=== PATIENT | male | born 1975 | race Caucasian/White ===

== ENCOUNTER 2022-09-25 07:59 | Inpatient (IN) | payer BC ==
[2022-09-25] MEDS ORDERED: HYDROmorphone 1 MG/ML 1 ML SYRINGE IVP STA ×3 (08:17→11:15)
[2022-09-25] MEDS ORDERED: SODIUM CHLORIDE 0.9% 1,000 ML IV STA (08:17)
[2022-09-25] MEDS ORDERED: ONDANSETRON 4 MG/2 ML VIAL IVP STA (08:17)
[2022-09-25] MEDS ORDERED: FAMOTIDINE 20 MG/2 ML VIAL IV STA (08:17)
--- NOTE | 2022-09-25 08:19 | ED ---
General Adult HPI - General Chief complaint: Abdominal Pain Stated complaint: Abd pain Time Seen by Provider: 09/25/22 08:10 Source: patient, RN notes reviewed Mode of arrival: ambulatory Limitations: no limitations - History of Present Illness Initial comments: Patient is a pleasant 46-year-old male presenting to the emergency department with concerns with abdominal pain. Onset of symptoms was a few hours ago. Symptoms have presently worsened since that time. Patient is nauseated however no vomiting. No history of similar symptoms previously. No fever. No constipation or diarrhea. Discomfort is somewhat severe at this point. - Related Data Allergies Allergy/AdvReac Type Severity Reaction Status Date / Time No Known Allergies Allergy Verified 09/25/22 08:06 Review of Systems ROS Statement: Those systems with pertinent positive or pertinent negative responses have been documented in the HPI. ROS Other: All systems not noted in ROS Statement are negative. Constitutional: Denies: fever Eyes: Denies: eye pain ENT: Denies: ear pain Respiratory: Denies: cough Cardiovascular: Denies: chest pain Endocrine: Denies: fatigue Gastrointestinal: Reports: as per HPI, abdominal pain, nausea. Denies: vomiting, diarrhea, constipation Genitourinary: Denies: dysuria Musculoskeletal: Denies: arthralgia Skin: Denies: rash Neurological: Denies: weakness Past Medical History Past Medical History: No Reported History History of Any Multi-Drug Resistant Organisms: None Reported Past Surgical History: No Surgical Hx Reported Past Psychological History: No Psychological Hx Reported Smoking Status: Never smoker Past Alcohol Use History: Occasional Past Drug Use History: None Reported General Exam Limitations: no limitations General appearance: alert Head exam: Present: atraumatic Eye exam: Present: normal appearance Neck exam: Present: normal inspection Respiratory exam: Present: normal lung sounds bilaterally Cardiovascular Exam: Present: regular rate, normal rhythm Expanded Peripheral pulses: 2+: Dorsalis Pedis (R), Dorsalis Pedis (L) GI/Abdominal exam: Present: soft, tenderness (Moderate diffuse tenderness), guarding, normal bowel sounds. Absent: rebound, rigid, pulsatile mass Extremities exam: Present: normal inspection Neurological exam: Present: alert Psychiatric exam: Present: normal affect, normal mood Skin exam: Present: normal color Course Vital Signs 09/25/22 08:04 Temperature 98 F Pulse Rate 75 Respiratory 18 Rate Blood Pressure 145/70 O2 Sat by Pulse 98 Oximetry Medical Decision Making - Medical Decision Making Patient reevaluated and still uncomfortable however improved from prior. Patient updated on results and plan. Patient denies significant alcohol use and states he rarely drinks. Patient states he is not drank alcohol heavily since his early 20s. No history of previous pancreatitis. Case was discussed with Dr. Vega, who will admit covering Dr. Laguerre - Lab Data Result diagrams: 09/25/22 08:30 09/25/22 08:30 Lab Results 09/25/22 09/25/22 09/25/22 Range/Units 08:30 08:30 08:30 WBC 17.7 H (3.8-10.6) k/uL RBC 4.97 (4.30-5.90) m/uL Hgb 15.8 (13.0-17.5) gm/dL Hct 44.7 (39.0-53.0) % MCV 89.8 (80.0-100.0) fL MCH 31.9 (25.0-35.0) pg MCHC 35.5 (31.0-37.0) g/dL RDW 12.0 (11.5-15.5) % Plt Count 312 (150-450) k/uL MPV 7.7 Neutrophils % 63 % Lymphocytes % 24 % Monocytes % 8 % Eosinophils % 2 % Basophils % 1 % Neutrophils # 11.1 H (1.3-7.7) k/uL Lymphocytes # 4.3 (1.0-4.8) k/uL Monocytes # 1.4 H (0-1.0) k/uL Eosinophils # 0.4 (0-0.7) k/uL Basophils # 0.1 (0-0.2) k/uL PT 10.0 (9.0-12.0) sec INR 0.9 (<1.2) APTT 21.6 L (22.0-30.0) sec Sodium 140 (137-145) mmol/L Potassium 4.5 (3.5-5.1) mmol/L Chloride 106 (98-107) mmol/L Carbon Dioxide 24 (22-30) mmol/L Anion Gap 10 mmol/L BUN 17 (9-20) mg/dL Creatinine 0.93 (0.66-1.25) mg/dL Est GFR (CKD-EPI)AfAm >90 (>60 ml/min/1.73 sqM) Est GFR (CKD-EPI)NonAf >90 (>60 ml/min/1.73 sqM) Glucose 144 H (74-99) mg/dL Calcium 8.4 (8.4-10.2) mg/dL Total Bilirubin 0.8 (0.2-1.3) mg/dL AST 59 (17-59) U/L ALT 82 H (4-49) U/L Alkaline Phosphatase 87 (38-126) U/L Total Protein 6.9 (6.3-8.2) g/dL Albumin 4.4 (3.5-5.0) g/dL Amylase 2319 H* (30-110) U/L Lipase >87424 H (23-300) U/L - Radiology Data Interpreted by me: Computed tomography scan concerning for pancreatitis Disposition Clinical Impression: Pancreatitis Disposition: ADMITTED IP TO THIS HOSP Is patient prescribed a controlled substance at d/c from ED?: No Referrals: Tray Laguerre MD [Primary Care Provider] - 1-2 days Time of Disposition: 11:12
[2022-09-25 08:45] LABS: Basophils # (A) 0.1 k/uL (0-0.2); Basophils % (A) 1 %; Eosinophils # (A) 0.4 k/uL (0-0.7); Eosinophils % (A) 2 %; HCT 44.7 % (39.0-53.0); HGB 15.8 gm/dL (13.0-17.5); Lymphocytes # (A) 4.3 k/uL (1.0-4.8); Lymphocytes % (A) 24 %; MCH 31.9 pg (25.0-35.0); MCHC 35.5 g/dL (31.0-37.0); MCV 89.8 fL (80.0-100.0); Mean Platelet Volume 7.7; Monocytes # (A) 1.4 k/uL (0-1.0); Monocytes % (A) 8 %; Neutrophils # (A) 11.1 k/uL (1.3-7.7); Neutrophils % (A) 63 %; Platelet Count 312 k/uL (150-450); RBC 4.97 m/uL (4.30-5.90); WBC 17.7 k/uL (3.8-10.6)
[2022-09-25 09:08] LABS: ALT 82 U/L (4-49); AST 59 U/L (17-59); African American GFR (CKD) >90 (>60 ml/min/1.73 sqM); Albumin 4.4 g/dL (3.5-5.0); Alkaline Phosphatase 87 U/L (38-126); Anion Gap 10 mmol/L; Blood Urea Nitrogen 17 mg/dL (9-20); Calcium 8.4 mg/dL (8.4-10.2); Carbon Dioxide 24 mmol/L (22-30); Chloride 106 mmol/L (98-107); Glucose 144 mg/dL (74-99); Non-African American GFR(CKD) >90 (>60 ml/min/1.73 sqM); Potassium 4.5 mmol/L (3.5-5.1); Sodium 140 mmol/L (137-145); Total Bilirubin 0.8 mg/dL (0.2-1.3); Total Protein 6.9 g/dL (6.3-8.2)
--- NOTE | 2022-09-25 09:32 | CT ---
EXAMINATION TYPE: CT abdomen pelvis wo con DATE OF EXAM: 09/25/2022 COMPARISON: None HISTORY: Right lower quadrant abdominal pain and nausea. CT DLP: 1595.4 mGycm Examination of the solid and hollow viscera is limited given the lack of contrast. FINDINGS: LUNG BASES: No evidence for nodule. No evidence for infiltrate. LIVER/GB: The gallbladder is unremarkable. No space-occupying hepatic lesion. PANCREAS: There is edema of the pancreatic head and neck with peripancreatic stranding compatible wit h pancreatitis. No evidence for pseudocyst. Correlate with amylase and lipase. SPLEEN: No evidence for splenomegaly. No intrasplenic lesions seen. ADRENALS: No adrenal nodules identified. No evidence for thickening. KIDNEYS: No evidence for renal mass. No nephrolithiasis. No hydronephrosis. BOWEL: Appendix has a normal appearance. No evidence of bowel obstruction. No inflammatory process. Lymph nodes: No evidence for adenopathy greater than 1 cm. Abdominal aorta: Atheromatous changes seen. No evidence for aneurysm. Genital organs: No significant abnormality. Other: No significant abnormality. IMPRESSION: 1. Findings compatible with acute pancreatitis. Correlate with amylase and lipase.
[2022-09-25 09:47] LABS: Amylase 2319 U/L (30-110)
[2022-09-25 10:00] LABS: INR 0.9 (<1.2)
[2022-09-25 10:03] LABS: Partial Thromboplastin Time 21.6 sec (22.0-30.0)
[2022-09-25 10:12] LABS: Lipase >20000 U/L (23-300)
[2022-09-25] MEDS ORDERED: NALOXONE 0.4 MG/ML 1 ML VIAL IV PRN (11:13)
[2022-09-25] MEDS ORDERED: HYDROmorphone 1 MG/ML 1 ML SYRINGE IVP PRN (11:13)
[2022-09-25] MEDS: SODIUM CHLORIDE 0.9% 1,000 ML IV SCH ×2 (11:24→17:53)
[2022-09-25] MEDS: PANTOPRAZOLE 40 MG/10 ML VIAL IV SCH (11:25)
[2022-09-25] MEDS: ONDANSETRON 4 MG/2 ML VIAL IVP PRN (11:28)
--- NOTE | 2022-09-25 12:08 | US ---
EXAMINATION TYPE: US gallbladder DATE OF EXAM: 09/25/2022 COMPARISON: NONE CLINICAL HISTORY: pancreatitis. abd pain, pancreatitis TECHNIQUE: Multiple sonographic images of the right upper quadrant are obtained. FINDINGS: EXAM MEASUREMENTS: Liver Length: 18.5 cm Gallbladder Wall: 0.2 cm CBD: 0.5 cm Right Kidney: 11.2 x 5.4 x 6.2 cm Pancreas: not seen due to gas Liver: limited views of left lobe, intercostal imaging of right, upper limits of normal for size Gallbladder: wnl Evidence for sonographic Shipley's sign: yes CBD: wnl Right Kidney: wnl IMPRESSION: No evidence for cholelithiasis. Pancreas limited as visualized.
[2022-09-25] MEDS: HYDROmorphone 1 MG/ML 1 ML SYRINGE IVP PRN ×4 (16:42→23:16)
--- NOTE | 2022-09-25 18:24 | P.HPIM ---
History of Present Illness H&P Date: 09/25/22 Chief Complaint: Abdominal pain 46-year-old male presenting to the emergency department with concerns with abdominal pain. Onset of symptoms was a few hours ago. Symptoms have presently worsened since that time. Patient is nauseated however no vomiting. No history of similar symptoms previously. No fever. No constipation or diarrhea. Discomfort is somewhat severe at this point. Patient denies any history of alcohol abuse; report he used to drink heavily in his early 20s but none since then Blood work completed in ED reveals a WBC of 17.7, hemoglobin of 15.8 and platelet count of 302, sodium 140, potassium 4.5, BUN 17/creatinine of 0.93 and blood glucose of 144 -- Amylase is elevated at 2319, lipase elevated above 20,000 -- CT of abdomen completed reveals changes consistent with pancreatitis Review of Systems Constitutional: Denies: fever Eyes: Denies: eye pain ENT: Denies: ear pain Respiratory: Denies: cough Cardiovascular: Denies: chest pain Endocrine: Denies: fatigue Gastrointestinal: Reports: as per HPI, abdominal pain, nausea. Denies: vomiting, diarrhea, constipation Genitourinary: Denies: dysuria Musculoskeletal: Denies: arthralgia Skin: Denies: rash Neurological: Denies: weakness Past Medical History Past Medical History: GERD/Reflux, Hyperlipidemia, Hypertension History of Any Multi-Drug Resistant Organisms: None Reported Past Surgical History: No Surgical Hx Reported Past Anesthesia/Blood Transfusion Reactions: No Reported Reaction Smoking Status: Never smoker - Past Family History Mother Family Medical History: Diabetes Mellitus Father Additional Family Medical History / Comment(s): mental illness Medications and Allergies Home Medications Medication Instructions Recorded Confirmed Type Atorvastatin [Lipitor] 20 mg PO HS 09/25/22 09/25/22 History Dextroamphetamine/Amphetamine 15 mg PO DAILY 09/25/22 09/25/22 History [Adderall Xr 15 mg Capsule] Losartan Potassium 100 mg PO HS 09/25/22 09/25/22 History Omeprazole 20 mg PO HS 09/25/22 09/25/22 History Zolpidem [Ambien] 10 mg PO HS 09/25/22 09/25/22 History Allergies Allergy/AdvReac Type Severity Reaction Status Date / Time No Known Allergies Allergy Verified 09/25/22 13:17 Physical Exam Vitals: Vital Signs Temp Pulse Pulse Resp BP BP Pulse Ox 09/25/22 12:17 78 16 98 09/25/22 12:15 98.1 F 74 18 154/108 94 L 09/25/22 08:04 98 F 75 18 145/70 98 Intake and Output 09/24/22 09/25/22 09/25/22 22:59 06:59 14:59 Other: Weight 126.099 kg General appearance: alert Head exam: Present: atraumatic Eye exam: Present: normal appearance Neck exam: Present: normal inspection Respiratory exam: Present: normal lung sounds bilaterally Cardiovascular Exam: Present: regular rate, normal rhythm Expanded Peripheral pulses: 2+: Dorsalis Pedis (R), Dorsalis Pedis (L) GI/Abdominal exam: Present: soft, tenderness (Moderate diffuse tenderness), guarding, normal bowel sounds. Absent: rebound, rigid, pulsatile mass Extremities exam: Present: normal inspection Neurological exam: Present: alert Psychiatric exam: Present: normal affect, normal mood Skin exam: Present: normal color Results CBC & Chem 7: 09/25/22 08:30 09/25/22 08:30 Labs: Abnormal Lab Results - Last 24 Hours (Table) 09/25/22 09/25/22 09/25/22 Range/Units 08:30 08:30 08:30 WBC 17.7 H (3.8-10.6) k/uL Neutrophils # 11.1 H (1.3-7.7) k/uL Monocytes # 1.4 H (0-1.0) k/uL APTT 21.6 L (22.0-30.0) sec Glucose 144 H (74-99) mg/dL ALT 82 H (4-49) U/L Amylase 2319 H* (30-110) U/L Lipase >35868 H (23-300) U/L Thrombosis Risk Factor Assmnt - Choose All That Apply Any of the Below Risk Factors Present?: Yes Each Factor Represents 1 point: Age 41-60 years, Obesity (BMI >25) Other Risk Factors: No Other congenital or acquired thrombophilia - If yes, enter type in comment: No Thrombosis Risk Factor Assessment Total Risk Factor Score: 2 Thrombosis Risk Factor Assessment Level: Low Risk Assessment and Plan Assessment: 1. Acute pancreatitis - Patient has been admitted for IV fluid hydration in form of normal saline at a rate of 1 30 mL an hour, Protonix 40 mg IV daily - Pain controlled with IV Dilaudid at 1 mg every 3 hours when necessary - Plan to keep patient nothing by mouth; monitor amylase lipase -- Gen. surgery is consulted for further recommendations and workup 2. Leukocytosis; patient doesn't reveal any sign of infection; likely reactive; we will monitor CBC, CRP and pro-calcitonin; we will plan to initiate sepsis workup if white blood count blood count continues to trend up 3. Hypertension; losartan 100 mg by mouth daily at bedtime 4. Hyperlipidemia; Lipitor 20 mg by mouth daily at bedtime; we will order lipid profile 5. ADHD; Adderall XL 15 mg daily 6. Obesity; patient has a BMI of greater than 36; counseling done on need for weight reduction DVT prophylaxis; SCDs/early ambulation CODE STATUS; full code
[2022-09-25] MEDS: ATORVASTATIN 20 MG TAB PO SCH (20:47)
[2022-09-25] MEDS: LOSARTAN 50 MG TAB PO SCH (20:47)
[2022-09-25] MEDS ORDERED: ZOLPIDEM 5 MG TAB PO PRN (21:00)
[2022-09-26] MEDS: HYDROmorphone 1 MG/ML 1 ML SYRINGE IVP PRN ×10 (01:01→23:58)
[2022-09-26] MEDS: SODIUM CHLORIDE 0.9% 1,000 ML IV SCH ×4 (01:02→23:59)
[2022-09-26] MEDS: DEXTROAMPHETAMINE PO SCH (07:59)
[2022-09-26] MEDS: AMPHETAMINE PO SCH (07:59)
[2022-09-26] MEDS: PANTOPRAZOLE 40 MG/10 ML VIAL IV SCH (08:01)
[2022-09-26 09:50] LABS: Basophils # (A) 0.02 X 10*3/uL (0.00-0.10); Basophils % (A) 0.1 %; Eosinophils # (A) 0.05 X 10*3/uL (0.04-0.35); Eosinophils % (A) 0.3 %; HCT 44.7 % (39.6-50.0); HGB 14.9 g/dL (13.0-17.0); Immature Grans, Automated 0.5 %; Lymphocytes # (A) 1.37 X 10*3/uL (0.90-5.00); Lymphocytes % (A) 9.5 %; MCH 31.4 pg (27.0-32.0); MCHC 33.3 g/dL (32.0-37.0); MCV 94.1 fL (80.0-97.0); Mean Platelet Volume 10.1 fL (9.5-12.2); Monocytes # (A) 1.13 X 10*3/uL (0.20-1.00); Monocytes % (A) 7.8 %; NRBC Per 100 WBC 0 /100 WBCS (0.0-0.0); Neutrophils # (A) 11.83 X 10*3/uL (1.80-7.70); Neutrophils % (A) 81.8 %; Platelet Count 264 X 10*3/uL (140-440); RBC 4.75 X 10*6/uL (4.40-5.60); RDW 12.2 % (11.5-14.5); WBC 14.47 X 10*3/uL (4.50-10.00)
[2022-09-26 09:58] LABS: ALT 63 U/L (10-49); AST 28 U/L (14-35); African American GFR (CKD) 98.2 (60.0-200.0); Albumin 4.2 g/dL (3.8-4.9); Albumin/Globulin Ratio 2.26 (1.60-3.17); Alkaline Phosphatase 82 U/L (41-126); Amylase 382 U/L (23-121); Blood Urea Nitrogen 12.7 mg/dL (9.0-27.0); Calcium 8.8 mg/dL (8.7-10.3); Carbon Dioxide 28.2 mmol/L (20.0-27.5); Chloride 102 mmol/L (96-109); Chol/HDL Ratio 2.56 Ratio; Globulin 1.9 g/dL (1.6-3.3); Glucose 110 mg/dL (70-110); LDH 217 U/L (120-246); LDL Cholesterol,Calculated 43.7 mg/dL (0.0-131.0); Non-African American GFR(CKD) 84.7 (60.0-200.0); Potassium 4.3 mmol/L (3.5-5.5); Sodium 141 mmol/L (135-145); Total Protein 6.1 g/dL (6.2-8.2)
--- NOTE | 2022-09-26 11:11 | P.GSCN ---
History of Present Illness Consult date: 09/26/22 Reason for Consult: Pancreatitis History of present illness: The fourth external male was admitted to the emergency room with complaints of epigastric pain which radiates to his back. Patient's workup found have evidence of hepatitis. Patient denies any significant alcohol use. His last drink was over 3 weeks ago. Patient states he still has pain this morning. Past Medical History Past Medical History: GERD/Reflux, Hyperlipidemia, Hypertension History of Any Multi-Drug Resistant Organisms: None Reported Past Surgical History: No Surgical Hx Reported Past Anesthesia/Blood Transfusion Reactions: No Reported Reaction Smoking Status: Never smoker - Past Family History Mother Family Medical History: Diabetes Mellitus Father Additional Family Medical History / Comment(s): mental illness Medications and Allergies Home Medications Medication Instructions Recorded Confirmed Type Atorvastatin [Lipitor] 20 mg PO HS 09/25/22 09/25/22 History Dextroamphetamine/Amphetamine 15 mg PO DAILY 09/25/22 09/25/22 History [Adderall Xr 15 mg Capsule] Losartan Potassium 100 mg PO HS 09/25/22 09/25/22 History Omeprazole 20 mg PO HS 09/25/22 09/25/22 History Zolpidem [Ambien] 10 mg PO HS 09/25/22 09/25/22 History Allergies Allergy/AdvReac Type Severity Reaction Status Date / Time No Known Allergies Allergy Verified 09/25/22 13:17 Surgical - Exam Vital Signs Temp Pulse Resp BP Pulse Ox 98 F 75 18 145/70 98 09/25/22 08:04 09/25/22 08:04 09/25/22 08:04 09/25/22 08:04 09/25/22 08:04 - General well developed, moderate distress - Eyes PERRL - ENT normal pinna - Neck no masses - Respiratory normal expansion - Cardiovascular Rhythm: regular - Abdomen Mild epigastric tenderness Abdomen: soft Results - Labs 09/26/22 05:29 09/26/22 05:29 Abnormal Lab Results - Last 24 Hours (Table) 09/26/22 09/26/22 Range/Units 05:29 05:29 WBC 14.47 H (4.50-10.00) X 10*3/uL Immature Gran # 0.07 H (0.00-0.04) X 10*3/uL Neutrophils # 11.83 H (1.80-7.70) X 10*3/uL Monocytes # 1.13 H (0.20-1.00) X 10*3/uL Carbon Dioxide 28.2 H (20.0-27.5) mmol/L ALT 63 H (10-49) U/L Total Protein 6.1 L (6.2-8.2) g/dL Triglycerides 165.00 H (0.00-149.00) mg/dL Amylase 382 H* (23-121) U/L Diabetes panel 09/26/22 Range/Units 05:29 Sodium 141 (135-145) mmol/L Potassium 4.3 (3.5-5.5) mmol/L Chloride 102 (96-109) mmol/L Carbon Dioxide 28.2 H (20.0-27.5) mmol/L BUN 12.7 (9.0-27.0) mg/dL Creatinine 1.1 (0.6-1.5) mg/dL Glucose 110 (70-110) mg/dL Calcium 8.8 (8.7-10.3) mg/dL AST 28 (14-35) U/L ALT 63 H (10-49) U/L Alkaline Phosphatase 82 (41-126) U/L Total Protein 6.1 L (6.2-8.2) g/dL Albumin 4.2 (3.8-4.9) g/dL Triglycerides 165.00 H (0.00-149.00) mg/dL HDL Cholesterol 49.30 (40.00-60.00) mg/dL Calcium panel 09/26/22 Range/Units 05:29 Calcium 8.8 (8.7-10.3) mg/dL Albumin 4.2 (3.8-4.9) g/dL Pituitary panel 09/26/22 Range/Units 05:29 Sodium 141 (135-145) mmol/L Potassium 4.3 (3.5-5.5) mmol/L Chloride 102 (96-109) mmol/L Carbon Dioxide 28.2 H (20.0-27.5) mmol/L BUN 12.7 (9.0-27.0) mg/dL Creatinine 1.1 (0.6-1.5) mg/dL Glucose 110 (70-110) mg/dL Calcium 8.8 (8.7-10.3) mg/dL Adrenal panel 09/26/22 Range/Units 05:29 Sodium 141 (135-145) mmol/L Potassium 4.3 (3.5-5.5) mmol/L Chloride 102 (96-109) mmol/L Carbon Dioxide 28.2 H (20.0-27.5) mmol/L BUN 12.7 (9.0-27.0) mg/dL Creatinine 1.1 (0.6-1.5) mg/dL Glucose 110 (70-110) mg/dL Calcium 8.8 (8.7-10.3) mg/dL Total Bilirubin 1.10 (0.30-1.20) mg/dL AST 28 (14-35) U/L ALT 63 H (10-49) U/L Alkaline Phosphatase 82 (41-126) U/L Total Protein 6.1 L (6.2-8.2) g/dL Albumin 4.2 (3.8-4.9) g/dL - Imaging US - abdomen: report reviewed (No evidence of cholelithiasis) Assessment and Plan Assessment: Pancreatitis. The etiology is unclear this time. Patient may have microcalcifications which has caused gallbladder pancreas. Patient will be o bserved.
[2022-09-26 11:35] LABS: Lipase 495 U/L (14-60)
--- NOTE | 2022-09-26 19:17 | P.PN ---
Subjective Progress Note Date: 09/26/22 Principal diagnosis: Acute pancreatitis Transaminitis Obesity 46-year-old male presenting to the emergency department with concerns with abdominal pain. Onset of symptoms was a few hours ago. Symptoms have presently worsened since that time. Patient is nauseated however no vomiting. No history of similar symptoms previously. No fever. No constipation or diarrhea. Discomfort is somewhat severe at this point. Patient denies any history of alcohol abuse; report he used to drink heavily in his early 20s but none since then Blood work completed in ED reveals a WBC of 17.7, hemoglobin of 15.8 and platelet count of 302, sodium 140, potassium 4.5, BUN 17/creatinine of 0.93 and blood glucose of 144 -- Amylase is elevated at 2319, lipase elevated above 20,000 -- CT of abdomen completed reveals changes consistent with pancreatitis Gallbladder and Hepatic ultrasound completed per surgery recommendations and is unremarkable Laboratory review shows improved white blood count of 14.4 from 17.7 yesterday, lipase is down to 495 from greater than 20,000 yesterday Patient reports improvement in pain; we will initiate a clear liquid diet Objective - Vital Signs Vital signs: Vital Signs Temp 98.6 F 09/26/22 05:00 Pulse 99 09/26/22 05:00 Resp 16 09/26/22 05:00 BP 159/107 09/26/22 05:00 Pulse Ox 95 09/26/22 05:00 FiO2 Intake & Output 09/25/22 09/26/22 09/26/22 18:59 06:59 18:59 Intake Total 780 Balance 780 Weight 126.099 kg Intake: Intake, IV Titration 780 Amount Sodium Chloride 0.9% 1, 780 000 ml @ 130 mls/hr IV . Q7H42M [facility] Rx#:[id number] Other: # Voids 2 2 - Exam General appearance: alert Head exam: Present: atraumatic Eye exam: Present: normal appearance Neck exam: Present: normal inspection Respiratory exam: Present: normal lung sounds bilaterally Cardiovascular Exam: Present: regular rate, normal rhythm Expanded Peripheral pulses: 2+: Dorsalis Pedis (R), Dorsalis Pedis (L) GI/Abdominal exam: Present: soft, tenderness (Moderate diffuse tenderness), guarding, normal bowel sounds. Absent: rebound, rigid, pulsatile mass Extremities exam: Present: normal inspection Neurological exam: Present: alert Psychiatric exam: Present: normal affect, normal mood Skin exam: Present: normal color - Labs CBC & Chem 7: 09/26/22 05:29 09/26/22 05:29 Labs: Abnormal Lab Results - Last 24 Hours (Table) 09/25/22 09/25/22 Range/Units 08:30 08:30 APTT 21.6 L (22.0-30.0) sec Lipase >40554 H (23-300) U/L Assessment and Plan Assessment: 1. Acute pancreatitis - Patient has been admitted for IV fluid hydration in form of normal saline at a rate of 1 30 mL an hour, Protonix 40 mg IV daily - Pain controlled with IV Dilaudid at 1 mg every 3 hours when necessary - Plan to keep patient nothing by mouth; monitor amylase lipase -- Gen. surgery is consulted for further recommendations and workup 2. Leukocytosis; patient doesn't reveal any sign of infection; likely reactive; we will monitor CBC, CRP and pro-calcitonin; we will plan to initiate sepsis workup if white blood count blood count continues to trend up 3. Hypertension; losartan 100 mg by mouth daily at bedtime 4. Hyperlipidemia; Lipitor 20 mg by mouth daily at bedtime; we will order lipid profile 5. ADHD; Adderall XL 15 mg daily 6. Obesity; patient has a BMI of greater than 36; counseling done on need for weight reduction DVT prophylaxis; SCDs/early ambulation CODE STATUS; full code
[2022-09-26] MEDS: LOSARTAN 50 MG TAB PO SCH (20:05)
[2022-09-26] MEDS: ATORVASTATIN 20 MG TAB PO SCH (20:05)
[2022-09-26] MEDS: ACETAMINOPHEN TAB 500 MG TAB PO PRN (20:23)
[2022-09-27] MEDS: HYDROmorphone 1 MG/ML 1 ML SYRINGE IVP PRN ×8 (03:49→23:44)
[2022-09-27] MEDS: SODIUM CHLORIDE 0.9% 1,000 ML IV SCH ×4 (06:24→23:42)
[2022-09-27 09:03] LABS: Basophils % (A) 0 %; Eosinophils # (A) 0.1 k/uL (0-0.7); Eosinophils % (A) 1 %; HCT 44.9 % (39.0-53.0); Lymphocytes # (A) 1.3 k/uL (1.0-4.8); Lymphocytes % (A) 11 %; MCH 31.7 pg (25.0-35.0); MCHC 33.4 g/dL (31.0-37.0); Mean Platelet Volume 8.7; Monocytes # (A) 0.9 k/uL (0-1.0); Monocytes % (A) 8 %; Neutrophils # (A) 8.9 k/uL (1.3-7.7); Neutrophils % (A) 79 %; Platelet Count 261 k/uL (150-450); RBC 4.74 m/uL (4.30-5.90); RDW 12.1 % (11.5-15.5); WBC 11.3 k/uL (3.8-10.6)
[2022-09-27 09:04] LABS: African American GFR (CKD) 92.8 (60.0-200.0); Anion Gap 9.8 mmol/L (10.00-18.00); BUN/Creat Ratio 12.55 Ratio (12.00-20.00); Blood Urea Nitrogen 13.8 mg/dL (9.0-27.0); Calcium 8.5 mg/dL (8.7-10.3); Carbon Dioxide 27.2 mmol/L (20.0-27.5); Non-African American GFR(CKD) 80.1 (60.0-200.0); Potassium 4.4 mmol/L (3.5-5.5)
[2022-09-27] MEDS: DEXTROAMPHETAMINE PO SCH (09:12)
[2022-09-27] MEDS: AMPHETAMINE PO SCH (09:12)
[2022-09-27] MEDS: PANTOPRAZOLE 40 MG/10 ML VIAL IV SCH (09:15)
[2022-09-27 09:30] LABS: MCV 94.8 fL (80.0-100.0)
[2022-09-27 10:50] LABS: RBC Morphology Normal
[2022-09-27] MEDS ORDERED: HYDROcodone/APAP 5-325MG 1 EACH TAB PO PRN (11:22)
--- NOTE | 2022-09-27 15:02 | P.PN ---
Subjective Progress Note Date: 09/27/22 CHIEF COMPLAINT: Pancreatitis HISTORY OF PRESENT ILLNESS: Patient continues to have epigastric abdominal pain. He reports feeling bloated. His pain is decreased compared to admission. However does get up to 8 out of 10. He reports that it's been 2 days since his last bowel movement. He did have a low-grade temp of 100.7 last night. Heart rate 107 WBC is down from 14-11.3 Hgb 15 platelets 261 sodium is 138 potassium 4.4 creatinine 1.1 lipase is down to 88 amylase 382 triglycerides 165 total bili 1.1 AST 28 ALT is down from 82-63 gallbladder ultrasound no cholelithiasis PHYSICAL EXAM: VITAL SIGNS: Reviewed. GENERAL: Well-developed in no acute distress. HEENT: No sclera icterus. Extraocular movements grossly intact. Moist buccal mucosa. Head is atraumatic, normocephalic. ABDOMEN: Mildly distended. Epigastric tenderness. NEUROLOGIC: Alert and oriented. Cranial nerves II through XII grossly intact. ASSESSMENT: 1. Acute pancreatitis exact etiology unclear. Possibly due to microscopic gallstones PLAN: -Continue clear liquid diet. Discussed with patient if pain increases after eating to stop eating -Continue IV fluids -Continue pain management -Continue supportive care -Encouraged patient to ambulate Physician [employer] President note has been reviewed by physician. Signing provider agrees with the documented findings, assessment, and plan of care. Objective - Vital Signs Vital signs: Vital Signs Temp 98.6 F 09/27/22 11:27 Pulse 107 H 09/27/22 11:27 Resp 18 09/27/22 11:27 BP 148/94 09/27/22 11:27 Pulse Ox 93 L 09/27/22 11:27 FiO2 Intake & Output 09/26/22 09/27/22 09/27/22 18:59 06:59 18:59 Intake Total 1560 1999 Balance 1560 1999 Intake: Intake, IV Titration 1560 1400 Amount Sodium Chloride 0.9% 1, 1560 1400 000 ml @ 130 mls/hr IV . Q7H42M [facility] Rx#:[id number] Oral 600 Other: Voiding Method Toilet Toilet # Voids 4 - Labs CBC & Chem 7: 09/27/22 05:07 09/27/22 05:07 Labs: Abnormal Lab Results - Last 24 Hours (Table) 09/26/22 09/27/22 09/27/22 Range/Units 05:29 05:07 05:07 WBC 11.3 H (3.8-10.6) k/uL Neutrophils # 8.9 H (1.3-7.7) k/uL Carbon Dioxide 28.2 H (20.0-27.5) mmol/L Anion Gap 9.80 L (10.00-18.00) mmol/L Calcium 8.5 L (8.7-10.3) mg/dL ALT 63 H (10-49) U/L Troponin I (0.000-0.034) ng/mL Total Protein 6.1 L (6.2-8.2) g/dL Triglycerides 165.00 H (0.00-149.00) mg/dL Amylase 382 H* (23-121) U/L Lipase 495 H 88 H (14-60) U/L 09/27/22 Range/Units 13:03 WBC (3.8-10.6) k/uL Neutrophils # (1.3-7.7) k/uL Carbon Dioxide (20.0-27.5) mmol/L Anion Gap (10.00-18.00) mmol/L Calcium (8.7-10.3) mg/dL ALT (10-49) U/L Troponin I 0.065 H* (0.000-0.034) ng/mL Total Protein (6.2-8.2) g/dL Triglycerides (0.00-149.00) mg/dL Amylase (23-121) U/L Lipase (14-60) U/L
[2022-09-27] MEDS: MEROPENEM 2 GM in SODIUM CHLORIDE 0.9% 100 ML IVPB SCH ×2 (15:08→23:42)
[2022-09-27] MEDS: ACETAMINOPHEN TAB 500 MG TAB PO PRN (19:34)
[2022-09-27] MEDS: LOSARTAN 50 MG TAB PO SCH (20:11)
[2022-09-27] MEDS: ATORVASTATIN 20 MG TAB PO SCH (20:11)
--- NOTE | 2022-09-27 20:59 | PN ---
PROGRESS NOTE DATE OF SERVICE: 09/27/2022 SUBJECTIVE: This 46-year-old gentleman, who was admitted with acute pancreatitis, being closely monitored. The patient abdominal pain. No chest pain. No palpitations. No fever. OBJECTIVE: VITAL SIGNS: Pulse is 107, blood pressure ntd, respirations 18. CHEST: Clear to auscultation. CARDIOVASCULAR: S1, S2. ABDOMEN: Soft. Minimal tenderness in the upper abdomen. NERVOUS SYSTEM: Nonfocal. LABORATORY DATA: Reviewed. Lipase 88. ASSESSMENT: 1. Acute pancreatitis, enzymes improving. 2. Leukocytosis. 3. Hypertension. 4. Hyperlipidemia. RECOMMENDATIONS: I recommend to continue current medications and symptomatic treatment. Otherwise, I would also recommend a portable chest x-ray. Continue with IV fluids. EKG, 2D echo with Doppler. Further recommendations to follow. MMODL / IJN: [id number] / MTDD
[2022-09-28] MEDS: HYDROmorphone 1 MG/ML 1 ML SYRINGE IVP PRN ×5 (04:06→20:47)
[2022-09-28] MEDS: MEROPENEM 2 GM in SODIUM CHLORIDE 0.9% 100 ML IVPB SCH ×3 (08:37→23:02)
[2022-09-28] MEDS: PANTOPRAZOLE 40 MG/10 ML VIAL IV SCH (08:37)
[2022-09-28] MEDS: SODIUM CHLORIDE 0.9% 1,000 ML IV SCH ×3 (08:39→23:01)
[2022-09-28] MEDS: DEXTROAMPHETAMINE PO SCH (08:40)
[2022-09-28] MEDS: AMPHETAMINE PO SCH (08:40)
[2022-09-28 09:33] LABS: African American GFR (CKD) 118.3 (60.0-200.0); Albumin 3.5 g/dL (3.8-4.9); Albumin/Globulin Ratio 1.94 (1.60-3.17); Anion Gap 11.9 mmol/L (10.00-18.00); BUN/Creat Ratio 14.67 Ratio (12.00-20.00); Blood Urea Nitrogen 13.2 mg/dL (9.0-27.0); Calcium 8.4 mg/dL (8.7-10.3); Carbon Dioxide 25.1 mmol/L (20.0-27.5); Globulin 1.8 g/dL (1.6-3.3); Non-African American GFR(CKD) 102.1 (60.0-200.0); Potassium 3.7 mmol/L (3.5-5.5); Total Bilirubin 1.2 mg/dL (0.30-1.20); Total Protein 5.3 g/dL (6.2-8.2)
--- NOTE | 2022-09-28 09:35 | P.PN ---
Subjective Progress Note Date: 09/28/22 History of present illness: This is a 46-year-old male patient but does not see a ticket collector. He denies any cardiac history. He does have past medical history of hypertension, hyperlipidemia, gastroesophageal reflux disease. Patient presented to the hospital on 09/25 with abdominal pain and has been diagnosed with acute pancreatitis and followed by general surgery. Patient has had improvement of h is pancreatic enzymes. Patient states his pain is on the lower right rib area and epigastric area. He is complaining of some pain across the upper abdomen bilaterally. No chest pain. He denies shortness of breath, lightheadedness or dizziness, denies palpitations. EKG sinus rhythm with nonspecific ST changes Troponins 0.065, 0.066 and 0.063. Most recent lipase 88. WBC 11.3, hemoglobin 15. Electrolytes within normal limits and creatinine 1.1. quality assurance monitor has been a sinus rhythm Review Of Systems: At the time of my evaluation Constitutional: No fever, no chills. No weakness, fatigue or lethargy. EENT: No headache. No dizziness. Lungs: No shortness of breath, cough, no sputum production. No wheezing. Cardiovascular: No chest pain, no lower extremity edema. No palpitations. No paroxysmal nocturnal dyspnea. No orthopnea. No lightheadedness or dizziness. No syncopal episodes. Abdominal: Reports abdominal pain. No nausea, vomiting. No diarrhea. No constipation. No bloody or tarry stools. No loss of appetite. Genitourinary: No dysuria. No urinary retention. Musculoskeletal: No myalgias. No muscle weakness, no gait dysfunction, no frequent falls. Integumentary: No wounds. No rash or pruritus. No unusual bruising. Neurologic: No aphasia. No facial droop. No change in mentation. No head injury. No headache. Psychiatric: No depression. No anxiety. Endocrine: No abnormal blood sugars. Physical examination: Gen: This is a 46-year-old male. He is resting in bed and appears to be comfortable VS: reviewed HEENT: Head is atraumatic, normocephalic. Pupils equal, round. Sclerae is anicteric. NECK: Supple. No JVD. LUNGS: Clear to auscultation. No wheezes or rhonchi. No intercostal retractions. HEART: Regular rate and rhythm. No murmur. ABDOMEN: Soft. No masses. Generalized upper quadrant tenderness most significant at the epigastric and right rib border. EXTREMITIES: No pedal edema. No calf tenderness. NEUROLOGICAL: Patient is awake, alert and oriented x3. Assessment: Acute pancreatitis Abdominal pain Mildly elevated troponins, flat, not indicative of ischemia Hypertension Hyperlipidemia Plan: Acute coronary syndrome has been ruled out Telemetry monitoring has been a sinus rhythm and can be discontinued Obtain 2-D echocardiogram and Doppler study to assess cardiac structure and function Patient may have outpatient cardiac workup once his acute illness is resolved Further recommendations to follow based upon clinical course Thank you kindly for this consultation. Nurse practitioner note has been reviewed, I agree with documented findings and plan of care. Patient was seen and examined. Objective - Vital Signs Vital signs: Vital Signs Temp 99.1 F 09/28/22 04:07 Pulse 98 09/28/22 04:07 Resp 20 09/28/22 04:07 BP 138/88 09/28/22 04:07 Pulse Ox 97 09/28/22 04:07 FiO2 Intake & Output 09/27/22 09/28/22 09/28/22 18:59 06:59 18:59 Intake Total 1660 2630 Balance 1660 2630 Intake: Intake, IV Titration 1660 1530 Amount Meropenem 2 gm In Sodium 100 100 Chloride 0.9% 100 ml @ 33 .3 mls/hr IVPB Q8HR [facility] Rx#:[id number] Sodium Chloride 0.9% 1, 1560 1430 000 ml @ 130 mls/hr IV . Q7H42M [facility] Rx#:[id number] Oral 1100 Other: Voiding Method Toilet Toilet # Voids 2 - Labs CBC & Chem 7: 09/27/22 05:07 09/27/22 05:07 Labs: Abnormal Lab Results - Last 24 Hours (Table) 09/27/22 09/27/22 09/27/22 Range/Units 05:07 05:07 13:03 WBC 11.3 H (3.8-10.6) k/uL Neutrophils # 8.9 H (1.3-7.7) k/uL Anion Gap 9.80 L (10.00-18.00) mmol/L Calcium 8.5 L (8.7-10.3) mg/dL Troponin I 0.065 H* (0.000-0.034) ng/mL Lipase 88 H (14-60) U/L 09/27/22 09/27/22 Range/Units 16:34 19:49 WBC (3.8-10.6) k/uL Neutrophils # (1.3-7.7) k/uL Anion Gap (10.00-18.00) mmol/L Calcium (8.7-10.3) mg/dL Troponin I 0.066 H* 0.063 H* (0.000-0.034) ng/mL Lipase (14-60) U/L
[2022-09-28 09:53] LABS: Basophils # (A) 0.05 X 10*3/uL (0.00-0.10); Eosinophils # (A) 0.15 X 10*3/uL (0.04-0.35); HCT 43.4 % (39.6-50.0); Immature Grans, Automated 0.4 %; Lymphocytes # (A) 1.22 X 10*3/uL (0.90-5.00); Lymphocytes % (A) 24.5 %; MCH 30.3 pg (27.0-32.0); MCHC 32.3 g/dL (32.0-37.0); MCV 93.9 fL (80.0-97.0); Monocytes # (A) 1.26 X 10*3/uL (0.20-1.00); Monocytes % (A) 25.3 %; NRBC Per 100 WBC 0 /100 WBCS (0.0-0.0); Neutrophils # (A) 2.28 X 10*3/uL (1.80-7.70); Neutrophils % (A) 45.8 %; Platelet Count 248 X 10*3/uL (140-440); RBC 4.62 X 10*6/uL (4.40-5.60); RDW 12.1 % (11.5-14.5); WBC 4.98 X 10*3/uL (4.50-10.00)
[2022-09-28 09:54] LABS: RBC Morphology NORMAL
[2022-09-28] MEDS: IOPAMIDOL CONTRAST (ORAL USE) VIAL PO PRN ×2 (11:03→12:00)
--- NOTE | 2022-09-28 13:28 | CT ---
EXAMINATION TYPE: CT abdomen pelvis w con DATE OF EXAM: 09/28/2022 COMPARISON: CT abdomen and pelvis 3 days ago. HISTORY: Pancreatitis and abdominal pain. CT DLP: 3031.6 mGycm, Automated Exposure Control for Dose Reduction was Utilized. CONTRAST: CT scan of the abdomen and pelvis is performed with oral and with IV Contrast, patient injected with 70 mL of Isovue 300. FINDINGS: LUNG BASES: More prominent dependent atelectasis. Additional posterior right lower lung linear atele ctasis is seen currently. LIVER/GB: No significant abnormality is appreciated. PANCREAS: [place] ill-defined fluid and fat stranding surrounding the pancreatic head and pr oximal body is redemonstrated though improved from prior. No new well-formed fluid collection is seen . No areas of nonenhancement to suggest necrosis noted. SPLEEN: No significant abnormality is seen. ADRENALS: No significant abnormality is seen. KIDNEYS: No significant abnormality is seen. BOWEL: Oral contrast seen in nondistended stomach and duodenal sweep. Oral contrast seen in nondisten ded left-sided small bowel loop. More prominent right-sided fluid-filled bowel loops with air-fluid l evels. Some abnormally dilated small bowel loops up to 3.5 cm noted. Fluid prominent terminal ileum. Fluid extends into the right colon along with transverse colon and into the left colon. Fluid extends into portions of the sigmoid colon. No suspicious wall thickening. Normal appearing appendix from th e cecum in the right pelvis is noted. PROSTATE/SEMINAL VESICLES: No gross abnormality seen. LYMPH NODES: No greater than 1cm abdominal or pelvic lymph nodes are appreciated. OSSEOUS STRUCTURES: 6 lumbar type vertebra are redemonstrated. Mild facet arthropathy lower lumbar le vels. OTHER: No significant additional abnormality is seen. IMPRESSION: 1. CT findings consistent with acute pancreatitis remain present though improved from 3 days earlier. 2. There is new enterocolitis and/or diarrhea on the current study. New ileus is suspected. Prominent fluid filled bowel extends into the colon making obstruction unlikely.
--- NOTE | 2022-09-28 14:22 | PN ---
PROGRESS NOTE DATE OF SERVICE: 09/28/2022 SUBJECTIVE: This 46-year-old gentleman with acute history of pancreatitis, also complaining of abdominal pain. The pancreatic enzymes are normalized, but however, the patient continues to have fever and tachycardia. Troponin is mildly elevated. The patient is still on IV fluids and symptomatic treatment. Empiric antibiotics also being initiated. Cultures are obtained. Infectious Disease is on consultation. Multiple consults following the patient closely. PAST MEDICAL HISTORY: Reviewed. REVIEW OF SYSTEMS: A 14-point review of systems is negative except as mentioned earlier. CURRENT MEDICATIONS: Reviewed and include [place]. Dose and rest of the medication noted. PHYSICAL EXAMINATION: VITAL SIGNS: Pulse is 98, blood pressure 133/88, respirations 20. HEENT: Conjunctivae normal. NECK: No JVD. CARDIOVASCULAR: S1, S2. RESPIRATION: Breath sounds diminished at the bases. A few scattered rhonchi. ABDOMEN: Soft. Mild diffuse tenderness in the upper abdomen. No guarding. No rigidity. No mass palpable. No ascites. Bowel sounds present. LEGS: No edema. NERVOUS SYSTEM: Nonfocal. LABORATORY DATA: CBC and CMP noted and reviewed. Troponin noted. ASSESSMENT: 1. Acute severe pancreatitis, slowly improving. 2. Fever, possible sepsis. 3. Leukocytosis. 4. Hypertension. 5. Hyperlipidemia. 6. Troponin elevated up to 0.066, indeterminate etiology. RECOMMENDATIONS: I recommend to continue current medications and symptomatic treatment. Otherwise, 2D echo has been requested. Closely follow with multiple consultants, empiric antibiotics, and I would also recommend consultation with Dr. Concepcion also from Infectious point of view. Prognosis guarded. Further recommendations to follow. MMODL / IJN: [id number] /
--- NOTE | 2022-09-28 14:44 | P.PN ---
Subjective Progress Note Date: 09/28/22 CHIEF COMPLAINT: Pancreatitis HISTORY OF PRESENT ILLNESS: Patient continues to have epigastric abdominal pain. He rates his pain 7-1/2 out of 10. Pain was 8 out of 10 yesterday. He is having diarrhea. Had a low-grade temp of 100.5 last night also been tachycardic. He was seen evaluated by cardiology regarding elevated troponins. Currently on a clear liquid diet. No nausea or vomiting. WBC is down from 11- 4.98 hemoglobin 14 platelets 248 sodium 136 potassium 3.7 creatinine 0.9 LFTs are normal and lipase is 34 Repeat computed tomography scan abdomen and pelvis due to continuous abdominal pain shows acute pancreatitis remains present though proved from 3 days earlier. There is new enterocolitis and/or diarrhea on the current study. New ileus suspected. Prominent fluid-filled loops extends to the colon making obstruction unlikely. Patient seen and examined with Dr. hankins PHYSICAL EXAM: VITAL SIGNS: Reviewed. GENERAL: Well-developed in no acute distress. HEENT: No sclera icterus. Extraocular movements grossly intact. Moist buccal mucosa. Head is atraumatic, normocephalic. ABDOMEN: Mildly distended. Epigastric tenderness. NEUROLOGIC: Alert and oriented. Cranial nerves II through XII grossly intact. ASSESSMENT: 1. Acute pancreatitis exact etiology unclear. Computed tomography scan abdomen and pelvis shows improving pancreatitis 2. Enterocolitis with diarrhea on computed tomography scan 3. Possible ileus PLAN: -Continue clear liquid diet -Continue IV fluids -Continue pain management -Continue supportive care -Encouraged patient to ambulate Physician Wing Scorer note has been reviewed by physician. Signing provider agrees with the documented findings, assessment, and plan of care. Objective - Vital Signs Vital signs: Vital Signs Temp 97.9 F 09/28/22 11:07 Pulse 86 09/28/22 11:07 Resp 20 09/28/22 11:07 BP 144/97 09/28/22 11:07 Pulse Ox 99 09/28/22 11:07 FiO2 Intake & Output 09/27/22 09/28/22 09/28/22 18:59 06:59 18:59 Intake Total 1660 2630 Balance 1660 2630 Intake: Intake, IV Titration 1660 1530 Amount Meropenem 2 gm In Sodium 100 100 Chloride 0.9% 100 ml @ 33 .3 mls/hr IVPB Q8HR [facility] Rx#:[id number] Sodium Chloride 0.9% 1, 1560 1430 000 ml @ 130 mls/hr IV . Q7H42M [facility] Rx#:[id number] Oral 1100 Other: Voiding Method Toilet Toilet # Voids 2 - Labs CBC & Chem 7: 09/28/22 05:47 09/28/22 05:47 Labs: Abnormal Lab Results - Last 24 Hours (Table) 09/27/22 09/27/22 09/28/22 Range/Units 16:34 19:49 05:47 Monocytes # 1.26 H (0.20-1.00) X 10*3/uL Calcium (8.7-10.3) mg/dL Troponin I 0.066 H* 0.063 H* (0.000-0.034) ng/mL Total Protein (6.2-8.2) g/dL Albumin (3.8-4.9) g/dL 09/28/22 Range/Units 05:47 Monocytes # (0.20-1.00) X 10*3/uL Calcium 8.4 L (8.7-10.3) mg/dL Troponin I (0.000-0.034) ng/mL Total Protein 5.3 L (6.2-8.2) g/dL Albumin 3.5 L (3.8-4.9) g/dL
[2022-09-28] MEDS: LOSARTAN 50 MG TAB PO SCH (20:44)
[2022-09-28] MEDS: ATORVASTATIN 20 MG TAB PO SCH (20:45)
[2022-09-29] MEDS: HYDROmorphone 1 MG/ML 1 ML SYRINGE IVP PRN ×7 (01:19→23:13)
[2022-09-29] MEDS: DEXTROAMPHETAMINE PO SCH (08:18)
[2022-09-29] MEDS: AMPHETAMINE PO SCH (08:18)
[2022-09-29] MEDS: SODIUM CHLORIDE 0.9% 1,000 ML IV SCH ×3 (08:33→20:37)
[2022-09-29] MEDS: MEROPENEM 2 GM in SODIUM CHLORIDE 0.9% 100 ML IVPB SCH ×3 (08:33→23:14)
[2022-09-29] MEDS: PANTOPRAZOLE 40 MG/10 ML VIAL IV SCH (08:33)
--- NOTE | 2022-09-29 09:16 | P.PN ---
Subjective Progress Note Date: 09/29/22 History of present illness: This is a 46-year-old male patient but does not see a coater helper. He denies any cardiac history. He does have past medical history of hypertension, hyperlipidemia, gastroesophageal reflux disease. Patient presented to the hospital on 09/25 with abdominal pain and has been diagnosed with acute pancreatitis and followed by general surgery. Patient has had improvement of h is pancreatic enzymes. Patient states his pain is on the lower right rib area and epigastric area. He is complaining of some pain across the upper abdomen bilaterally. No chest pain. He denies shortness of breath, lightheadedness or dizziness, denies palpitations. EKG sinus rhythm with nonspecific ST changes Troponins 0.065, 0.066 and 0.063. Most recent lipase 88. WBC 11.3, hemoglobin 15. Electrolytes within normal limits and creatinine 1.1. quality assurance monitor has been a sinus rhythm 09/29 Patient states that he is still not feeling well with continued abdominal pain. He is able to tolerate clear liquids but feels a little nauseated. He denies having any chest pain, shortness of breath. Echocardiogram is pending. Physical examination: Gen: This is a 46-year-old male. He is resting in bed and appears to be comfortable VS: reviewed HEENT: Head is atraumatic, normocephalic. Pupils equal, round. Sclerae is anicteric. NECK: Supple. No JVD. LUNGS: Clear to auscultation. No wheezes or rhonchi. No intercostal retractions. HEART: Regular rate and rhythm. No murmur. ABDOMEN: Soft. No masses. Generalized upper quadrant tenderness most significant at the epigastric and right rib border. EXTREMITIES: No pedal edema. No calf tenderness. NEUROLOGICAL: Patient is awake, alert and oriented x3. Assessment: Acute pancreatitis Abdominal pain Mildly elevated troponins, flat, not indicative of ischemia Hypertension Hyperlipidemia Plan: Acute coronary syndrome has been ruled out Obtain 2-D echocardiogram and Doppler study to assess cardiac structure and function, pending Patient may have outpatient cardiac workup once his acute illness is resolved Further recommendations to follow based upon clinical course Thank you kindly for this consultation. Nurse practitioner note has been reviewed, I agree with documented findings and plan of care. Patient was seen and examined. Objective - Vital Signs Vital signs: Vital Signs Temp 98.2 F 09/29/22 05:00 Pulse 78 09/29/22 05:00 Resp 16 09/29/22 05:00 BP 170/93 09/29/22 05:00 Pulse Ox 94 L 09/29/22 05:00 FiO2 Intake & Output 09/28/22 09/29/22 09/29/22 18:59 06:59 18:59 Intake Total 1660 1460 Balance 1660 1460 Intake: Intake, IV Titration 1660 1100 Amount Meropenem 2 gm In Sodium 100 100 Chloride 0.9% 100 ml @ 33 .3 mls/hr IVPB Q8HR [facility] Rx#:[id number] Sodium Chloride 0.9% 1, 1560 1000 000 ml @ 130 mls/hr IV . Q7H42M [facility] Rx#:[id number] Oral 360 Other: Voiding Method Toilet # Voids 4 2 - Labs CBC & Chem 7: 09/28/22 05:47 09/28/22 05:47 Labs: Abnormal Lab Results - Last 24 Hours (Table) 09/28/22 09/28/22 Range/Units 05:47 05:47 Monocytes # 1.26 H (0.20-1.00) X 10*3/uL Calcium 8.4 L (8.7-10.3) mg/dL Total Protein 5.3 L (6.2-8.2) g/dL Albumin 3.5 L (3.8-4.9) g/dL Microbiology - Last 24 Hours (Table) 09/27/22 13:03 Blood Culture - Preliminary Blood No Growth after 24 hours
[2022-09-29 09:46] LABS: Basophils # (A) 0.04 X 10*3/uL (0.00-0.10); Basophils % (A) 0.5 %; Eosinophils # (A) 0.25 X 10*3/uL (0.04-0.35); Eosinophils % (A) 3.1 %; HCT 40.4 % (39.6-50.0); HGB 14.2 g/dL (13.0-17.0); Lymphocytes # (A) 1.82 X 10*3/uL (0.90-5.00); Lymphocytes % (A) 22.9 %; MCH 32.1 pg (27.0-32.0); MCHC 35.1 g/dL (32.0-37.0); MCV 91.2 fL (80.0-97.0); Mean Platelet Volume 9.4 fL (9.5-12.2); Monocytes # (A) 1.18 X 10*3/uL (0.20-1.00); Monocytes % (A) 14.8 %; NRBC Per 100 WBC 0 /100 WBCS (0.0-0.0); Neutrophils # (A) 4.59 X 10*3/uL (1.80-7.70); Neutrophils % (A) 57.7 %; Platelet Count 286 X 10*3/uL (140-440); RBC 4.43 X 10*6/uL (4.40-5.60); RDW 12.2 % (11.5-14.5); WBC 7.96 X 10*3/uL (4.50-10.00)
[2022-09-29 11:15] VITALS: BMI 36.6
[2022-09-29 12:17] LABS: C Reactive Protein 13.3 mg/dL (0.00-0.80)
[2022-09-29 12:31] LABS: African American GFR (CKD) 118.8 (60.0-200.0); Albumin 3.4 g/dL (3.8-4.9); Albumin/Globulin Ratio 1.58 (1.60-3.17); Anion Gap 12.5 mmol/L (10.00-18.00); BUN/Creat Ratio 12.57 Ratio (12.00-20.00); Blood Urea Nitrogen 11.2 mg/dL (9.0-27.0); Calcium 8.3 mg/dL (8.7-10.3); Globulin 2.1 g/dL (1.6-3.3); Non-African American GFR(CKD) 102.5 (60.0-200.0); Potassium 3.5 mmol/L (3.5-5.5); Total Bilirubin 0.5 mg/dL (0.30-1.20); Total Protein 5.5 g/dL (6.2-8.2)
--- NOTE | 2022-09-29 14:56 | P.PN ---
Subjective Progress Note Date: 09/29/22 This is a 46-year-old male who was recently admitted with abdominal pain and found to have acute pancreatitis. Patient is being closely monitored with infectious disease and other consultations following as patient continues to have fevers and continued abdominal pain. Troponins were mildly elevated and cardiology evaluating the patient. We'll continue with empiric anabiotic's and continue gentle IV hydration. Patient with abdominal pain has been continued on clear liquids. Patient is afebrile today and continues with pain although denies chest pain or shortness of breath. Patient is also having bowel movements and voiding with no difficulties. Encouraged increase activity as tolerated and will continue with pain management. Will follow-up with repeat labs of amylase lipase and BMP. Review of systems: Constitutional: No reports of fatigue, fever, or chills Cardiovascular: No reports of chest pain or palpitations Respiratory: No reports of shortness of breath or cough GI: No reports of nausea, vomiting, or diarrhea, reports continued abdominal pain and cramping : No reports of dysuria or retention Neurovascular: No reports of weakness or numbness All medications have been reviewed PHYSICAL EXAMINATION: GENERAL: The patient is alert and oriented x4, Well developed, well nourished. HEENT: Pupils are round and equally reacting to light. EOMI. no scleral icterus. No conjunctival pallor. Normocephalic, atraumatic. No pharyngeal erythema. No thyromegaly. CARDIOVASCULAR: S1 and S2 muffled PULMONARY: diminished breath sounds bilaterally with no wheezing or rhonchi noted. ABDOMEN: soft. Nontender on exam. obese. non-distended, normoactive bowel sounds. No palpable organomegaly. MUSCULOSKELETAL: No joint swelling or deformity. EXTREMITIES: No cyanosis, clubbing, or pedal edema. NEUROLOGICAL: Gross neurological examination did not reveal any focal deficits. Diffuse weakness SKIN: No rashes. Assessment: Acute severe pancreatitis, slowly improving Fever, possible sepsis secondary to above Leukocytosis hypertension Hyperlipidemia Troponin elevated up to 0.066 with indeterminate etiology GI prophylaxis DVT prophylaxis Full code Plan: Recommend to continue with current medications and management of multiple medical consultations following. Patient was started on antibiotics and ID consulted and following. Recommend follow-up with repeat labs in the a.m. and monitor amylase and lipase along with a CBC and BMP. Encouraged increase activity as tolerated. Patient is continued on clear liquids for now due to abdominal pain with general surgery following. CT abdomen was noted per surgery. Patient is afebrile today and recommend continue monitoring vitals closely. Cardiology following as well and 2-D echo was ordered and pending. Patient will need outpatient cardiac follow-up for further workup once this acute illness is resolved. Due to multiple complex medical issues, prognosis is guarded. The impression and plan of care has been dictated by Sri Bartlett, nurse practitioner as directed. Dr. Ghulam MD I have performed a history and examination and MDM of this patient, discussed the same with the dictator, and agree with the dictator's assessment and plan as written ,documented as a scribe. Based on total visit time, I have performed more than 50% of the visit. Any additional findings or plans will be noted. Objective - Vital Signs Vital signs: Vital Signs Temp 98.6 F 09/29/22 12:19 Pulse 89 09/29/22 12:19 Resp 16 09/29/22 12:19 BP 140/95 09/29/22 12:19 Pulse Ox 96 09/29/22 12:19 FiO2 Intake & Output 09/28/22 09/29/22 09/29/22 18:59 06:59 18:59 Intake Total 1660 1460 Balance 1660 1460 Weight 126.099 kg Intake: Intake, IV Titration 1660 1100 Amount Meropenem 2 gm In Sodium 100 100 Chloride 0.9% 100 ml @ 33 .3 mls/hr IVPB Q8HR [facility] Rx#:[id number] Sodium Chloride 0.9% 1, 1560 1000 000 ml @ 130 mls/hr IV . Q7H42M [facility] Rx#:[id number] Oral 360 Other: Voiding Method Toilet # Voids 4 2 - Labs CBC & Chem 7: 09/29/22 05:33 09/29/22 05:33 Labs: Abnormal Lab Results - Last 24 Hours (Table) 09/29/22 09/29/22 09/29/22 Range/Units 05:33 05:33 05:33 MCH 32.1 H (27.0-32.0) pg MPV 9.4 L (9.5-12.2) fL Immature Gran # 0.08 H (0.00-0.04) X 10*3/uL Monocytes # 1.18 H (0.20-1.00) X 10*3/uL Calcium 8.3 L (8.7-10.3) mg/dL AST 61 H (14-35) U/L ALT 74 H (10-49) U/L C-Reactive Protein 13.30 H (0.00-0.80) mg/dL Total Protein 5.5 L (6.2-8.2) g/dL Albumin 3.4 L (3.8-4.9) g/dL Albumin/Globulin Ratio 1.58 L (1.60-3.17) g/dL Lipase 76 H (14-60) U/L Procalcitonin 0.29 H (0.02-0.09) ng/mL Microbiology - Last 24 Hours (Table) 09/27/22 13:03 Blood Culture - Preliminary Blood No Growth after 24 hours
--- NOTE | 2022-09-29 16:29 | P.PN ---
Subjective Progress Note Date: 09/29/22 CHIEF COMPLAINT: Pancreatitis HISTORY OF PRESENT ILLNESS: Patient continues to have epigastric and right upper quadrant abdominal pain. He rates his pain 7-1/2 out of 10. Patient reports his pain was worse yesterday after the CAT scan contrast. He is having diarrhea. Denies any nausea or vomiting. Afebrile WBC 7.96 Hgb 14.2 platelets 286 signs 136 potassium 3.5 creatinine 0.9 total bili 0.5 AST 16 up to 61 ALT 38-74 lipase 76 Patient seen and examined with Dr. hankins PHYSICAL EXAM: VITAL SIGNS: Reviewed. GENERAL: Well-developed in no acute distress. HEENT: No sclera icterus. Extraocular movements grossly intact. Moist buccal mucosa. Head is atraumatic, normocephalic. ABDOMEN: Mildly distended. Epigastric and right upper quadrant tenderness. NEUROLOGIC: Alert and oriented. Cranial nerves II through XII grossly intact. ASSESSMENT: 1. Acute pancreatitis exact etiology unclear. Computed tomography scan abdomen and pelvis shows improving pancreatitis 2. Enterocolitis with diarrhea on computed tomography scan 3. Possible ileus PLAN: -Advance diet regular per Dr. Hankins. Patient educated to eat small amounts -HIDA scan ordered for further evaluation of right upper quadrant abdominal pain -Continue IV fluids -Continue pain management -Continue supportive care -Encouraged patient to ambulate Physician Vp Director Of Creative Strategy note has been reviewed by physician. Signing provider agrees with the documented findings, assessment, and plan of care. Objective - Vital Signs Vital signs: Vital Signs Temp 98.6 F 09/29/22 12:19 Pulse 89 09/29/22 12:19 Resp 16 09/29/22 12:19 BP 140/95 09/29/22 12:19 Pulse Ox 96 09/29/22 12:19 FiO2 Intake & Output 09/28/22 09/29/22 09/29/22 18:59 06:59 18:59 Intake Total 1660 1460 Balance 1660 1460 Weight 126.099 kg Intake: Intake, IV Titration 1660 1100 Amount Meropenem 2 gm In Sodium 100 100 Chloride 0.9% 100 ml @ 33 .3 mls/hr IVPB Q8HR [facility] Rx#:[id number] Sodium Chloride 0.9% 1, 1560 1000 000 ml @ 130 mls/hr IV . Q7H42M [facility] Rx#:[id number] Oral 360 Other: Voiding Method Toilet # Voids 4 2 - Labs CBC & Chem 7: 09/29/22 05:33 09/29/22 05:33 Labs: Abnormal Lab Results - Last 24 Hours (Table) 09/29/22 09/29/22 09/29/22 Range/Units 05:33 05:33 05:33 MCH 32.1 H (27.0-32.0) pg MPV 9.4 L (9.5-12.2) fL Immature Gran # 0.08 H (0.00-0.04) X 10*3/uL Monocytes # 1.18 H (0.20-1.00) X 10*3/uL Calcium 8.3 L (8.7-10.3) mg/dL AST 61 H (14-35) U/L ALT 74 H (10-49) U/L C-Reactive Protein 13.30 H (0.00-0.80) mg/dL Total Protein 5.5 L (6.2-8.2) g/dL Albumin 3.4 L (3.8-4.9) g/dL Albumin/Globulin Ratio 1.58 L (1.60-3.17) g/dL Lipase 76 H (14-60) U/L Procalcitonin 0.29 H (0.02-0.09) ng/mL Microbiology - Last 24 Hours (Table) 09/27/22 13:03 Blood Culture - Preliminary Blood No Growth after 48 hours
[2022-09-29] MEDS: ATORVASTATIN 20 MG TAB PO SCH (20:34)
[2022-09-29] MEDS: LOSARTAN 50 MG TAB PO SCH (20:34)
--- NOTE | 2022-09-29 23:14 | P.CONS ---
History of Present Illness - Reason for Consult Consult date: 09/28/22 sepsis Requesting physician: Bossman Parmar - Chief Complaint Abdominal pain x few days - History of Present Illness Patient is a 46-year-old male presenting to the hospital 3 days ago on 09/25/2022 for evaluation of abdominal pain patient symptoms started few hours before presentation to the hospital and has been progressively getting worse pain is mostly in the epigastric area describing it to be sharp almost 10 out of 10 associated nausea but no vomiting patient on presentation to the hospital was afebrile he did spike low-grade fever 100.5 last night patient did have elevated white count of 17.7 on admission that has normalized this morning to 4.98 kidney function normal troponin was elevated liver enzymes are normal patient did have elevated amylase that has subsequently normalized lipase was also elevated more than 20,000 however is down to 34 today patient did have a CT abdominal pelvis on admission findings compatible with acute pancreatitis he did have a ultrasound of the gallbladder no evidence for cholelithiasis patient was started on meropenem 2 g every 8 hours as of yesterday infectious disease was consulted for further management of antibiotic therapy patient did have a repeat CT abdominal pelvis completed this afternoon today shows overall improvement in the pancreatitis and new enterocolitis or diarrhea on the current study, patient mentioned his abdominal pain was getting better however seem to be slightly worse after he drink the contrast for the CT has been complaining of dry feelings abdominal pain is mostly sharp 7- 8 out of 10 and no radiation did have some diarrhea but no blood or mucus in the stool Review of Systems Positive point has been mentioned in the HPI rest of the systems are negative Past Medical History Past Medical History: GERD/Reflux, Hyperlipidemia, Hypertension History of Any Multi-Drug Resistant Organisms: None Reported Past Surgical History: No Surgical Hx Reported Past Anesthesia/Blood Transfusion Reactions: No Reported Reaction Smoking Status: Never smoker - Past Family History Mother Family Medical History: Diabetes Mellitus Father Additional Family Medical History / Comment(s): mental illness Medications and Allergies Home Medications Medication Instructions Recorded Confirmed Type Atorvastatin [Lipitor] 20 mg PO HS 09/25/22 09/25/22 History Dextroamphetamine/Amphetamine 15 mg PO DAILY 09/25/22 09/25/22 History [Adderall Xr 15 mg Capsule] Losartan Potassium 100 mg PO HS 09/25/22 09/25/22 History Zolpidem [Ambien] 10 mg PO HS 09/25/22 09/25/22 History HYDROcodone/APAP 5-325MG [[place] 1 tab PO Q6HR PRN #6 tab 09/27/22 Rx 5-325] Pantoprazole Sodium [Protonix] 40 mg PO DAILY #30 tab 09/27/22 Rx Amoxic-Pot Clav 875-125Mg 1 tab PO BID 7 Days #14 tab 10/05/22 Rx [Augmentin 875-125] Ibuprofen [Motrin] 600 mg PO Q8HR PRN #30 tab 10/05/22 Rx amLODIPine [Norvasc] 5 mg PO DAILY 30 Days #30 tab 10/05/22 Rx Allergies Allergy/AdvReac Type Severity Reaction Status Date / Time No Known Allergies Allergy Verified 09/25/22 13:17 Physical Exam Vitals: Vital Signs Temp Pulse Resp BP Pulse Ox 09/28/22 11:07 97.9 F 86 20 144/97 99 09/28/22 04:07 99.1 F 98 20 138/88 97 09/27/22 20:14 100.0 F H 98 09/27/22 19:07 100.5 F H 114 H 20 133/86 96 Intake and Output 09/27/22 09/28/22 09/28/22 22:59 06:59 14:59 Intake Total 1900 2390 Balance 1900 2390 Intake: Intake, IV Titration 1660 1530 Amount Meropenem 2 gm In Sodium 100 100 Chloride 0.9% 100 ml @ 33 .3 mls/hr IVPB Q8HR [facility] Rx#:[id number] Sodium Chloride 0.9% 1, 1560 1430 000 ml @ 130 mls/hr IV . Q7H42M [facility] Rx#:[id number] Oral 240 860 Other: Voiding Method Toilet # Voids 2 GENERAL DESCRIPTION: Middle-aged male lying in bed, no distress. No tachypnea or accessory muscle of respiration use. HEENT: Shows Pallor , no scleral icterus. Oral mucous membrane is dry. No pharyngeal erythema or thrush NECK: Trachea central, no thyromegaly. LUNGS: Unlabored breathing. Clear to auscultation anteriorly. No wheeze or crackle. HEART: S1, S2, regular rate and rhythm. No loud murmur ABDOMEN: Soft, mild distention and tenderness EXTREMITIES: No edema of feet. SKIN: No rash, no masses palpable. NEUROLOGICAL: The patient is awake, alert, oriented x3, mood and affect normal. Results CBC & Chem 7: 10/05/22 05:51 10/05/22 05:51 Labs: Abnormal Lab Results - Last 24 Hours (Table) 09/27/22 09/27/22 09/28/22 Range/Units 16:34 19:49 05:47 Monocytes # 1.26 H (0.20-1.00) X 10*3/uL Calcium (8.7-10.3) mg/dL Troponin I 0.066 H* 0.063 H* (0.000-0.034) ng/mL Total Protein (6.2-8.2) g/dL Albumin (3.8-4.9) g/dL 09/28/22 Range/Units 05:47 Monocytes # (0.20-1.00) X 10*3/uL Calcium 8.4 L (8.7-10.3) mg/dL Troponin I (0.000-0.034) ng/mL Total Protein 5.3 L (6.2-8.2) g/dL Albumin 3.5 L (3.8-4.9) g/dL Assessment and Plan (1) Pancreatitis Status: Acute Code(s): K85.90 - ACUTE PANCREATITIS WITHOUT NECROSIS OR INFECTION, UNSP SNOMED Code(s): 72851244 Plan: 1patient presented to hospital abdominal pain has been diagnosed with acute pancreatitis ultrasound did not show evidence of gallstones and patient did have normal triglyceride levels did have a low-grade fever however repeat CT did not show any evidence of worsening liver improvement and no evidence of any panc reatic pseudocyst or necrotizing infection role of antibiotics remains to be questionable in cases of acute pancreatitis however in view of overall improvement may continue already for his condition to stabilize. 2-We will follow on clinical condition and cultures to further adjust medication if needed Thank you for this consultation will follow this patient along with you Time with Patient: Greater than 30
--- NOTE | 2022-09-29 23:17 | P.PN ---
Subjective Progress Note Date: 09/29/22 Principal diagnosis: Pancreatitis Patient is a 46-year-old male presenting to the hospital with acute abdominal pain has been diagnosed with acute pancreatitis subsequently did have a low-grade fever patient did have elevated white count admission subsequently normalized and repeat CAT scan did show improvement in his pancreatitis and no evidence of any necrosis or pseudocyst formation. On today's evaluation that is 09/29/2022, the patient has been afebrile for more than 24 hours, the patient is feeling slightly better abdominal pain slightly decreased intensity some nausea but no vomiting no chest pain shortness of breath or cough Objective - Vital Signs Vital signs: Vital Signs Temp 98.6 F 09/29/22 12:19 Pulse 89 09/29/22 12:19 Resp 16 09/29/22 12:19 BP 140/95 09/29/22 12:19 Pulse Ox 96 09/29/22 12:19 FiO2 Intake & Output 09/28/22 09/29/22 09/29/22 18:59 06:59 18:59 Intake Total 1660 1460 Balance 1660 1460 Weight 126.099 kg Intake: Intake, IV Titration 1660 1100 Amount Meropenem 2 gm In Sodium 100 100 Chloride 0.9% 100 ml @ 33 .3 mls/hr IVPB Q8HR [facility] Rx#:[id number] Sodium Chloride 0.9% 1, 1560 1000 000 ml @ 130 mls/hr IV . Q7H42M [facility] Rx#:[id number] Oral 360 Other: Voiding Method Toilet # Voids 4 2 - Exam GENERAL DESCRIPTION: Middle-aged male lying in bed, no distress. No tachypnea or accessory muscle of respiration use. LUNGS: Unlabored breathing. Clear to auscultation anteriorly. No wheeze or crackle. HEART: S1, S2, regular rate and rhythm. No loud murmur ABDOMEN: Soft, mild epigastric EXTREMITIES: No edema of feet. - Labs CBC & Chem 7: 09/29/22 05:33 09/29/22 05:33 Labs: Abnormal Lab Results - Last 24 Hours (Table) 09/29/22 09/29/22 09/29/22 Range/Units 05:33 05:33 05:33 MCH 32.1 H (27.0-32.0) pg MPV 9.4 L (9.5-12.2) fL Immature Gran # 0.08 H (0.00-0.04) X 10*3/uL Monocytes # 1.18 H (0.20-1.00) X 10*3/uL Calcium 8.3 L (8.7-10.3) mg/dL AST 61 H (14-35) U/L ALT 74 H (10-49) U/L C-Reactive Protein 13.30 H (0.00-0.80) mg/dL Total Protein 5.5 L (6.2-8.2) g/dL Albumin 3.4 L (3.8-4.9) g/dL Albumin/Globulin Ratio 1.58 L (1.60-3.17) g/dL Lipase 76 H (14-60) U/L Procalcitonin 0.29 H (0.02-0.09) ng/mL Microbiology - Last 24 Hours (Table) 09/27/22 13:03 Blood Culture - Preliminary Blood No Growth after 24 hours Assessment and Plan (1) Pancreatitis Current Visit: Yes Status: Acute Code(s): K85.90 - ACUTE PANCREATITIS WITHOUT NECROSIS OR INFECTION, UNSP SNOMED Code(s): 50758330 Plan: 1patient presented to hospital abdominal pain has been diagnosed with acute pancreatitis ultrasound did not show evidence of gallstones and patient did have normal triglyceride levels did have a low-grade fever however repeat CT did not show any evidence of worsening liver improvement and no evidence of any pancreatic pseudocyst or necrotizing infection role of antibiotics remains to be questionable in cases of acute pancreatitis 2 The patient fever has resolved white count has normalized blood culture negative so far we will cut back the meropenem to 1 g every 8 hours advise continuing bowel rest and close follow-up Time with Patient: Less than 30
[2022-09-29] MEDS: MEROPENEM 1 GM in SODIUM CHLORIDE 0.9% 100 ML IVPB SCH (23:25)
[2022-09-30] MEDS: HYDROmorphone 1 MG/ML 1 ML SYRINGE IVP PRN ×4 (02:46→20:54)
[2022-09-30] MEDS: SODIUM CHLORIDE 0.9% 1,000 ML IV SCH ×2 (04:55→16:16)
[2022-09-30 08:58] LABS: Basophils # (A) 0.06 X 10*3/uL (0.00-0.10); Basophils % (A) 0.4 %; Eosinophils # (A) 0.16 X 10*3/uL (0.04-0.35); Eosinophils % (A) 1.2 %; HCT 39.3 % (39.6-50.0); HGB 13.9 g/dL (13.0-17.0); Immature Grans, Automated 2.1 %; Lymphocytes # (A) 1.65 X 10*3/uL (0.90-5.00); Lymphocytes % (A) 12.2 %; MCH 31.5 pg (27.0-32.0); MCHC 35.4 g/dL (32.0-37.0); MCV 89.1 fL (80.0-97.0); Mean Platelet Volume 9.5 fL (9.5-12.2); Monocytes # (A) 1.41 X 10*3/uL (0.20-1.00); Monocytes % (A) 10.4 %; NRBC Per 100 WBC 0 /100 WBCS (0.0-0.0); Neutrophils # (A) 9.99 X 10*3/uL (1.80-7.70); Neutrophils % (A) 73.7 %; Platelet Count 320 X 10*3/uL (140-440); RBC 4.41 X 10*6/uL (4.40-5.60); RDW 12.1 % (11.5-14.5); WBC 13.55 X 10*3/uL (4.50-10.00)
[2022-09-30 09:15] LABS: African American GFR (CKD) 118.3 (60.0-200.0); Albumin 3.5 g/dL (3.8-4.9); Albumin/Globulin Ratio 1.67 (1.60-3.17); BUN/Creat Ratio 7.89 Ratio (12.00-20.00); Blood Urea Nitrogen 7.1 mg/dL (9.0-27.0); Calcium 8.8 mg/dL (8.7-10.3); Globulin 2.1 g/dL (1.6-3.3); Non-African American GFR(CKD) 102.1 (60.0-200.0); Potassium 3.3 mmol/L (3.5-5.5); Total Bilirubin 0.7 mg/dL (0.30-1.20); Total Protein 5.6 g/dL (6.2-8.2)
[2022-09-30] MEDS: MEROPENEM 1 GM in SODIUM CHLORIDE 0.9% 100 ML IVPB SCH ×3 (10:18→23:15)
--- NOTE | 2022-09-30 10:24 | CA ---
Transthoracic Echo Report Name: Ed Shi Age: 46 Gender: M : 1975 Exam Date: 09/30/2022 09:01 Exam Location: [facility] Ht (in): 72 Wt (lb): 275 Ordering Physician: Bossman Parmar MD Attending/Referring Phys: [place] Marina Malave RDCS Procedure CPT: Indications: tachycardia Cardiac Hx: Technical Quality: Contrast 1: Total Dose (mL): Contrast 2: Total Dose (mL): MEASUREMENTS (Male / Female) Normal Values 2D ECHO LV Diastolic Diameter PLAX 4.7 cm 4.2 - 5.9 / 3.9 - 5.3 cm LV Systolic Diameter PLAX 3.4 cm IVS Diastolic Thickness 1.2 cm 0.6 - 1.0 / 0.6 - 0.9 cm LVPW Diastolic Thickness 1.5 cm 0.6 - 1.0 / 0.6 - 0.9 cm LV Relative Wall Thickness 0.6 RV Internal Dim ED PLAX 3.9 cm LA Systolic Diameter LX 4.2 cm 3.0 - 4.0 / 2.7 - 3.8 cm M-MODE Aortic Root Diameter MM 3.4 cm LA Systolic Diameter MM 3.9 cm LA Ao Ratio MM 1.2 MV E Point Septal Separation 0.7 cm AV Cusp Separation MM 2.7 cm DOPPLER MV Area PHT 3.3 cm??? Mitral E Point Velocity 74.6 cm/s Mitral A Point Velocity 65.6 cm/s Mitral E to A Ratio 1.1 MV Deceleration Time 227.1 ms MV E' Velocity 5.7 cm/s Mitral E to MV E' Ratio 13.1 TR Peak Velocity 280.6 cm/s TR Peak Gradient 31.5 mmHg Right Ventricular Systolic Press 36.5 mmHg FINDINGS Left Ventricle Mildly increased septal wall thickness. Left ventricular cavity size normal. Left ventricular ejection fraction is estimated at 55 %. Right Ventricle Right ventricular dilatation. Mild pulmonary hypertension. Right ventricular systolic pressure estimated at 37 mm hg. Right Atrium Normal right atrial size. Left Atrium Mildly increased left atrial diameter. Mitral Valve Structurally normal mitral valve. Mild mitral regurgitation. Aortic Valve Trileaflet aortic valve. Tricuspid Valve Structurally normal tricuspid valve. Mild tricuspid regurgitation. Pulmonic Valve Structurally normal pulmonic valve. Pericardium Echo free space anterior to the right ventricle likely represents a fat pad. Aorta Normal size aortic root and proximal ascending aorta. CONCLUSIONS Normal LV systolic function Mild mitral regurgitation Previewed by: Dr. Sánchez Adames MD (Electronically Signed) Final Date: 30 September 2022 10:23
[2022-09-30] MEDS: PANTOPRAZOLE 40 MG/10 ML VIAL IV SCH (11:22)
[2022-09-30] MEDS: AMPHETAMINE PO SCH (11:27)
[2022-09-30] MEDS: DEXTROAMPHETAMINE PO SCH (11:27)
--- NOTE | 2022-09-30 11:55 | P.PN ---
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 He denies any cardiac history. He does have past medical history of hypertension, hyperlipidemia, gastroesophageal reflux disease. Patient presented to the hospital on 09/25 with abdominal pain and has been diagnosed with acute pancreatitis and followed by general surgery. Patient has had improvement of h is pancreatic enzymes. Patient states his pain is on the lower right rib area and epigastric area. He is complaining of some pain across the upper abdomen bilaterally. No chest pain. He denies shortness of breath, lightheadedness or dizziness, denies palpitations. EKG sinus rhythm with nonspecific ST changes Troponins 0.065, 0.066 and 0.063. Most recent lipase 88. WBC 11.3, hemoglobin 15. Electrolytes within normal limits and creatinine 1.1. 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 He is able to tolerate clear liquids but feels a little nauseated. He denies having any chest pain, shortness of breath. Echocardiogram is pending. 09/30 Echocardiogram reveals normal LV systolic function, mild mitral regurgitation. Patient has been updated regarding results. He continues to have significant abdominal pain. No chest pain. Physical examination: Gen: This is a 46-year-old male. He is resting in bed and appears to be comfortable VS: reviewed HEENT: Head is atraumatic, normocephalic. Pupils equal, round. Sclerae is anicteric. NECK: Supple. No JVD. LUNGS: Clear to auscultation. No wheezes or rhonchi. No intercostal retractions. HEART: Regular rate and rhythm. No murmur. ABDOMEN: Soft. No masses. Generalized upper quadrant tenderness most significant at the epigastric and right rib border. EXTREMITIES: No pedal edema. No calf tenderness. NEUROLOGICAL: Patient is awake, alert and oriented x3. Assessment: Acute pancreatitis Abdominal pain Mildly elevated troponins, flat, not indicative of ischemia Hypertension Hyperlipidemia Plan: Acute coronary syndrome has been ruled out Cardiology we'll sign off and patient will be followed on an as-needed basis. Please reconsult if any new concerns. Thank you kindly for this consultation. Nurse practitioner note has been reviewed, I agree with documented findings and plan of care. Patient was seen and examined. Objective - Vital Signs Vital signs: Vital Signs Temp 98.6 F 09/30/22 04:04 Pulse 94 09/30/22 04:04 Resp 16 09/30/22 04:04 BP 137/85 09/30/22 04:04 Pulse Ox 95 09/30/22 04:04 FiO2 Intake & Output 09/29/22 09/30/22 09/30/22 18:59 06:59 18:59 Intake Total 1660 222 Balance 1660 222 Weight 126.099 kg Intake: Intake, IV Titration 1660 Amount Meropenem 2 gm In Sodium 100 Chloride 0.9% 100 ml @ 33 .3 mls/hr IVPB Q8HR [facility] Rx#:[id number] Sodium Chloride 0.9% 1, 1560 000 ml @ 130 mls/hr IV . Q7H42M [facility] Rx#:[id number] Oral 222 Other: Voiding Method Toilet # Voids 3 - Labs CBC & Chem 7: 09/30/22 05:54 09/30/22 05:54 Labs: Abnormal Lab Results - Last 24 Hours (Table) 09/29/22 09/29/22 09/29/22 Range/Units 05:33 05:33 05:33 MCH 32.1 H (27.0-32.0) pg MPV 9.4 L (9.5-12.2) fL Immature Gran # 0.08 H (0.00-0.04) X 10*3/uL Monocytes # 1.18 H (0.20-1.00) X 10*3/uL Calcium 8.3 L (8.7-10.3) mg/dL AST 61 H (14-35) U/L ALT 74 H (10-49) U/L C-Reactive Protein 13.30 H (0.00-0.80) mg/dL Total Protein 5.5 L (6.2-8.2) g/dL Albumin 3.4 L (3.8-4.9) g/dL Albumin/Globulin Ratio 1.58 L (1.60-3.17) g/dL Lipase 76 H (14-60) U/L Procalcitonin 0.29 H (0.02-0.09) ng/mL Microbiology - Last 24 Hours (Table) 09/27/22 13:03 Blood Culture - Preliminary Blood No Growth after 48 hours
--- NOTE | 2022-09-30 14:09 | NM ---
Nuclear medicine hepatobiliary scan. HISTORY: Pain. DOSAGE: The patient received ensure plus and 4.9 mCi of Technetium 99m Choletec. FINDINGS: There is normal hepatic extraction. The gallbladder is seen at 90 minutes. There is bilia ry to bowel clearance by 40 minutes. Ejection fraction could not be obtained due to the lack of upta ke within the gallbladder. IMPRESSION: 1. Nonvisualization of the gallbladder 90 minutes suggestive of cholecystitis.
[2022-09-30] MEDS ORDERED: POTASSIUM CHLORIDE ER 20 MEQ TAB.ER PO STA (14:27)
--- NOTE | 2022-09-30 14:30 | P.PN ---
Subjective Progress Note Date: 09/30/22 CHIEF COMPLAINT: Pancreatitis HISTORY OF PRESENT ILLNESS: Patient continues to have epigastric and right upper quadrant abdominal pain. Patient's pain is worse after eating. He did undergo a trial of regular diet yesterday. Denies any nausea or vomiting. Pain medication is helping. Afebrile. WBC is 13.5 Hgb 13.9 platelets of 320 sodium 135 potassium 3.3 creatinine 0.9 total bili 0.7 AST is 51 ALT 91 alk phos 99 lipase is 115 HIDA scan nonvisualization of the gallbladder 90 minutes suggestive cholecystitis Patient seen and examined with Dr. hankins PHYSICAL EXAM: VITAL SIGNS: Reviewed. GENERAL: Well-developed in no acute distress. HEENT: No sclera icterus. Extraocular movements grossly intact. Moist buccal mucosa. Head is atraumatic, normocephalic. ABDOMEN: Mildly distended. Epigastric and right upper quadrant tenderness. NEUROLOGIC: Alert and oriented. Cranial nerves II through XII grossly intact. ASSESSMENT: 1. Acute pancreatitis exact etiology unclear. Computed tomography scan abdomen and pelvis shows improving pancreatitis 2. Enterocolitis with diarrhea on computed tomography scan 3. Cholecystitis. Gallbladder not visualized on HIDA 4. Hypokalemia PLAN: -Patient will eventually need laparoscopic cholecystectomy after pancreatitis has resolved -Continue antibiotics -Downgrade diet to clear liquids -Continue IV fluids -Continue pain management -Continue supportive care -Encouraged patient to ambulate -Repeat labs in a.m. -Replace potassium Physician Research Staff Member note has been reviewed by physician. Signing provider agrees with the documented findings, assessment, and plan of care. Objective - Vital Signs Vital signs: Vital Signs Temp 98.3 F 09/30/22 12:31 Pulse 84 09/30/22 12:31 Resp 16 09/30/22 12:31 BP 151/99 09/30/22 12:31 Pulse Ox 97 09/30/22 12:31 FiO2 Intake & Output 09/29/22 09/30/22 09/30/22 18:59 06:59 18:59 Intake Total 1660 222 Balance 1660 222 Weight 126.099 kg Intake: Intake, IV Titration 1660 Amount Meropenem 2 gm In Sodium 100 Chloride 0.9% 100 ml @ 33 .3 mls/hr IVPB Q8HR [facility] Rx#:[id number] Sodium Chloride 0.9% 1, 1560 000 ml @ 130 mls/hr IV . Q7H42M [facility] Rx#:[id number] Oral 222 Other: Voiding Method Toilet # Voids 3 - Labs CBC & Chem 7: 09/30/22 05:54 09/30/22 05:54 Labs: Abnormal Lab Results - Last 24 Hours (Table) 09/30/22 09/30/22 Range/Units 05:54 05:54 WBC 13.55 H (4.50-10.00) X 10*3/uL Hct 39.3 L (39.6-50.0) % Immature Gran # 0.28 H (0.00-0.04) X 10*3/uL Neutrophils # 9.99 H (1.80-7.70) X 10*3/uL Monocytes # 1.41 H (0.20-1.00) X 10*3/uL Potassium 3.3 L (3.5-5.5) mmol/L Carbon Dioxide 28.0 H (20.0-27.5) mmol/L BUN 7.1 L (9.0-27.0) mg/dL BUN/Creatinine Ratio 7.89 L (12.00-20.00) Ratio AST 51 H (14-35) U/L ALT 91 H (10-49) U/L Total Protein 5.6 L (6.2-8.2) g/dL Albumin 3.5 L (3.8-4.9) g/dL Lipase 115 H (14-60) U/L Microbiology - Last 24 Hours (Table) 09/27/22 13:03 Blood Culture - Preliminary Blood No Growth after 48 hours
--- NOTE | 2022-09-30 15:40 | P.PN ---
Subjective Progress Note Date: 09/30/22 This is a 46-year-old male who was recently admitted with abdominal pain and found to have acute pancreatitis. Patient is being closely monitored with infectious disease and other consultations following as patient continues to have fevers and continued abdominal pain. Troponins were mildly elevated and cardiology evaluating the patient. We'll continue with empiric anabiotic's and continue gentle IV hydration. Patient with abdominal pain has been continued on clear liquids. Patient is afebrile today and continues with pain although denies chest pain or shortness of breath. Patient is also having bowel movements and voiding with no difficulties. Encouraged increase activity as tolerated and will continue with pain management. Will follow-up with repeat labs of amylase lipase and BMP. 09/30/2022 Patient is seen and evaluated in follow-up this morning continues to report abdominal pain scheduled to undergo the last part of the HIDA scan. General surgery along with infectious disease is following and patient is continued on antibiotics and blood cultures are negative. WBC trending up and is currently 13.55 today. Patient is afebrile for the last 24 hours. Potassium 3.3 and will replace per protocol. Patient's diet being decreased to clear liquids and will continue gentle IV hydration. Liver function labs are improving and lipase today is 1:15. Pro-calcitonin is 0.29. Patient needs encouragement with getting up and increasing activity as tolerated. Review of systems: Constitutional: No reports of fatigue, fever, or chills Cardiovascular: No reports of chest pain or palpitations Respiratory: No reports of shortness of breath or cough GI: reports of intermittent nausea, no vomiting, or diarrhea, reports continued abdominal pain and cramping : No reports of dysuria or retention Neurovascular: No reports of weakness or numbness All medications have been reviewed PHYSICAL EXAMINATION: GENERAL: The patient is alert and oriented x4, Well developed, well nourished. Obese. HEENT: Pupils are round and equally reacting to light. EOMI. no scleral icterus. No conjunctival pallor. Normocephalic, atraumatic. No pharyngeal erythema. No thyromegaly. CARDIOVASCULAR: S1 and S2 muffled PULMONARY: diminished breath sounds bilaterally with no wheezing or rhonchi noted. ABDOMEN: soft. tender on exam. obese. Mildly-distended, normoactive bowel sounds. No palpable organomegaly. MUSCULOSKELETAL: No joint swelling or deformity. EXTREMITIES: No cyanosis, clubbing, or pedal edema. NEUROLOGICAL: Gross neurological examination did not reveal any focal deficits. SKIN: No rashes. Assessment: Acute severe pancreatitis, slowly improving Fever, possible sepsis secondary to above Acute cholecystitis as noted on HIDA scan and will likely need surgical intervention once pancreatitis has improved Leukocytosis hypertension Hyperlipidemia Troponin elevated up to 0.066 with indeterminate etiology GI prophylaxis DVT prophylaxis Full code Plan: Recommend to continue with current medications and management of multiple medical consultations following. Patient was started on antibiotics and ID following. Recommend follow-up with repeat labs in the a.m. and monitor amylase and lipase along with a CBC and BMP. Encouraged increase activity as tolerated. Patient is continued on clear liquids for now due to abdominal pain with general surgery following. HIDA scan done showing nonvisualization of the gallbladder 90 minutes suggestive of cholecystitis. Patient is afebrile today and recommend continue monitoring vitals closely. Cardiology following as as needed and 2-D echo is reported as a normal LV systolic function with some mild mitral regurgitation and EF estimated about 55%. No plans for immediate surgical interventions at this time although will need follow-up for possible cholecystectomy once pancreatitis is improved. We'll continue antibiotics and recommend repeat labs to monitor white blood count. Will adjust pain medicati ons as patient continues to report 10/10 pain. Patient will need outpatient cardiac follow-up for further workup once this acute illness is resolved. Due to multiple complex medical issues, prognosis is guarded. The impression and plan of care has been dictated by Sri Bartlett, nurse practitioner as directed. Dr. Ghulam MD I have performed a history and examination and MDM of this patient, discussed the same with the dictator, and agree with the dictator's assessment and plan as written ,documented as a scribe. Based on total visit time, I have performed more than 50% of the visit. Any additional findings or plans will be noted. Objective - Vital Signs Vital signs: Vital Signs Temp 98.3 F 09/30/22 12:31 Pulse 84 09/30/22 12:31 Resp 16 09/30/22 12:31 BP 151/99 09/30/22 12:31 Pulse Ox 97 09/30/22 12:31 FiO2 Intake & Output 09/29/22 09/30/22 09/30/22 18:59 06:59 18:59 Intake Total 1660 222 Balance 1660 222 Weight 126.099 kg Intake: Intake, IV Titration 1660 Amount Meropenem 2 gm In Sodium 100 Chloride 0.9% 100 ml @ 33 .3 mls/hr IVPB Q8HR [facility] Rx#:[id number] Sodium Chloride 0.9% 1, 1560 000 ml @ 130 mls/hr IV . Q7H42M [facility] Rx#:[id number] Oral 222 Other: Voiding Method Toilet # Voids 3 - Labs CBC & Chem 7: 09/30/22 05:54 09/30/22 05:54 Labs: Abnormal Lab Results - Last 24 Hours (Table) 09/30/22 09/30/22 Range/Units 05:54 05:54 WBC 13.55 H (4.50-10.00) X 10*3/uL Hct 39.3 L (39.6-50.0) % Immature Gran # 0.28 H (0.00-0.04) X 10*3/uL Neutrophils # 9.99 H (1.80-7.70) X 10*3/uL Monocytes # 1.41 H (0.20-1.00) X 10*3/uL Potassium 3.3 L (3.5-5.5) mmol/L Carbon Dioxide 28.0 H (20.0-27.5) mmol/L BUN 7.1 L (9.0-27.0) mg/dL BUN/Creatinine Ratio 7.89 L (12.00-20.00) Ratio AST 51 H (14-35) U/L ALT 91 H (10-49) U/L Total Protein 5.6 L (6.2-8.2) g/dL Albumin 3.5 L (3.8-4.9) g/dL Lipase 115 H (14-60) U/L Microbiology - Last 24 Hours (Table) 09/27/22 13:03 Blood Culture - Preliminary Blood No Growth after 72 hours
[2022-09-30] MEDS: HYDROcodone/APAP 7.5-325MG 1 EACH TAB PO PRN ×2 (16:16→23:18)
--- NOTE | 2022-09-30 16:42 | P.PN ---
Subjective Progress Note Date: 09/30/22 Principal diagnosis: Pancreatitis Patient is a 46-year-old male presenting to the hospital with acute abdominal pain has been diagnosed with acute pancreatitis subsequently did have a low-grade fever patient did have elevated white count admission subsequently normalized and repeat CAT scan did show improvement in his pancreatitis and no evidence of any necrosis or pseudocyst formation. On today's evaluation that is 09/30/2022, the patient has been afebrile, the pat ient is complaining of more abdominal pain since started on feeding, patient did have some nausea but no vomiting no chest pain shortness of breath or cough Objective - Vital Signs Vital signs: Vital Signs Temp 98.3 F 09/30/22 12:31 Pulse 84 09/30/22 12:31 Resp 16 09/30/22 12:31 BP 151/99 09/30/22 12:31 Pulse Ox 97 09/30/22 12:31 FiO2 Intake & Output 09/29/22 09/30/22 09/30/22 18:59 06:59 18:59 Intake Total 1660 222 Balance 1660 222 Weight 126.099 kg Intake: Intake, IV Titration 1660 Amount Meropenem 2 gm In Sodium 100 Chloride 0.9% 100 ml @ 33 .3 mls/hr IVPB Q8HR [facility] Rx#:[id number] Sodium Chloride 0.9% 1, 1560 000 ml @ 130 mls/hr IV . Q7H42M [facility] Rx#:[id number] Oral 222 Other: Voiding Method Toilet # Voids 3 - Exam GENERAL DESCRIPTION: Middle-aged male lying in bed, no distress. No tachypnea or accessory muscle of respiration use. LUNGS: Unlabored breathing. Clear to auscultation anteriorly. No wheeze or crackle. HEART: S1, S2, regular rate and rhythm. No loud murmur ABDOMEN: Soft, mild epigastric EXTREMITIES: No edema of feet. - Labs CBC & Chem 7: 09/30/22 05:54 09/30/22 05:54 Labs: Abnormal Lab Results - Last 24 Hours (Table) 09/30/22 09/30/22 Range/Units 05:54 05:54 WBC 13.55 H (4.50-10.00) X 10*3/uL Hct 39.3 L (39.6-50.0) % Immature Gran # 0.28 H (0.00-0.04) X 10*3/uL Neutrophils # 9.99 H (1.80-7.70) X 10*3/uL Monocytes # 1.41 H (0.20-1.00) X 10*3/uL Potassium 3.3 L (3.5-5.5) mmol/L Carbon Dioxide 28.0 H (20.0-27.5) mmol/L BUN 7.1 L (9.0-27.0) mg/dL BUN/Creatinine Ratio 7.89 L (12.00-20.00) Ratio AST 51 H (14-35) U/L ALT 91 H (10-49) U/L Total Protein 5.6 L (6.2-8.2) g/dL Albumin 3.5 L (3.8-4.9) g/dL Lipase 115 H (14-60) U/L Microbiology - Last 24 Hours (Table) 09/27/22 13:03 Blood Culture - Preliminary Blood No Growth after 48 hours Assessment and Plan (1) Pancreatitis Current Visit: Yes Status: Acute Code(s): K85.90 - ACUTE PANCREATITIS WITHOUT NECROSIS OR INFECTION, UNSP SNOMED Code(s): 57667589 Plan: 1patient presented to hospital abdominal pain has been diagnosed with acute pancreatitis ultrasound did not show evidence of gallstones and patient did have normal triglyceride levels did have a low-grade fever however repeat CT did not show any evidence of worsening liver improvement and no evidence of any pancreatic pseudocyst or necrotizing infection 2-patient did have a HIDA scan that has been suspicious for cholecystitis and Gen. surgery is on the case 3 The patient fever has resolved white count slightly elevated today we will continue the patient on meropenem at this point Time with Patient: Less than 30
[2022-09-30] MEDS: LOSARTAN 50 MG TAB PO SCH (19:57)
[2022-09-30] MEDS: ATORVASTATIN 20 MG TAB PO SCH (19:58)
[2022-10-01] MEDS: HYDROmorphone 1 MG/ML 1 ML SYRINGE IVP PRN ×3 (04:40→16:32)
[2022-10-01] MEDS: MEROPENEM 1 GM in SODIUM CHLORIDE 0.9% 100 ML IVPB SCH ×3 (08:21→23:15)
[2022-10-01] MEDS: PANTOPRAZOLE 40 MG/10 ML VIAL IV SCH (08:21)
[2022-10-01] MEDS: DEXTROAMPHETAMINE PO SCH (08:22)
[2022-10-01] MEDS: AMPHETAMINE PO SCH (08:22)
[2022-10-01 12:08] LABS: Basophils # (A) 0.08 X 10*3/uL (0.00-0.10); Basophils % (A) 0.5 %; Eosinophils # (A) 0.21 X 10*3/uL (0.04-0.35); Eosinophils % (A) 1.4 %; HGB 13.5 g/dL (13.0-17.0); Immature Grans, Automated 3.7 %; Lymphocytes # (A) 2.11 X 10*3/uL (0.90-5.00); Lymphocytes % (A) 14.4 %; MCH 31.2 pg (27.0-32.0); MCHC 34.6 g/dL (32.0-37.0); MCV 90.1 fL (80.0-97.0); Mean Platelet Volume 9.4 fL (9.5-12.2); Monocytes % (A) 10.2 %; NRBC Per 100 WBC 0 /100 WBCS (0.0-0.0); Neutrophils % (A) 69.8 %; Platelet Count 292 X 10*3/uL (140-440); RBC 4.33 X 10*6/uL (4.40-5.60); RDW 12.1 % (11.5-14.5); WBC 14.64 X 10*3/uL (4.50-10.00)
--- NOTE | 2022-10-01 12:19 | P.PN ---
Subjective Progress Note Date: 10/01/22 Principal diagnosis: Pancreatitis Patient is a 46-year-old male presenting to the hospital with acute abdominal pain has been diagnosed with acute pancreatitis subsequently did have a low-grade fever patient did have elevated white count admission subsequently normalized and repeat CAT scan did show improvement in his pancreatitis and no evidence of any necrosis or pseudocyst formation. On today's evaluation that is 10/01/2022, the patient continues to be afebrile, the patient abdominal pain has slightly decreased in intensity he did have some nausea but no vomiting no diarrhea no chest pain shortness of breath or cough Objective - Vital Signs Vital signs: Vital Signs Temp 98.7 F 10/01/22 03:55 Pulse 90 10/01/22 08:35 Resp 17 10/01/22 08:35 BP 155/67 10/01/22 08:27 Pulse Ox 97 10/01/22 03:55 FiO2 Intake & Output 09/30/22 10/01/22 10/01/22 18:59 06:59 18:59 Weight 126.099 kg Other: Voiding Method Toilet Toilet # Voids 2 1 - Exam GENERAL DESCRIPTION: Middle-aged male lying in bed, no distress. No tachypnea or accessory muscle of respiration use. LUNGS: Unlabored breathing. Clear to auscultation anteriorly. No wheeze or crackle. HEART: S1, S2, regular rate and rhythm. No loud murmur ABDOMEN: Soft, mild epigastric EXTREMITIES: No edema of feet. - Labs CBC & Chem 7: 10/01/22 05:53 09/30/22 05:54 Labs: Microbiology - Last 24 Hours (Table) 09/27/22 13:03 Blood Culture - Preliminary Blood No Growth after 72 hours Assessment and Plan (1) Pancreatitis Current Visit: Yes Status: Acute Code(s): K85.90 - ACUTE PANCREATITIS WITHOUT NECROSIS OR INFECTION, UNSP SNOMED Code(s): 31044985 Plan: 1patient presented to hospital abdominal pain has been diagnosed with acute pancreatitis ultrasound did not show evidence of gallstones and patient did have normal triglyceride levels did have a low-grade fever however repeat CT did not show any evidence of worsening liver improvement and no evidence of any pancreatic pseudocyst or necrotizing infection 2-patient did have a HIDA scan that has been suspicious for cholecystitis and Gen. surgery is on the case, currently recommending medical treatment 3 The patient seemed to have shown some clinical improvement and the patient will be continued on meropenem and monitor clinical course closely Time with Patient: Less than 30
[2022-10-01 12:20] LABS: Chol/HDL Ratio 3.17 Ratio; LDL Cholesterol,Calculated 27.7 mg/dL (0.0-131.0); Lipase 137 U/L (14-60)
[2022-10-01] MEDS: HYDROcodone/APAP 7.5-325MG 1 EACH TAB PO PRN ×2 (12:28→20:09)
[2022-10-01 12:30] LABS: ALT 163 U/L (10-49); AST 118 U/L (14-35); African American GFR (CKD) 118.3 (60.0-200.0); Albumin 3.4 g/dL (3.8-4.9); Alkaline Phosphatase 111 U/L (41-126); BUN/Creat Ratio 6.78 Ratio (12.00-20.00); Blood Urea Nitrogen 6.1 mg/dL (9.0-27.0); Calcium 8.7 mg/dL (8.7-10.3); Chloride 99 mmol/L (96-109); Glucose 98 mg/dL (70-110); Non-African American GFR(CKD) 102.1 (60.0-200.0); Potassium 3.4 mmol/L (3.5-5.5); Sodium 140 mmol/L (135-145); Total Protein 5.4 g/dL (6.2-8.2)
[2022-10-01] MEDS: SODIUM CHLORIDE 0.9% 1,000 ML IV SCH ×2 (14:03→20:10)
[2022-10-01] MEDS ORDERED: POTASSIUM CHLORIDE ER 20 MEQ TAB.ER PO STA (14:29)
--- NOTE | 2022-10-01 14:35 | P.PN ---
Subjective Progress Note Date: 10/01/22 CHIEF COMPLAINT: Pancreatitis HISTORY OF PRESENT ILLNESS: Patient reports that his pain is a little better today. The pain is still located more in the right upper quadrant epigastric area. HIDA scan was nonvisualization of the gallbladder suggestive cholecystitis. Patient currently on a clear liquid diet. He is hungry requesting more food. Afebrile. WBC is 14.6 for Hgb 13.5 platelets 292 sodium is 140 potassium is 3.4 creatinine 0.9 total bili 0.5 AST of 118 ALT up to 163 lipase trending up to 137 Patient seen and examined with Dr. hankins PHYSICAL EXAM: VITAL SIGNS: Reviewed. GENERAL: Well-developed in no acute distress. HEENT: No sclera icterus. Extraocular movements grossly intact. Moist buccal mucosa. Head is atraumatic, normocephalic. ABDOMEN: soft. Epigastric and right upper quadrant tenderness. NEUROLOGIC: Alert and oriented. Cranial nerves II through XII grossly intact. ASSESSMENT: 1. Acute pancreatitis exact etiology unclear 2. Enterocolitis with diarrhea on computed tomography scan 3. Cholecystitis. Gallbladder not visualized on HIDA 4. Hypokalemia PLAN: -Patient scheduled for laparoscopic cholecystectomy on 10/04/[address] hankins -Continue antibiotics -Patient reports improvement in abdominal pain today we will advance diet to full liquids. Patient educated to stop eating if has increase in pain -Continue IV fluids -Continue pain management -Continue supportive care -Encouraged patient to ambulate -Repeat labs in a.m. -Replace potassium Physician Field Traffic Investigator note has been reviewed by physician. Signing provider agrees with the documented findings, assessment, and plan of care. Objective - Vital Signs Vital signs: Vital Signs Temp 98.7 F 10/01/22 11:54 Pulse 85 10/01/22 11:54 Resp 18 10/01/22 11:54 BP 151/97 10/01/22 11:54 Pulse Ox 99 10/01/22 11:54 FiO2 Intake & Output 09/30/22 10/01/22 10/01/22 18:59 06:59 18:59 Weight 126.099 kg Other: Voiding Method Toilet Toilet # Voids 2 1 - Labs CBC & Chem 7: 10/01/22 05:53 10/01/22 05:53 Labs: Abnormal Lab Results - Last 24 Hours (Table) 10/01/22 10/01/22 Range/Units 05:53 05:53 WBC 14.64 H (4.50-10.00) X 10*3/uL RBC 4.33 L (4.40-5.60) X 10*6/uL Hct 39.0 L (39.6-50.0) % MPV 9.4 L (9.5-12.2) fL Immature Gran # 0.54 H (0.00-0.04) X 10*3/uL Neutrophils # 10.20 H (1.80-7.70) X 10*3/uL Monocytes # 1.50 H (0.20-1.00) X 10*3/uL Potassium 3.4 L (3.5-5.5) mmol/L Carbon Dioxide 28.0 H (20.0-27.5) mmol/L BUN 6.1 L (9.0-27.0) mg/dL BUN/Creatinine Ratio 6.78 L (12.00-20.00) Ratio AST 118 H (14-35) U/L ALT 163 H (10-49) U/L Total Protein 5.4 L (6.2-8.2) g/dL Albumin 3.4 L (3.8-4.9) g/dL HDL Cholesterol 24.80 L (40.00-60.00) mg/dL Lipase 137 H (14-60) U/L Microbiology - Last 24 Hours (Table) 09/27/22 13:03 Blood Culture - Preliminary Blood No Growth after 72 hours
--- NOTE | 2022-10-01 19:39 | P.PN ---
Subjective Progress Note Date: 10/01/22 This is a 46-year-old male who was recently admitted with abdominal pain and found to have acute pancreatitis. Patient is being closely monitored with infectious disease and other consultations following as patient continues to have fevers and continued abdominal pain. Troponins were mildly elevated and cardiology evaluating the patient. We'll continue with empiric anabiotic's and continue gentle IV hydration. Patient with abdominal pain has been continued on clear liquids. Patient is afebrile today and continues with pain although denies chest pain or shortness of breath. Patient is also having bowel movements and voiding with no difficulties. Encouraged increase activity as tolerated and will continue with pain management. Will follow-up with repeat labs of amylase lipase and BMP. 09/30/2022 Patient is seen and evaluated in follow-up this morning continues to report abdominal pain scheduled to undergo the last part of the HIDA scan. General surgery along with infectious disease is following and patient is continued on antibiotics and blood cultures are negative. WBC trending up and is currently 13.55 today. Patient is afebrile for the last 24 hours. Potassium 3.3 and will replace per protocol. Patient's diet being decreased to clear liquids and will continue gentle IV hydration. Liver function labs are improving and lipase today is 1:15. Pro-calcitonin is 0.29. Patient needs encouragement with getting up and increasing activity as tolerated. 10/01/2022 Patient is seen and evaluated today continues to be sleeping but easily arousable. Patient reports his pain continues to persist although somewhat improved. Recommend limiting Dilaudid use as patient has been receiving 1 mg every 2 hours as needed. Patient reports to feeling hungry and diet being adva nced per surgery. Patient has persistent on asking about the gallbladder and surgery recommending cholecystectomy on Tuesday. Will continue with antibiotics with ID following as well. Encouraged increase activity as tolerated and educated the patient on the importance of continuing with small frequent meals. Patient has been maintained on clear liquids until now. Patient instructed and educated on the importance to decrease diet is having increased abdominal pain. He is currently afebrile with no reports of chest pain or shortness of breath noted. No reports of nausea or vomiting noted. Review of systems: Constitutional: No reports of fatigue, fever, or chills Cardiovascular: No reports of chest pain or palpitations Respiratory: No reports of shortness of breath or cough GI: No reports of nausea, no vomiting, or diarrhea, reports continued abdominal pain and cramping, patient reports feeling hungry : No reports of dysuria or retention Neurovascular: No reports of weakness or numbness All medications have been reviewed PHYSICAL EXAMINATION: GENERAL: The patient is alert and oriented x4, Well developed, well nourished. Obese. HEENT: Pupils are round and equally reacting to light. EOMI. no scleral icterus. No conjunctival pallor. Normocephalic, atraumatic. No pharyngeal erythema. No thyromegaly. CARDIOVASCULAR: S1 and S2 muffled PULMONARY: diminished breath sounds bilaterally with no wheezing or rhonchi noted. ABDOMEN: soft. tender on exam of the right upper quadrant. obese. Mildly- distended, normoactive bowel sounds. No palpable organomegaly. MUSCULOSKELETAL: No joint swelling or deformity. EXTREMITIES: No cyanosis, clubbing, or pedal edema. NEUROLOGICAL: Gross neurological examination did not reveal any focal deficits. SKIN: No rashes. Assessment: Acute severe pancreatitis, slowly improving Fever, possible sepsis secondary to above Acute cholecystitis as noted on HIDA scan and will likely need surgical intervention once pancreatitis has improved, being scheduled for Tuesday Leukocytosis hypertension Hyperlipidemia Troponin elevated up to 0.066 with indeterminate etiology GI prophylaxis DVT prophylaxis Full code Plan: Recommend to continue with current medications and management of multiple medical consultations following. Patient was started on antibiotics and ID following. Recommend follow-up with repeat labs in the a.m. and monitor amylase and lipase along with a CBC and BMP. Encouraged increase activity as tolerated. Patient is continued on clear liquids for now and reports to feeling hungry and diet is being advanced per surgery. HIDA scan reviewed and patient continues to have right upper quadrant pain and willing to proceed with cholecystectomy. Tentatively being scheduled for this Tuesday coming up. Will continue with IV antibiotics and close monitoring of labs. Discussed with the patient about pain management and recommend limiting the use of IV Dilaudid and is currently 1 mg every 2 hours. Gary has been increased. Patient also instructed to decrease his diet if having increased abdominal pain. Due to multiple complex medical issues, prognosis is guarded. The impression and plan of care has been dictated by Sri Bartlett nurse practitioner as directed. Dr. Ghulam MD I have performed a history and examination and MDM of this patient, discussed the same with the dictator, and agree with the dictator's assessment and plan as written ,documented as a scribe. Based on total visit time, I have performed more than 50% of the visit. Any additional findings or plans will be noted. Objective - Vital Signs Vital signs: Vital Signs Temp 98.7 F 10/01/22 03:55 Pulse 90 10/01/22 08:27 Resp 17 10/01/22 03:55 BP 155/67 10/01/22 08:27 Pulse Ox 97 10/01/22 03:55 FiO2 Intake & Output 09/30/22 10/01/22 10/01/22 18:59 06:59 18:59 Other: Voiding Method Toilet # Voids 2 1 - Labs CBC & Chem 7: 10/01/22 05:53 10/01/22 05:53 Labs: Microbiology - Last 24 Hours (Table) 09/27/22 13:03 Blood Culture - Preliminary Blood No Growth after 72 hours
[2022-10-01] MEDS: ATORVASTATIN 20 MG TAB PO SCH (20:09)
[2022-10-01] MEDS: LOSARTAN 50 MG TAB PO SCH (20:09)
[2022-10-02] MEDS: HYDROcodone/APAP 7.5-325MG 1 EACH TAB PO PRN ×4 (01:47→19:50)
[2022-10-02] MEDS: HYDROmorphone 0.5 MG/0.5 ML SYRINGE IVP PRN ×4 (05:36→22:19)
[2022-10-02] MEDS: MEROPENEM 1 GM in SODIUM CHLORIDE 0.9% 100 ML IVPB SCH ×3 (08:03→23:21)
[2022-10-02] MEDS: PANTOPRAZOLE 40 MG/10 ML VIAL IV SCH (08:03)
[2022-10-02] MEDS: SODIUM CHLORIDE 0.9% 1,000 ML IV SCH ×3 (08:04→23:21)
[2022-10-02] MEDS: DEXTROAMPHETAMINE PO SCH (08:05)
[2022-10-02] MEDS: AMPHETAMINE PO SCH (08:05)
[2022-10-02 09:42] LABS: Basophils # (M) 0 X 10*3/uL (0.00-0.10); Eosinophils # (M) 0.71 X 10*3/uL (0.04-0.35); HCT 40.2 % (39.6-50.0); HGB 13.6 g/dL (13.0-17.0); Lymphocytes # (M) 2.13 X 10*3/uL (0.90-5.00); MCH 31.1 pg (27.0-32.0); MCHC 33.8 g/dL (32.0-37.0); Mean Platelet Volume 9.5 fL (9.5-12.2); Metamyelocytes % 3 % (0-0); Monocytes # (M) 0.47 X 10*3/uL (0.20-1.00); Myelocytes % 2 % (0-0); NRBC Per 100 WBC 0 /100 WBCS (0.0-0.0); Neutrophils # (M) 7.93 X 10*3/uL (2.00-8.90); Neutrophils % (M) 67 %; Platelet Count 317 X 10*3/uL (140-440); RBC 4.37 X 10*6/uL (4.40-5.60); RDW 12.1 % (11.5-14.5); WBC 11.84 X 10*3/uL (4.50-10.00)
[2022-10-02 09:58] LABS: African American GFR (CKD) 118.3 (60.0-200.0); Albumin 3.3 g/dL (3.8-4.9); Albumin/Globulin Ratio 1.57 (1.60-3.17); Anion Gap 11.7 mmol/L (10.00-18.00); BUN/Creat Ratio 7.22 Ratio (12.00-20.00); Blood Urea Nitrogen 6.5 mg/dL (9.0-27.0); Calcium 8.5 mg/dL (8.7-10.3); Carbon Dioxide 30.3 mmol/L (20.0-27.5); Globulin 2.1 g/dL (1.6-3.3); Non-African American GFR(CKD) 102.1 (60.0-200.0); Potassium 3.7 mmol/L (3.5-5.5); Total Bilirubin 0.5 mg/dL (0.30-1.20); Total Protein 5.4 g/dL (6.2-8.2)
--- NOTE | 2022-10-02 11:08 | P.PN ---
Subjective Progress Note Date: 10/02/22 Principal diagnosis: Pancreatitis Patient says he feels slightly worse today. His liver enzymes and pancreatic enzymes both increased. He is currently on full liquids. Objective - Vital Signs Vital signs: Vital Signs Temp 98.3 F 10/02/22 05:00 Pulse 77 10/02/22 05:00 Resp 16 10/02/22 05:00 BP 161/108 10/02/22 05:00 Pulse Ox 99 10/02/22 05:00 FiO2 Intake & Output 10/01/22 10/02/22 10/02/22 18:59 06:59 18:59 Intake Total 360 1000 Balance 360 1000 Weight 126.099 kg Intake: Intake, IV Titration 1000 Amount Meropenem 1 gm In Sodium 100 Chloride 0.9% 100 ml @ 33 .3 mls/hr IVPB Q8HR [facility] Rx#:[id number] Sodium Chloride 0.9% 1, 900 000 ml @ 75 mls/hr IV . [id number] [facility] Rx#:[id number] Oral 360 Other: Voiding Method Toilet Toilet # Voids 4 - Exam Abdomen: Soft, mild distention, mild upper abdominal tenderness - Labs CBC & Chem 7: 10/02/22 06:00 10/02/22 06:00 Labs: Abnormal Lab Results - Last 24 Hours (Table) 10/01/22 10/01/22 10/02/22 Range/Units 05:53 05:53 06:00 WBC 14.64 H 11.84 H (4.50-10.00) X 10*3/uL RBC 4.33 L 4.37 L (4.40-5.60) X 10*6/uL Hct 39.0 L (39.6-50.0) % MPV 9.4 L (9.5-12.2) fL Metamyelocytes % 3 H (0-0) % Myelocytes % 2 H (0-0) % Immature Gran # 0.54 H (0.00-0.04) X 10*3/uL Neutrophils # 10.20 H (1.80-7.70) X 10*3/uL Monocytes # 1.50 H (0.20-1.00) X 10*3/uL Eosinophils # (Manual) 0.71 H (0.04-0.35) X 10*3/uL Potassium 3.4 L (3.5-5.5) mmol/L Carbon Dioxide 28.0 H (20.0-27.5) mmol/L BUN 6.1 L (9.0-27.0) mg/dL BUN/Creatinine Ratio 6.78 L (12.00-20.00) Ratio Calcium (8.7-10.3) mg/dL AST 118 H (14-35) U/L ALT 163 H (10-49) U/L Alkaline Phosphatase (41-126) U/L Total Protein 5.4 L (6.2-8.2) g/dL Albumin 3.4 L (3.8-4.9) g/dL Albumin/Globulin Ratio (1.60-3.17) g/dL HDL Cholesterol 24.80 L (40.00-60.00) mg/dL Lipase 137 H (14-60) U/L 10/02/22 Range/Units 06:00 WBC (4.50-10.00) X 10*3/uL RBC (4.40-5.60) X 10*6/uL Hct (39.6-50.0) % MPV (9.5-12.2) fL Metamyelocytes % (0-0) % Myelocytes % (0-0) % Immature Gran # (0.00-0.04) X 10*3/uL Neutrophils # (1.80-7.70) X 10*3/uL Monocytes # (0.20-1.00) X 10*3/uL Eosinophils # (Manual) (0.04-0.35) X 10*3/uL Potassium (3.5-5.5) mmol/L Carbon Dioxide 30.3 H (20.0-27.5) mmol/L BUN 6.5 L (9.0-27.0) mg/dL BUN/Creatinine Ratio 7.22 L (12.00-20.00) Ratio Calcium 8.5 L (8.7-10.3) mg/dL AST 325 H (14-35) U/L ALT 406 H (10-49) U/L Alkaline Phosphatase 129 H (41-126) U/L Total Protein 5.4 L (6.2-8.2) g/dL Albumin 3.3 L (3.8-4.9) g/dL Albumin/Globulin Ratio 1.57 L (1.60-3.17) g/dL HDL Cholesterol (40.00-60.00) mg/dL Lipase 169 H (14-60) U/L Microbiology - Last 24 Hours (Table) 09/27/22 13:03 Blood Culture - Preliminary Blood No Growth after 96 hours Assessment and Plan (1) Pancreatitis Narrative/Plan: Patient with increasing abdominal discomfort and abnormal lab values. Change diet to clear liquids. Repeat labs tomorrow. Will follow. Current Visit: Yes Status: Acute Code(s): K85.90 - ACUTE PANCREATITIS WITHOUT NECROSIS OR INFECTION, UNSP SNOMED Code(s): 71210866
--- NOTE | 2022-10-02 11:34 | P.PN ---
Subjective Progress Note Date: 10/02/22 Principal diagnosis: Pancreatitis Patient is a 46-year-old male presenting to the hospital with acute abdominal pain has been diagnosed with acute pancreatitis subsequently did have a low-grade fever patient did have elevated white count admission subsequently normalized and repeat CAT scan did show improvement in his pancreatitis and no evidence of any necrosis or pseudocyst formation. On today's evaluation that is 10/02/2022, the patient remains to be afebrile, th e patient abdominal pain has decreased in intensity, patient denies having any nausea no vomiting and no chest pain shortness of breath or cough Objective - Vital Signs Vital signs: Vital Signs Temp 98.3 F 10/02/22 05:00 Pulse 77 10/02/22 05:00 Resp 16 10/02/22 05:00 BP 161/108 10/02/22 05:00 Pulse Ox 99 10/02/22 05:00 FiO2 Intake & Output 10/01/22 10/02/22 10/02/22 18:59 06:59 18:59 Intake Total 360 1000 Balance 360 1000 Weight 126.099 kg Intake: Intake, IV Titration 1000 Amount Meropenem 1 gm In Sodium 100 Chloride 0.9% 100 ml @ 33 .3 mls/hr IVPB Q8HR [facility] Rx#:[id number] Sodium Chloride 0.9% 1, 900 000 ml @ 75 mls/hr IV . [id number] [facility] Rx#:[id number] Oral 360 Other: Voiding Method Toilet Toilet # Voids 4 - Exam GENERAL DESCRIPTION: Middle-aged male lying in bed, no distress. No tachypnea or accessory muscle of respiration use. LUNGS: Unlabored breathing. Clear to auscultation anteriorly. No wheeze or crackle. HEART: S1, S2, regular rate and rhythm. No loud murmur ABDOMEN: Soft, mild epigastric EXTREMITIES: No edema of feet. - Labs CBC & Chem 7: 10/02/22 06:00 10/02/22 06:00 Labs: Abnormal Lab Results - Last 24 Hours (Table) 10/01/22 10/01/22 10/02/22 Range/Units 05:53 05:53 06:00 WBC 14.64 H 11.84 H (4.50-10.00) X 10*3/uL RBC 4.33 L 4.37 L (4.40-5.60) X 10*6/uL Hct 39.0 L (39.6-50.0) % MPV 9.4 L (9.5-12.2) fL Metamyelocytes % 3 H (0-0) % Myelocytes % 2 H (0-0) % Immature Gran # 0.54 H (0.00-0.04) X 10*3/uL Neutrophils # 10.20 H (1.80-7.70) X 10*3/uL Monocytes # 1.50 H (0.20-1.00) X 10*3/uL Eosinophils # (Manual) 0.71 H (0.04-0.35) X 10*3/uL Potassium 3.4 L (3.5-5.5) mmol/L Carbon Dioxide 28.0 H (20.0-27.5) mmol/L BUN 6.1 L (9.0-27.0) mg/dL BUN/Creatinine Ratio 6.78 L (12.00-20.00) Ratio AST 118 H (14-35) U/L ALT 163 H (10-49) U/L Total Protein 5.4 L (6.2-8.2) g/dL Albumin 3.4 L (3.8-4.9) g/dL HDL Cholesterol 24.80 L (40.00-60.00) mg/dL Lipase 137 H (14-60) U/L 10/02/22 Range/Units 06:00 WBC (4.50-10.00) X 10*3/uL RBC (4.40-5.60) X 10*6/uL Hct (39.6-50.0) % MPV (9.5-12.2) fL Metamyelocytes % (0-0) % Myelocytes % (0-0) % Immature Gran # (0.00-0.04) X 10*3/uL Neutrophils # (1.80-7.70) X 10*3/uL Monocytes # (0.20-1.00) X 10*3/uL Eosinophils # (Manual) (0.04-0.35) X 10*3/uL Potassium (3.5-5.5) mmol/L Carbon Dioxide (20.0-27.5) mmol/L BUN (9.0-27.0) mg/dL BUN/Creatinine Ratio (12.00-20.00) Ratio AST (14-35) U/L ALT (10-49) U/L Total Protein (6.2-8.2) g/dL Albumin (3.8-4.9) g/dL HDL Cholesterol (40.00-60.00) mg/dL Lipase 169 H (14-60) U/L Microbiology - Last 24 Hours (Table) 09/27/22 13:03 Blood Culture - Preliminary Blood No Growth after 96 hours Assessment and Plan (1) Pancreatitis Current Visit: Yes Status: Acute Code(s): K85.90 - ACUTE PANCREATITIS WITHOUT NECROSIS OR INFECTION, UNSP SNOMED Code(s): 98054925 Plan: 1patient presented to hospital abdominal pain has been diagnosed with acute pancreatitis ultrasound did not show evidence of gallstones and patient did have normal triglyceride levels did have a low-grade fever however repeat CT did not show any evidence of worsening liver improvement and no evidence of any pancreatic pseudocyst or necrotizing infection 2-patient did have a HIDA scan that has been suspicious for cholecystitis and Gen. surgery is on the case, currently recommending medical treatment 3 The patient slowly clinically improving, the patient white count is down to 11,000, patient will be continued on meropenem and monitor clinical course closely Time with Patient: Less than 30
--- NOTE | 2022-10-02 12:50 | P.PN ---
Subjective From the records This is a 46-year-old male who was recently admitted with abdominal pain and found to have acute pancreatitis. Patient is being closely monitored with infectious disease and other consultations following as patient continues to hav e fevers and continued abdominal pain. Troponins were mildly elevated and cardiology evaluating the patient. We'll continue with empiric anabiotic's and continue gentle IV hydration. Patient with abdominal pain has been continued on clear liquids. Patient is afebrile today and continues with pain although denies chest pain or shortness of breath. Patient is also having bowel movements and voiding with no difficulties. Encouraged increase activity as tolerated and will continue with pain management. Will follow-up with repeat labs of amylase lipase and BMP. 09/30/2022 Patient is seen and evaluated in follow-up this morning continues to report abdominal pain scheduled to undergo the last part of the HIDA scan. General surgery along with infectious disease is following and patient is continued on antibiotics and blood cultures are negative. WBC trending up and is currently 13.55 today. Patient is afebrile for the last 24 hours. Potassium 3.3 and will replace per protocol. Patient's diet being decreased to clear liquids and will continue gentle IV hydration. Liver function labs are improving and lipase today is 1:15. Pro-calcitonin is 0.29. Patient needs encouragement with getting up and increasing activity as tolerated. 10/01/2022 Patient is seen and evaluated today continues to be sleeping but easily arousable. Patient reports his pain continues to persist although somewhat improved. Recommend limiting Dilaudid use as patient has been receiving 1 mg every 2 hours as needed. Patient reports to feeling hungry and diet being advanced per surgery. Patient has persistent on asking about the gallbladder and surgery recommending cholecystectomy on Tuesday. Will continue with antibiotics with ID following as well. Encouraged increase activity as tolerated and educated the patient on the importance of continuing with small frequent meals. Patient has been maintained on clear liquids until now. Patient instructed and educated on the importance to decrease diet is having increased abdominal pain. He is currently afebrile with no reports of chest pain or shortness of breath noted. No reports of nausea or vomiting noted. I'm resume the care of the patient today 10/02/2012 this is a pleasant 46 years old male who presents initially with abdominal pain and he has evidence of acute pancreatitis with elevated liver enzymes slightly trending up. Also he has some evidence of acute enterocolitis Patient is currently covered with meropenem and #75 mL/h Yesterday his diet was advanced but he was more abdominal pain today therefore he was kept on liquid diet with surgery team following closely. Also liver enzymes went up with AST 325 and ALT 460 but bilirubin is normal 0.5, liver enzymes were normal on admission. No vomiting, no diarrhea but is passing gas. Actually he did not have bowel movement. He rates his abdominal pain at 7/10 today. We are going to increase his normal saline 125 mL per hour, he is on Dilaudid for pain management I discussed with the patient and there is no GI service in this facility, I offered for him to transfer him to tertiary care center for high level of care, patient declined and he wants to stay in the hospital, problems and management plan discussed with the patient in details and he is agreeable Objective - Vital Signs Vital signs: Vital Signs Temp 98.2 F 10/02/22 11:16 Pulse 76 10/02/22 11:16 Resp 16 10/02/22 11:16 BP 145/88 10/02/22 11:16 Pulse Ox 98 10/02/22 11:16 FiO2 Intake & Output 10/01/22 10/02/22 10/02/22 18:59 06:59 18:59 Intake Total 360 1000 Balance 360 1000 Weight 126.099 kg Intake: Intake, IV Titration 1000 Amount Meropenem 1 gm In Sodium 100 Chloride 0.9% 100 ml @ 33 .3 mls/hr IVPB Q8HR [facility] Rx#:[id number] Sodium Chloride 0.9% 1, 900 000 ml @ 75 mls/hr IV . [id number] [facility] Rx#:[id number] Oral 360 Other: Voiding Method Toilet Toilet Toilet # Voids 4 - Exam GENERAL: The patient is alert and oriented x3, not in any acute distress. Well developed, well nourished. HEENT: Pupils are round and equally reacting to light. EOMI. No scleral icterus. No conjunctival pallor. Normocephalic, atraumatic. No pharyngeal erythema. No thyromegaly. CARDIOVASCULAR: S1 and S2 present. No murmurs, rubs, or gallops. PULMONARY: Chest is clear to auscultation, no wheezing or crackles. -ABDOMEN: Soft, right-sided abdominal tenderness with no guarding or rebound tenderness, nondistended, normoactive bowel sounds. No palpable organomegaly. MUSCULOSKELETAL: No joint swelling or deformity. EXTREMITIES: No cyanosis, clubbing, or pedal edema. NEUROLOGICAL: Gross neurological examination did not reveal any focal deficits. SKIN: No rashes. no petechiae. - Labs CBC & Chem 7: 10/02/22 06:00 10/02/22 06:00 Labs: Abnormal Lab Results - Last 24 Hours (Table) 10/02/22 10/02/22 Range/Units 06:00 06:00 WBC 11.84 H (4.50-10.00) X 10*3/uL RBC 4.37 L (4.40-5.60) X 10*6/uL Metamyelocytes % 3 H (0-0) % Myelocytes % 2 H (0-0) % Eosinophils # (Manual) 0.71 H (0.04-0.35) X 10*3/uL Carbon Dioxide 30.3 H (20.0-27.5) mmol/L BUN 6.5 L (9.0-27.0) mg/dL BUN/Creatinine Ratio 7.22 L (12.00-20.00) Ratio Calcium 8.5 L (8.7-10.3) mg/dL AST 325 H (14-35) U/L ALT 406 H (10-49) U/L Alkaline Phosphatase 129 H (41-126) U/L Total Protein 5.4 L (6.2-8.2) g/dL Albumin 3.3 L (3.8-4.9) g/dL Albumin/Globulin Ratio 1.57 L (1.60-3.17) g/dL Lipase 169 H (14-60) U/L Microbiology - Last 24 Hours (Table) 09/27/22 13:03 Blood Culture - Preliminary Blood No Growth after 96 hours Assessment and Plan Assessment: Acute pancreatitis Acute cholecystitis (suspected on HIDA scan because of nonvisualization of the gallbladder) Acute enterocolitis Transaminitis with trending up liver enzymes Plan: Continue with bowel rest, currently on liquid diet with surgery team following Pain management IV fluids Surgery team consult Infectious disease consult Labs and medication were reviewed.. Continue same treatment. Continue with symptomatic treatment. Resume home medication. Monitor labs and vitals. DVT and GI prophylaxis. Further recommendations as per clinical course of the patient DVT prophylaxis: Subcutaneous heparin GI Prophylaxis: Ppi PT/OT: Pending Prognosis is guarded
[2022-10-02] MEDS: HEPARIN SODIUM,PORCINE/PF 5,000 UNIT/0.5 ML SYRINGE SQ SCH (20:23)
[2022-10-02] MEDS: LOSARTAN 50 MG TAB PO SCH (20:23)
[2022-10-02] MEDS: ATORVASTATIN 20 MG TAB PO SCH (20:23)
[2022-10-03] MEDS: HYDROmorphone 0.5 MG/0.5 ML SYRINGE IVP PRN ×7 (02:18→22:25)
[2022-10-03] MEDS: HYDROcodone/APAP 7.5-325MG 1 EACH TAB PO PRN ×4 (04:12→23:49)
[2022-10-03] MEDS: MEROPENEM 1 GM in SODIUM CHLORIDE 0.9% 100 ML IVPB SCH ×3 (08:54→23:47)
[2022-10-03] MEDS: HEPARIN SODIUM,PORCINE/PF 5,000 UNIT/0.5 ML SYRINGE SQ SCH ×2 (08:58→20:24)
[2022-10-03] MEDS: AMPHETAMINE PO SCH (08:59)
[2022-10-03] MEDS: PANTOPRAZOLE 40 MG/10 ML VIAL IV SCH (08:59)
[2022-10-03] MEDS: DEXTROAMPHETAMINE PO SCH (08:59)
[2022-10-03 09:54] LABS: African American GFR (CKD) 118.3 (60.0-200.0); Albumin 3.3 g/dL (3.8-4.9); Albumin/Globulin Ratio 1.57 (1.60-3.17); Anion Gap 9.4 mmol/L (10.00-18.00); Blood Urea Nitrogen 5.4 mg/dL (9.0-27.0); Calcium 8.6 mg/dL (8.7-10.3); Carbon Dioxide 31.6 mmol/L (20.0-27.5); Globulin 2.1 g/dL (1.6-3.3); Non-African American GFR(CKD) 102.1 (60.0-200.0); Potassium 3.9 mmol/L (3.5-5.5); Total Bilirubin 0.4 mg/dL (0.30-1.20); Total Protein 5.4 g/dL (6.2-8.2)
[2022-10-03 10:38] LABS: HCT 41.4 % (39.6-50.0); HGB 13.6 g/dL (13.0-17.0); Lymphocytes # (M) 2.38 X 10*3/uL (0.90-5.00); MCH 30.8 pg (27.0-32.0); MCHC 32.9 g/dL (32.0-37.0); MCV 93.7 fL (80.0-97.0); Mean Platelet Volume 9.2 fL (9.5-12.2); Myelocytes % 1 % (0-0); NRBC Per 100 WBC 0 /100 WBCS (0.0-0.0); Neutrophils # (M) 6.65 X 10*3/uL (2.00-8.90); Neutrophils % (M) 67 %; Platelet Count 349 X 10*3/uL (140-440); RBC 4.42 X 10*6/uL (4.40-5.60); RDW 11.9 % (11.5-14.5); WBC 9.92 X 10*3/uL (4.50-10.00)
--- NOTE | 2022-10-03 10:47 | P.PN ---
Subjective Progress Note Date: 10/03/22 Principal diagnosis: Pancreatitis Patient is doing about the same today. His lab values have improved however. No nausea or vomiting. Objective - Vital Signs Vital signs: Vital Signs Temp 97.9 F 10/03/22 05:00 Pulse 67 10/03/22 05:00 Resp 20 10/03/22 05:00 BP 156/99 10/03/22 05:00 Pulse Ox 98 10/03/22 05:00 FiO2 Intake & Output 10/02/22 10/03/22 10/03/22 18:59 06:59 18:59 Intake Total 480 1780 Balance 480 1780 Intake: Intake, IV Titration 1300 Amount Meropenem 1 gm In Sodium 100 Chloride 0.9% 100 ml @ 33 .3 mls/hr IVPB Q8HR [facility] Rx#:[id number] Sodium Chloride 0.9% 1, 1200 000 ml @ 125 mls/hr IV . Q8H [facility] Rx#:[id number] Oral 480 480 Other: Voiding Method Toilet Toilet # Voids 4 4 - Exam Abdomen: Soft, nondistended, mild epigastric tenderness - Labs CBC & Chem 7: 10/03/22 06:05 10/03/22 06:05 Labs: Abnormal Lab Results - Last 24 Hours (Table) 10/03/22 10/03/22 Range/Units 06:05 06:05 MPV 9.2 L (9.5-12.2) fL Myelocytes % 1 H (0-0) % Eosinophils # (Manual) 0.40 H (0.04-0.35) X 10*3/uL Carbon Dioxide 31.6 H (20.0-27.5) mmol/L Anion Gap 9.40 L (10.00-18.00) mmol/L BUN 5.4 L (9.0-27.0) mg/dL BUN/Creatinine Ratio 6.00 L (12.00-20.00) Ratio Glucose 114 H (70-110) mg/dL Calcium 8.6 L (8.7-10.3) mg/dL AST 146 H (14-35) U/L ALT 343 H (10-49) U/L Total Protein 5.4 L (6.2-8.2) g/dL Albumin 3.3 L (3.8-4.9) g/dL Albumin/Globulin Ratio 1.57 L (1.60-3.17) g/dL Lipase 153 H (14-60) U/L Microbiology - Last 24 Hours (Table) 09/27/22 13:03 Blood Culture - Preliminary Blood No Growth after 120 hours Assessment and Plan (1) Pancreatitis Narrative/Plan: Patient seems to be doing better. Continue liquid diet. Proceed with laparoscopic cholecystectomy tomorrow based on HIDA scan findings. Follow lab work. Current Visit: Yes Status: Acute Code(s): K85.90 - ACUTE PANCREATITIS WITHOUT NECROSIS OR INFECTION, UNSP SNOMED Code(s): 40539465
--- NOTE | 2022-10-03 13:42 | P.PN ---
Subjective From the records This is a 46-year-old male who was recently admitted with abdominal pain and found to have acute pancreatitis. Patient is being closely monitored with infectious disease and other consultations following as patient continues to hav e fevers and continued abdominal pain. Troponins were mildly elevated and cardiology evaluating the patient. We'll continue with empiric anabiotic's and continue gentle IV hydration. Patient with abdominal pain has been continued on clear liquids. Patient is afebrile today and continues with pain although denies chest pain or shortness of breath. Patient is also having bowel movements and voiding with no difficulties. Encouraged increase activity as tolerated and will continue with pain management. Will follow-up with repeat labs of amylase lipase and BMP. 09/30/2022 Patient is seen and evaluated in follow-up this morning continues to report abdominal pain scheduled to undergo the last part of the HIDA scan. General surgery along with infectious disease is following and patient is continued on antibiotics and blood cultures are negative. WBC trending up and is currently 13.55 today. Patient is afebrile for the last 24 hours. Potassium 3.3 and will replace per protocol. Patient's diet being decreased to clear liquids and will continue gentle IV hydration. Liver function labs are improving and lipase today is 1:15. Pro-calcitonin is 0.29. Patient needs encouragement with getting up and increasing activity as tolerated. 10/01/2022 Patient is seen and evaluated today continues to be sleeping but easily arousable. Patient reports his pain continues to persist although somewhat improved. Recommend limiting Dilaudid use as patient has been receiving 1 mg every 2 hours as needed. Patient reports to feeling hungry and diet being advanced per surgery. Patient has persistent on asking about the gallbladder and surgery recommending cholecystectomy on Tuesday. Will continue with antibiotics with ID following as well. Encouraged increase activity as tolerated and educated the patient on the importance of continuing with small frequent meals. Patient has been maintained on clear liquids until now. Patient instructed and educated on the importance to decrease diet is having increased abdominal pain. He is currently afebrile with no reports of chest pain or shortness of breath noted. No reports of nausea or vomiting noted. I'm resume the care of the patient today 10/02/2012 this is a pleasant 46 years old male who presents initially with abdominal pain and he has evidence of acute pancreatitis with elevated liver enzymes slightly trending up. Also he has some evidence of acute enterocolitis Patient is currently covered with meropenem and #75 mL/h Yesterday his diet was advanced but he was more abdominal pain today therefore he was kept on liquid diet with surgery team following closely. Also liver enzymes went up with AST 325 and ALT 460 but bilirubin is normal 0.5, liver enzymes were normal on admission. No vomiting, no diarrhea but is passing gas. Actually he did not have bowel movement. He rates his abdominal pain at 7/10 today. We are going to increase his normal saline 125 mL per hour, he is on Dilaudid for pain management I discussed with the patient and there is no GI service in this facility, I offered for him to transfer him to tertiary care center for high level of care, patient declined and he wants to stay in the hospital, problems and management plan discussed with the patient in details and he is agreeable 10/03/2022 His abdominal pain and symptoms are improving slightly today as well as liver enzymes. Vitals are stable No leukocytosis as the please see back to normal Plan for lap cholecystectomy tomorrow with surgery team Objective - Vital Signs Vital signs: Vital Signs Temp 98.6 F 10/03/22 11:10 Pulse 70 10/03/22 12:03 Resp 18 10/03/22 12:03 BP 166/103 10/03/22 12:03 Pulse Ox 97 10/03/22 11:10 FiO2 Intake & Output 10/02/22 10/03/22 10/03/22 18:59 06:59 18:59 Intake Total 480 1780 Balance 480 1780 Intake: Intake, IV Titration 1300 Amount Meropenem 1 gm In Sodium 100 Chloride 0.9% 100 ml @ 33 .3 mls/hr IVPB Q8HR [facility] Rx#:[id number] Sodium Chloride 0.9% 1, 1200 000 ml @ 125 mls/hr IV . Q8H [facility] Rx#:[id number] Oral 480 480 Other: Voiding Method Toilet Toilet Toilet # Voids 4 4 - Exam GENERAL: The patient is alert and oriented x3, not in any acute distress. Well developed, well nourished. HEENT: Pupils are round and equally reacting to light. EOMI. No scleral icterus. No conjunctival pallor. Normocephalic, atraumatic. No pharyngeal erythema. No thyromegaly. CARDIOVASCULAR: S1 and S2 present. No murmurs, rubs, or gallops. PULMONARY: Chest is clear to auscultation, no wheezing or crackles. -ABDOMEN: Soft, right-sided abdominal tenderness with no guarding or rebound tenderness, nondistended, normoactive bowel sounds. No palpable organomegaly. MUSCULOSKELETAL: No joint swelling or deformity. EXTREMITIES: No cyanosis, clubbing, or pedal edema. NEUROLOGICAL: Gross neurological examination did not reveal any focal deficits. SKIN: No rashes. no petechiae. - Labs CBC & Chem 7: 10/03/22 06:05 10/03/22 06:05 Labs: Abnormal Lab Results - Last 24 Hours (Table) 10/03/22 10/03/22 Range/Units 06:05 06:05 MPV 9.2 L (9.5-12.2) fL Myelocytes % 1 H (0-0) % Eosinophils # (Manual) 0.40 H (0.04-0.35) X 10*3/uL Carbon Dioxide 31.6 H (20.0-27.5) mmol/L Anion Gap 9.40 L (10.00-18.00) mmol/L BUN 5.4 L (9.0-27.0) mg/dL BUN/Creatinine Ratio 6.00 L (12.00-20.00) Ratio Glucose 114 H (70-110) mg/dL Calcium 8.6 L (8.7-10.3) mg/dL AST 146 H (14-35) U/L ALT 343 H (10-49) U/L Total Protein 5.4 L (6.2-8.2) g/dL Albumin 3.3 L (3.8-4.9) g/dL Albumin/Globulin Ratio 1.57 L (1.60-3.17) g/dL Lipase 153 H (14-60) U/L Microbiology - Last 24 Hours (Table) 09/27/22 13:03 Blood Culture - Preliminary Blood No Growth after 120 hours Assessment and Plan Assessment: Acute pancreatitis Acute cholecystitis (suspected on HIDA scan because of nonvisualization of the gallbladder) Acute enterocolitis Transaminitis with trending up liver enzymes Plan: Continue with bowel rest, currently on liquid diet with surgery team following Pain management IV fluids Surgery team consult Infectious disease consult. Laparoscopic Cholecystectomy on Thursday 10/04 Labs and medication were reviewed.. Continue same treatment. Continue with symptomatic treatment. Resume home medication. Monitor labs and vitals. DVT and GI prophylaxis. Further recommendations as per clinical course of the patient DVT prophylaxis: Subcutaneous heparin GI Prophylaxis: Ppi PT/OT: Pending Prognosis is guarded
--- NOTE | 2022-10-03 15:14 | P.PN ---
Subjective Progress Note Date: 10/03/22 Principal diagnosis: Pancreatitis Patient is a 46-year-old male presenting to the hospital with acute abdominal pain has been diagnosed with acute pancreatitis subsequently did have a low-grade fever patient did have elevated white count admission subsequently normalized and repeat CAT scan did show improvement in his pancreatitis and no evidence of any necrosis or pseudocyst formation. On today's evaluation that is 10/03/2022, the patient continues to be afebrile, the patient abdominal pain has decreased in intensity and the patient is tolerating his diet at this point, patient denies having any nausea no vomiting and no chest pain shortness of breath or cough Objective - Vital Signs Vital signs: Vital Signs Temp 98.6 F 10/03/22 11:10 Pulse 70 10/03/22 12:03 Resp 18 10/03/22 12:03 BP 166/103 10/03/22 12:03 Pulse Ox 97 10/03/22 11:10 FiO2 Intake & Output 10/02/22 10/03/22 10/03/22 18:59 06:59 18:59 Intake Total 480 1780 Balance 480 1780 Intake: Intake, IV Titration 1300 Amount Meropenem 1 gm In Sodium 100 Chloride 0.9% 100 ml @ 33 .3 mls/hr IVPB Q8HR [facility] Rx#:[id number] Sodium Chloride 0.9% 1, 1200 000 ml @ 125 mls/hr IV . Q8H [facility] Rx#:[id number] Oral 480 480 Other: Voiding Method Toilet Toilet Toilet # Voids 4 4 - Exam GENERAL DESCRIPTION: Middle-aged male lying in bed, no distress. No tachypnea or accessory muscle of respiration use. LUNGS: Unlabored breathing. Clear to auscultation anteriorly. No wheeze or cr ackle. HEART: S1, S2, regular rate and rhythm. No loud murmur ABDOMEN: Soft, mild epigastric EXTREMITIES: No edema of feet. - Labs CBC & Chem 7: 10/03/22 06:05 10/03/22 06:05 Labs: Abnormal Lab Results - Last 24 Hours (Table) 10/03/22 10/03/22 Range/Units 06:05 06:05 MPV 9.2 L (9.5-12.2) fL Myelocytes % 1 H (0-0) % Eosinophils # (Manual) 0.40 H (0.04-0.35) X 10*3/uL Carbon Dioxide 31.6 H (20.0-27.5) mmol/L Anion Gap 9.40 L (10.00-18.00) mmol/L BUN 5.4 L (9.0-27.0) mg/dL BUN/Creatinine Ratio 6.00 L (12.00-20.00) Ratio Glucose 114 H (70-110) mg/dL Calcium 8.6 L (8.7-10.3) mg/dL AST 146 H (14-35) U/L ALT 343 H (10-49) U/L Total Protein 5.4 L (6.2-8.2) g/dL Albumin 3.3 L (3.8-4.9) g/dL Albumin/Globulin Ratio 1.57 L (1.60-3.17) g/dL Lipase 153 H (14-60) U/L Microbiology - Last 24 Hours (Table) 09/27/22 13:03 Blood Culture - Preliminary Blood No Growth after 120 hours Assessment and Plan (1) Pancreatitis Current Visit: Yes Status: Acute Code(s): K85.90 - ACUTE PANCREATITIS WITHOUT NECROSIS OR INFECTION, UNSP SNOMED Code(s): 05838883 Plan: 1patient presented to hospital abdominal pain has been diagnosed with acute pancreatitis ultrasound did not show evidence of gallstones and patient did have normal triglyceride levels did have a low-grade fever however repeat CT did not show any evidence of worsening liver improvement and no evidence of any pancreatic pseudocyst or necrotizing infection 2-patient did have a HIDA scan that has been suspicious for cholecystitis and Gen. surgery is on the case, currently recommending medical treatment 3 The patient has shown clinical improvement, the patient white count has normalized, patient will be continued on meropenem and continue supportive care Time with Patient: Less than 30
[2022-10-03] MEDS: SODIUM CHLORIDE 0.9% 1,000 ML IV SCH ×2 (15:52→23:47)
[2022-10-03] MEDS: LOSARTAN 50 MG TAB PO SCH (20:24)
[2022-10-03] MEDS: ATORVASTATIN 20 MG TAB PO SCH (20:24)
[2022-10-04] MEDS: HYDROcodone/APAP 7.5-325MG 1 EACH TAB PO PRN ×2 (00:45→19:38)
[2022-10-04] MEDS: HYDROmorphone 0.5 MG/0.5 ML SYRINGE IVP PRN ×5 (04:01→23:29)
[2022-10-04 06:22] LABS: Basophils # (A) 0.1 k/uL (0-0.2); Basophils % (A) 1 %; Eosinophils # (A) 0.4 k/uL (0-0.7); Eosinophils % (A) 4 %; HCT 43.2 % (39.0-53.0); HGB 14.9 gm/dL (13.0-17.5); Lymphocytes # (A) 2.3 k/uL (1.0-4.8); Lymphocytes % (A) 24 %; MCH 31.6 pg (25.0-35.0); MCHC 34.4 g/dL (31.0-37.0); MCV 91.9 fL (80.0-100.0); Mean Platelet Volume 7.2; Monocytes # (A) 0.5 k/uL (0-1.0); Monocytes % (A) 5 %; Neutrophils # (A) 6.3 k/uL (1.3-7.7); Neutrophils % (A) 65 %; Platelet Count 377 k/uL (150-450); RDW 11.7 % (11.5-15.5); WBC 9.8 k/uL (3.8-10.6)
[2022-10-04 06:37] LABS: ALT 276 U/L (4-49); AST 80 U/L (17-59); African American GFR (CKD) >90 (>60 ml/min/1.73 sqM); Albumin 3.4 g/dL (3.5-5.0); Albumin/Globulin Ratio 1.3; Alkaline Phosphatase 126 U/L (38-126); Anion Gap 3 mmol/L; Blood Urea Nitrogen 4 mg/dL (9-20); Calcium 8.5 mg/dL (8.4-10.2); Carbon Dioxide 36 mmol/L (22-30); Chloride 100 mmol/L (98-107); Globulin 2.7 g/dL; Glucose 105 mg/dL (74-99); Non-African American GFR(CKD) >90 (>60 ml/min/1.73 sqM); Potassium 5.4 mmol/L (3.5-5.1); Sodium 139 mmol/L (137-145); Total Bilirubin 0.6 mg/dL (0.2-1.3); Total Protein 6.1 g/dL (6.3-8.2)
[2022-10-04] MEDS: HEPARIN SODIUM,PORCINE/PF 5,000 UNIT/0.5 ML SYRINGE SQ SCH ×2 (08:03→20:28)
[2022-10-04] MEDS: DEXTROAMPHETAMINE PO SCH (08:04)
[2022-10-04] MEDS: AMPHETAMINE PO SCH (08:04)
[2022-10-04] MEDS: PANTOPRAZOLE 40 MG/10 ML VIAL IV SCH (09:05)
[2022-10-04] MEDS: MEROPENEM 1 GM in SODIUM CHLORIDE 0.9% 100 ML IVPB SCH ×3 (09:05→23:29)
[2022-10-04] MEDS: SODIUM CHLORIDE 0.9% 1,000 ML IV SCH ×3 (09:06→20:29)
[2022-10-04 11:29] VITALS: RESP 16
[2022-10-04] MEDS ORDERED: HEPARIN SODIUM,PORCINE 5,000 UNIT/ML 1 ML VIAL SQ ONE (11:36)
[2022-10-04] MEDS: ONDANSETRON 4 MG/2 ML VIAL IVP PRN (11:36)
[2022-10-04] MEDS ORDERED: LACTATED RINGERS 1,000 ML IV ONE (11:42)
[2022-10-04] MEDS ORDERED: SUCCINYLCHOLINE CHLORIDE 200 MG/10 ML VIAL IV ONE (11:48)
[2022-10-04] MEDS ORDERED: ROCURONIUM 10 MG/ML (5 ML VIAL) IV ONE (11:48)
[2022-10-04] MEDS ORDERED: KETOROLAC 15 MG/ML 1 ML VIAL ONE (11:48)
[2022-10-04] MEDS ORDERED: fentaNYL (PF) 50 MCG/ML 2 ML AMP ONE (11:48)
[2022-10-04] MEDS ORDERED: HYDROmorphone (PF) 1 MG/ML ONE (11:48)
[2022-10-04] MEDS ORDERED: PROPOFOL 10 MG/ML 20 ML VIAL IV ONE (11:48)
[2022-10-04] MEDS ORDERED: MIDAZOLAM 2 MG/2 ML VIAL ONE (11:48)
[2022-10-04] MEDS ORDERED: LIDOCAINE 2% INJ 20 MG/ML (2 ML VIAL) ONE (11:48)
[2022-10-04] MEDS ORDERED: NEOSTIGMINE 1 MG/ML 10 ML VIAL ONE (11:48)
[2022-10-04] MEDS ORDERED: GLYCOPYRROLATE 0.2 MG/ML 2 ML VIAL ONE (11:48)
[2022-10-04] MEDS ORDERED: BUPIVACAIN-EPI 0.25%-1:200,000 30 ML VIAL SQ ONE (12:01)
--- NOTE | 2022-10-04 12:41 | P.OP ---
Date of Procedure: 10/04/22 Preoperative Diagnosis: Cholecystitis Postoperative Diagnosis: Cholecystitis Procedure(s) Performed: Laparoscopic cholecystectomy Anesthesia: LENNIE Surgeon: Yanick Valencia Estimated Blood Loss (ml): 5 Pathology: other (Gallbladder) Condition: stable (All bladder) Disposition: PACU Description of Procedure: The patient was placed on the operating table. The patient received a general endotracheal tube anesthesia. The patients abdomen was prepped and draped in the usual sterile fashion. Through an infraumbilical stab incision, the fascia of the anterior abdominal wall was grasped with a pair of Kochers and then the Veress needle was placed in the peritoneal cavity. Position of the Veress needle was confirmed with positive drop test. The abdomen was then insufflated. After adequate insufflation, the 10 mm trocar was placed in the peritoneal cavity. Following this the laparoscope was placed in the peritoneal cavity. The patient was placed in the head-up, right side up position and then a 5 mm trocar was placed in the right lateral and right subcostal position under direct visualization. A 8 mm trocar was placed in the epigastric position. The gallbladder was grasped in the fundus and infundibulum. Traction on the gallbladder was placed in the lateral and the cephalad positions. The triangle of Calot was visualized.. The cystic duct was bluntly dissected until the union of the cystic duct and common bile duct was seen. A critical view of safety was achieved. The cystic duct was then divided and sealed with the Harmonic scissors. A PDS Endoloop was then placed throughout the cystic duct stump. The cystic artery divided and sealed with the Harmonic scissors. The gallbladder was then removed from the liver bed using Harmonic scissors. The gallbladder was then extracted through the epigastric port site. Operative field was checked for any bleeding spots and Harmonic scissors was used to coagulate the liver bed. The abdomen was irrigated. The trocars were removed. The skin was closed using interrupted 3-0 Vicryl suture. Dermabond dressing were applied. The patient tolerated the procedure well.
--- NOTE | 2022-10-04 13:44 | P.PN ---
Subjective From the records This is a 46-year-old male who was recently admitted with abdominal pain and found to have acute pancreatitis. Patient is being closely monitored with infectious disease and other consultations following as patient continues to hav e fevers and continued abdominal pain. Troponins were mildly elevated and cardiology evaluating the patient. We'll continue with empiric anabiotic's and continue gentle IV hydration. Patient with abdominal pain has been continued on clear liquids. Patient is afebrile today and continues with pain although denies chest pain or shortness of breath. Patient is also having bowel movements and voiding with no difficulties. Encouraged increase activity as tolerated and will continue with pain management. Will follow-up with repeat labs of amylase lipase and BMP. 09/30/2022 Patient is seen and evaluated in follow-up this morning continues to report abdominal pain scheduled to undergo the last part of the HIDA scan. General surgery along with infectious disease is following and patient is continued on antibiotics and blood cultures are negative. WBC trending up and is currently 13.55 today. Patient is afebrile for the last 24 hours. Potassium 3.3 and will replace per protocol. Patient's diet being decreased to clear liquids and will continue gentle IV hydration. Liver function labs are improving and lipase today is 1:15. Pro-calcitonin is 0.29. Patient needs encouragement with getting up and increasing activity as tolerated. 10/01/2022 Patient is seen and evaluated today continues to be sleeping but easily arousable. Patient reports his pain continues to persist although somewhat improved. Recommend limiting Dilaudid use as patient has been receiving 1 mg every 2 hours as needed. Patient reports to feeling hungry and diet being advanced per surgery. Patient has persistent on asking about the gallbladder and surgery recommending cholecystectomy on Tuesday. Will continue with antibiotics with ID following as well. Encouraged increase activity as tolerated and educated the patient on the importance of continuing with small frequent meals. Patient has been maintained on clear liquids until now. Patient instructed and educated on the importance to decrease diet is having increased abdominal pain. He is currently afebrile with no reports of chest pain or shortness of breath noted. No reports of nausea or vomiting noted. I'm resume the care of the patient today 10/02/2012 this is a pleasant 46 years old male who presents initially with abdominal pain and he has evidence of acute pancreatitis with elevated liver enzymes slightly trending up. Also he has some evidence of acute enterocolitis Patient is currently covered with meropenem and #75 mL/h Yesterday his diet was advanced but he was more abdominal pain today therefore he was kept on liquid diet with surgery team following closely. Also liver enzymes went up with AST 325 and ALT 460 but bilirubin is normal 0.5, liver enzymes were normal on admission. No vomiting, no diarrhea but is passing gas. Actually he did not have bowel movement. He rates his abdominal pain at 7/10 today. We are going to increase his normal saline 125 mL per hour, he is on Dilaudid for pain management I discussed with the patient and there is no GI service in this facility, I offered for him to transfer him to tertiary care center for high level of care, patient declined and he wants to stay in the hospital, problems and management plan discussed with the patient in details and he is agreeable 10/03/2022 His abdominal pain and symptoms are improving slightly today as well as liver enzymes. Vitals are stable No leukocytosis as the please see back to normal Plan for lap cholecystectomy tomorrow with surgery team 10/04/2022 Patient abdominal pain and symptoms improving but not completely resolving and still bothering him Liver enzymes trending down. Bilirubin is normal. WBCs normal Plan for laparoscopic cholecystectomy today Objective - Vital Signs Vital signs: Vital Signs Temp 96.8 F L 10/04/22 12:42 Pulse 67 10/04/22 13:35 Resp 16 10/04/22 13:35 BP 160/95 10/04/22 13:35 Pulse Ox 98 10/04/22 13:35 FiO2 Intake & Output 10/03/22 10/04/22 10/04/22 18:59 06:59 18:59 Intake Total 1180 2780 575 Output Total 5 Balance 1180 2780 570 Weight 126.099 kg Intake: IV 575 Intake, IV Titration 1350 Amount Meropenem 1 gm In Sodium 100 Chloride 0.9% 100 ml @ 33 .3 mls/hr IVPB Q8HR RAFAEL Rx#:[id number] Sodium Chloride 0.9% 1, 1250 000 ml @ 125 mls/hr IV . Q8H RAFAEL Rx#:[id number] Oral 1180 1430 Output: Estimated Blood Loss 5 Other: Voiding Method Toilet Toilet Toilet # Voids 2 - Exam GENERAL: The patient is alert and oriented x3, not in any acute distress. Well developed, well nourished. HEENT: Pupils are round and equally reacting to light. EOMI. No scleral icterus. No conjunctival pallor. Normocephalic, atraumatic. No pharyngeal erythema. No thyromegaly. CARDIOVASCULAR: S1 and S2 present. No murmurs, rubs, or gallops. PULMONARY: Chest is clear to auscultation, no wheezing or crackles. -ABDOMEN: Soft, right-sided abdominal tenderness with no guarding or rebound tenderness, nondistended, normoactive bowel sounds. No palpable organomegaly. MUSCULOSKELETAL: No joint swelling or deformity. EXTREMITIES: No cyanosis, clubbing, or pedal edema. NEUROLOGICAL: Gross neurological examination did not reveal any focal deficits. SKIN: No rashes. no petechiae. - Labs CBC & Chem 7: 10/04/22 05:31 10/04/22 08:10 Labs: Abnormal Lab Results - Last 24 Hours (Table) 10/04/22 Range/Units 05:31 Potassium 5.4 H (3.5-5.1) mmol/L Carbon Dioxide 36 H (22-30) mmol/L BUN 4 L (9-20) mg/dL Glucose 105 H (74-99) mg/dL AST 80 H (17-59) U/L ALT 276 H (4-49) U/L Total Protein 6.1 L (6.3-8.2) g/dL Albumin 3.4 L (3.5-5.0) g/dL Microbiology - Last 24 Hours (Table) 09/27/22 13:03 Blood Culture - Final Blood No Growth after 144 hours Assessment and Plan Assessment: Acute pancreatitis Acute cholecystitis (suspected on HIDA scan because of nonvisualization of the gallbladder) status post laparoscopic cholecystectomy 10/04 Acute enterocolitis Transaminitis with trending up liver enzymes, currently improving Plan: Continue with bowel rest, currently on liquid diet with surgery team following Pain management IV fluids Surgery team consult Infectious disease consult. Laparoscopic Cholecystectomy on Thursday 10/04 Labs and medication were reviewed.. Continue same treatment. Continue with symptomatic treatment. Resume home medication. Monitor labs and vitals. DVT and GI prophylaxis. Further recommendations as per clinical course of the patient DVT prophylaxis: Subcutaneous heparin GI Prophylaxis: Ppi PT/OT: Pending Prognosis is guarded
[2022-10-04] MEDS: LOSARTAN 50 MG TAB PO SCH (20:28)
[2022-10-04] MEDS: ATORVASTATIN 20 MG TAB PO SCH (20:28)
--- NOTE | 2022-10-04 23:03 | P.PN ---
Subjective Progress Note Date: 10/04/22 Principal diagnosis: Pancreatitis Patient is a 46-year-old male presenting to the hospital with acute abdominal pain has been diagnosed with acute pancreatitis subsequently did have a low-grade fever patient did have elevated white count admission subsequently normalized and repeat CAT scan did show improvement in his pancreatitis and no evidence of any necrosis or pseudocyst formation. Patient is scheduled for cholecystectomy this afternoon On today's evaluation that is 10/04/2022, the patient remains to be afebrile, the patient abdominal pain has decreased in intensity, patient denies having any nausea no vomiting , the patient denies chest pain shortness of breath or cough Objective - Vital Signs Vital signs: Vital Signs Temp 98.2 F 10/04/22 11:11 Pulse 87 10/04/22 11:27 Resp 16 10/04/22 11:27 BP 156/98 10/04/22 11:27 Pulse Ox 97 10/04/22 11:27 FiO2 Intake & Output 10/03/22 10/04/22 10/04/22 18:59 06:59 18:59 Intake Total 1180 2780 500 Output Total 5 Balance 1180 2780 495 Intake: IV 500 Intake, IV Titration 1350 Amount Meropenem 1 gm In Sodium 100 Chloride 0.9% 100 ml @ 33 .3 mls/hr IVPB Q8HR RAFAEL Rx#:[id number] Sodium Chloride 0.9% 1, 1250 000 ml @ 125 mls/hr IV . Q8H RAFAEL Rx#:[id number] Oral 1180 1430 Output: Estimated Blood Loss 5 Other: Voiding Method Toilet Toilet Toilet # Voids 2 - Exam GENERAL DESCRIPTION: Middle-aged male lying in bed, no distress. No tachypnea or accessory muscle of respiration use. LUNGS: Unlabored breathing. Clear to auscultation anteriorly. No wheeze or crac kle. HEART: S1, S2, regular rate and rhythm. No loud murmur ABDOMEN: Soft, mild epigastric EXTREMITIES: No edema of feet. - Labs CBC & Chem 7: 10/04/22 05:31 10/04/22 08:10 Labs: Abnormal Lab Results - Last 24 Hours (Table) 10/04/22 Range/Units 05:31 Potassium 5.4 H (3.5-5.1) mmol/L Carbon Dioxide 36 H (22-30) mmol/L BUN 4 L (9-20) mg/dL Glucose 105 H (74-99) mg/dL AST 80 H (17-59) U/L ALT 276 H (4-49) U/L Total Protein 6.1 L (6.3-8.2) g/dL Albumin 3.4 L (3.5-5.0) g/dL Microbiology - Last 24 Hours (Table) 09/27/22 13:03 Blood Culture - Final Blood No Growth after 144 hours Assessment and Plan (1) Pancreatitis Current Visit: Yes Status: Acute Code(s): K85.90 - ACUTE PANCREATITIS WITHOUT NECROSIS OR INFECTION, UNSP SNOMED Code(s): 21072364 Plan: 1patient presented to hospital abdominal pain has been diagnosed with acute pancreatitis ultrasound did not show evidence of gallstones and patient did have normal triglyceride levels did have a low-grade fever however repeat CT did not show any evidence of worsening liver improvement and no evidence of any pancreatic pseudocyst or necrotizing infection 2-patient did have a HIDA scan that has been suspicious for cholecystitis and Gen. surgery is on the case, currently recommending medical treatment 3 The patient slowly clinically improving, the patient white count has normalized, patient to continue with the current treatment of meropenem and monitor clinical course closely Time with Patient: Less than 30
[2022-10-05] MEDS: HYDROcodone/APAP 7.5-325MG 1 EACH TAB PO PRN (02:51)
[2022-10-05] MEDS: SODIUM CHLORIDE 0.9% 1,000 ML IV SCH ×2 (04:36→14:28)
[2022-10-05] MEDS: HYDROmorphone 0.5 MG/0.5 ML SYRINGE IVP PRN (06:38)
[2022-10-05] MEDS: DEXTROAMPHETAMINE PO SCH (08:17)
[2022-10-05] MEDS: AMPHETAMINE PO SCH (08:17)
[2022-10-05 09:01] LABS: Basophils # (A) 0.03 X 10*3/uL (0.00-0.10); Basophils % (A) 0.2 %; Eosinophils # (A) 0.18 X 10*3/uL (0.04-0.35); Eosinophils % (A) 1.4 %; HCT 41.8 % (39.6-50.0); HGB 14.3 g/dL (13.0-17.0); Immature Grans, Automated 1.5 %; Lymphocytes # (A) 2.26 X 10*3/uL (0.90-5.00); Lymphocytes % (A) 17.5 %; MCHC 34.2 g/dL (32.0-37.0); MCV 90.5 fL (80.0-97.0); Monocytes # (A) 0.75 X 10*3/uL (0.20-1.00); Monocytes % (A) 5.8 %; NRBC Per 100 WBC 0 /100 WBCS (0.0-0.0); Neutrophils % (A) 73.6 %; Platelet Count 410 X 10*3/uL (140-440); RBC 4.62 X 10*6/uL (4.40-5.60); RDW 11.9 % (11.5-14.5); WBC 12.92 X 10*3/uL (4.50-10.00)
[2022-10-05 09:29] LABS: ALT 213 U/L (10-49); AST 70 U/L (14-35); African American GFR (CKD) 104.1 (60.0-200.0); Albumin 3.6 g/dL (3.8-4.9); Alkaline Phosphatase 129 U/L (41-126); Bilirubin, Conjugated <0.20 mg/dL (0.20-0.40); Blood Urea Nitrogen 7.7 mg/dL (9.0-27.0); Calcium 8.9 mg/dL (8.7-10.3); Carbon Dioxide 31.1 mmol/L (20.0-27.5); Chloride 98 mmol/L (96-109); Globulin 2.4 g/dL (1.6-3.3); Glucose 113 mg/dL (70-110); Non-African American GFR(CKD) 89.9 (60.0-200.0); Potassium 4.2 mmol/L (3.5-5.5); Sodium 139 mmol/L (135-145)
[2022-10-05] MEDS ORDERED: amLODIPine 5 MG TAB PO SCH (09:45)
[2022-10-05] MEDS: HEPARIN SODIUM,PORCINE/PF 5,000 UNIT/0.5 ML SYRINGE SQ SCH (09:46)
[2022-10-05] MEDS: PANTOPRAZOLE 40 MG/10 ML VIAL IV SCH (09:47)
[2022-10-05] MEDS: MEROPENEM 1 GM in SODIUM CHLORIDE 0.9% 100 ML IVPB SCH ×2 (09:47→17:30)
--- NOTE | 2022-10-05 12:56 | P.PN ---
Subjective Progress Note Date: 10/05/22 CHIEF COMPLAINT: Pancreatitis HISTORY OF PRESENT ILLNESS: Patient is postop day #1 status post laparoscopic cholecystectomy. Patient's pain is better today. He is tolerating diet. Afebrile. He has been up and ambulating. He is having flatus. WBC is 12.9 to Hgb 14.3 platelets 410 total bili 0.3 LFTs trending down AST 70 ALT 213 alk phos 129 Patient seen and examined with Dr. hankins PHYSICAL EXAM: VITAL SIGNS: Reviewed. GENERAL: Well-developed in no acute distress. HEENT: No sclera icterus. Extraocular movements grossly intact. Moist buccal mucosa. Head is atraumatic, normocephalic. ABDOMEN: soft. Nondistended. Incision sites clean dry and intact. Minimal tenderness at incision sites NEUROLOGIC: Alert and oriented. Cranial nerves II through XII grossly intact. ASSESSMENT: 1. Acute pancreatitis exact etiology unclear 2. Cholecystitis status post laparoscopic cholecystectomy PLAN: -Patient is stable from surgical standpoint for discharge -Continue oral pain medication as needed -Discharge antibiotics per ID service Physician Crime Prevention Worker note has been reviewed by physician. Signing provider agrees with the documented findings, assessment, and plan of care. Objective - Vital Signs Vital signs: Vital Signs Temp 98.3 F 10/05/22 04:42 Pulse 78 10/05/22 09:32 Resp 16 10/05/22 08:35 BP 150/89 10/05/22 10:00 Pulse Ox 97 10/05/22 04:42 FiO2 Intake & Output 10/04/22 10/05/22 10/05/22 18:59 06:59 18:59 Intake Total 815 720 Output Total 5 Balance 810 720 Weight 126.099 kg Intake: IV 575 Oral 240 720 Output: Estimated Blood Loss 5 Other: Voiding Method Toilet Toilet Toilet # Voids 4 3 - Labs CBC & Chem 7: 10/05/22 05:51 10/05/22 05:51 Labs: Abnormal Lab Results - Last 24 Hours (Table) 10/05/22 10/05/22 Range/Units 05:51 05:51 WBC 12.92 H (4.50-10.00) X 10*3/uL MPV 9.0 L (9.5-12.2) fL Immature Gran # 0.20 H (0.00-0.04) X 10*3/uL Neutrophils # 9.50 H (1.80-7.70) X 10*3/uL Carbon Dioxide 31.1 H (20.0-27.5) mmol/L Anion Gap 9.90 L (10.00-18.00) mmol/L BUN 7.7 L (9.0-27.0) mg/dL BUN/Creatinine Ratio 7.70 L (12.00-20.00) Ratio Glucose 113 H (70-110) mg/dL Conjugated Bilirubin <0.20 L (0.20-0.40) mg/dL AST 70 H (14-35) U/L ALT 213 H (10-49) U/L Alkaline Phosphatase 129 H (41-126) U/L Total Protein 6.0 L (6.2-8.2) g/dL Albumin 3.6 L (3.8-4.9) g/dL Albumin/Globulin Ratio 1.50 L (1.60-3.17) g/dL
[2022-10-05 13:22] VITALS: BP 147/103; PULSE 96; TEMP 98
--- NOTE | 2022-10-05 17:32 | P.PN ---
Subjective Progress Note Date: 10/05/22 Principal diagnosis: Pancreatitis Patient is a 46-year-old male presenting to the hospital with acute abdominal pain has been diagnosed with acute pancreatitis subsequently did have a low-grade fever patient did have elevated white count admission subsequently normalized and repeat CAT scan did show improvement in his pancreatitis and no evidence of any necrosis or pseudocyst formation. Patient is scheduled for cholecystectomy this afternoon On today's evaluation that is 10/05/2022, the patient continues to be afebrile, the patient abdominal pain has decreased in intensity, patient denies having any nausea no vomiting , tolerating his diet, the patient denies chest pain shortness of breath or cough, feeling better Objective - Vital Signs Vital signs: Vital Signs Temp 98.3 F 10/05/22 04:42 Pulse 78 10/05/22 09:32 Resp 16 10/05/22 08:35 BP 154/104 10/05/22 09:32 Pulse Ox 97 10/05/22 04:42 FiO2 Intake & Output 10/04/22 10/05/22 10/05/22 18:59 06:59 18:59 Intake Total 815 720 Output Total 5 Balance 810 720 Weight 126.099 kg Intake: IV 575 Oral 240 720 Output: Estimated Blood Loss 5 Other: Voiding Method Toilet Toilet Toilet # Voids 4 3 - Exam GENERAL DESCRIPTION: Middle-aged male lying in bed, no distress. No tachypnea or accessory muscle of respiration use. LUNGS: Unlabored breathing. Clear to auscultation anteriorly. No wheeze or crackle. HEART: S1, S2, regular rate and rhythm. No loud murmur ABDOMEN: Soft, mild epigastric EXTREMITIES: No edema of feet. - Labs CBC & Chem 7: 10/05/22 05:51 10/05/22 05:51 Labs: Abnormal Lab Results - Last 24 Hours (Table) 10/05/22 10/05/22 Range/Units 05:51 05:51 WBC 12.92 H (4.50-10.00) X 10*3/uL MPV 9.0 L (9.5-12.2) fL Immature Gran # 0.20 H (0.00-0.04) X 10*3/uL Neutrophils # 9.50 H (1.80-7.70) X 10*3/uL Carbon Dioxide 31.1 H (20.0-27.5) mmol/L Anion Gap 9.90 L (10.00-18.00) mmol/L BUN 7.7 L (9.0-27.0) mg/dL BUN/Creatinine Ratio 7.70 L (12.00-20.00) Ratio Glucose 113 H (70-110) mg/dL Conjugated Bilirubin <0.20 L (0.20-0.40) mg/dL AST 70 H (14-35) U/L ALT 213 H (10-49) U/L Alkaline Phosphatase 129 H (41-126) U/L Total Protein 6.0 L (6.2-8.2) g/dL Albumin 3.6 L (3.8-4.9) g/dL Albumin/Globulin Ratio 1.50 L (1.60-3.17) g/dL Assessment and Plan (1) Pancreatitis Current Visit: Yes Status: Acute Code(s): K85.90 - ACUTE PANCREATITIS WITHOUT NECROSIS OR INFECTION, UNSP SNOMED Code(s): 15833398 Plan: 1patient presented to hospital abdominal pain has been diagnosed with acute pancreatitis ultrasound did not show evidence of gallstones and patient did have normal triglyceride levels did have a low-grade fever however repeat CT did not show any evidence of worsening liver improvement and no evidence of any pancreatic pseudocyst or necrotizing infection 2-patient did have a HIDA scan that has been suspicious for cholecystitis and Gen. surgery is on the case, patient is status post cholecystectomy completed on 10/04/2022 3 The patient continue show slow clinical improvement, patient will continue with meropenem however plan to finish therapy with oral antibiotics Time with Patient: Less than 30
--- NOTE | 2022-10-05 21:35 | P.DS ---
Providers Date of admission: 09/25/22 11:13 Attending physician: Tiffany Agudelo MD Consults: 09/25/22 11:13 Consult Physician Routine Consulting Provider: Yanick Valencia Consult Reason/Comments: pancreatitis Do you want consulting provider notified?: Yes 09/27/22 14:12 Consult Physician Routine Consulting Provider: Sánchez Adames Consult Reason/Comments: tachy , elevated troponins Do you want consulting provider notified?: Yes 09/28/22 12:13 Consult Physician Routine Consulting Provider: Clarita Concepcion Consult Reason/Comments: sepsis Do you want consulting provider notified?: Yes Primary care physician: Tray Laguerre Hospital Course: diagnoses: Acute pancreatitis Acute cholecystitis (suspected on HIDA scan because of nonvisualization of the gallbladder) status post laparoscopic cholecystectomy 10/04 Acute enterocolitis Transaminitis with trending up liver enzymes, currently improving Hospital course: This is a 46-year-old male who was recently admitted with abdominal pain and f ound to have acute pancreatitis.as well as CT of the abdomen showing acute pancreatitis new anterior colitis disease, liver enzymes were trending up, HIDA scan failed to visualize the gallbladder, patient was treated initially conservatively with meropenem and IV fluids and followed closely by ID team and surgery team, patient remains symptomatic, her surgery team evaluation patient underwent laparoscopic cholecystectomy yesterday, he tolerated the procedure today. Today is significantly improved, is fully awake and oriented, abdominal pain significantly improved, he tolerates that well and was having bowel movement. He denies any other new complaints. No chest pain or dyspnea. No dysuria or dizziness or headache or weakness. Patient was cleared for discharge by both surgery team and ID team. Discharge patient on 7 days of Augmentin per ID team recommendation react Problems and management plan were discussed with the patient and he verbalized understanding and acceptance Patient was found stable and can be discharged home in guarded prognosis however he needs follow-up as an outpatient. Patient was instructed to follow up with PCP Dr. Adam one week and patient agrees patient was instructed to follow up with Dr. Valencia surgeon in 1 week and he agrees Physical exam Gen: patient is a AAOx3, no distress CVS: S1-S2, RRR, no murmur Lungs: B/L CTA, no wheezing -Abdomen: soft, no distention, no tenderness, positive bowel sounds. laparoscopic wounds are closed and healing Extremity: no leg edema or induration Time spent more than 35 minutes Patient Condition at Discharge: Fair Plan - Discharge Summary Discharge Rx Participant: No New Discharge Prescriptions: New Pantoprazole Sodium [Protonix] 40 mg PO DAILY #30 tab Ibuprofen [Motrin] 600 mg PO Q8HR PRN #30 tab PRN Reason: Pain HYDROcodone/APAP 5-325MG [[place] 5-325] 1 tab PO Q6HR PRN #6 tab PRN Reason: Pain Amoxic-Pot Clav 875-125Mg [Augmentin 875-125] 1 tab PO BID 7 Days #14 tab amLODIPine [Norvasc] 5 mg PO DAILY 30 Days #30 tab Continue Zolpidem [Ambien] 10 mg PO HS Dextroamphetamine/Amphetamine [Adderall Xr 15 mg Capsule] 15 mg PO DAILY Losartan Potassium 100 mg PO HS Atorvastatin [Lipitor] 20 mg PO HS Discontinued Omeprazole 20 mg PO HS Discharge Medication List Atorvastatin [Lipitor] 20 mg PO HS 09/25/22 [History] Dextroamphetamine/Amphetamine [Adderall Xr 15 mg Capsule] 15 mg PO DAILY 1 11/26/21 [History] Losartan Potassium 100 mg PO HS 09/25/22 [History] Zolpidem [Ambien] 10 mg PO HS 09/25/22 [History] HYDROcodone/APAP 5-325MG [[place] 5-325] 1 tab PO Q6HR PRN #6 tab 09/27/22 [Rx] Pantoprazole Sodium [Protonix] 40 mg PO DAILY #30 tab 09/27/22 [Rx] Amoxic-Pot Clav 875-125Mg [Augmentin 875-125] 1 tab PO BID 7 Days #14 tab 10/05/22 [Rx] Ibuprofen [Motrin] 600 mg PO Q8HR PRN #30 tab 10/05/22 [Rx] amLODIPine [Norvasc] 5 mg PO DAILY 30 Days #30 tab 10/05/22 [Rx] Follow up Appointment(s)/Referral(s): Tray Laguerre MD [Primary Care Provider] - 10/07/22 10:20 am (We recommend to check your blood pressure with your doctor We recommend to check your blood test with your doctor including white cell count, liver function test) Sánchez Adames MD [STAFF PHYSICIAN] - 3 Weeks Yanick Vaelncia MD [STAFF PHYSICIAN] - 10/12/22 10:15 am Patient Instructions/Handouts: *Surgery [facility] - ([facility]) Laparoscopic Cholecystectomy, Pancreatitis (DC), Laparoscopic Cholecystectomy (DC) Activity/Diet/Wound Care/Special Instructions: No driving while taking [place] No lifting over 10 pounds shower daily. No soaking or tub baths for 2 weeks Very light activity until you are reevaluated at your follow up appointment with your surgeon Discharge Disposition: HOME SELF-CARE
--- NOTE | 2022-10-07 06:46 | CDI ---
Documentation Clarification Form Date: 10/07/22 From: Katina Gould Admit Date: 09/25/2022 11:13:00 AM Patient Name: Ed Shi Visit Number: [id number] Discharge Date: 10/05/2022 06:01:00 PM ATTENTION: The Clinical Documentation Specialists (CDI) and [facility] Coding Staff appreciate your assistance in clarifying documentation. Please respond to the clarification below the line at the bottom and electronically sign. The CDI & [facility] Coding staff will review the response and follow-up if needed. Please note: Queries are made part of the Legal Health Record. If you have any questions, please contact the author of this message via ITS. Dr. Freed E Sheet, Possible sepsis is documented in the H&P and progress notes, but is not noted in the discharge summary. Clarification is requested. History/Risk Factors: acute pancreatitis, acute cholecystitis, HTN, HLD, ADHD, obesity Clinical Indicators: WBC 17.7. Neutrophils 11.1, CRP 13.30, Prolcalcitonin 0.29 Vital signs: (09/27) T 100.5, p 114, R 20, BP 133/86, O2 sat 93 (RA) Treatment: IV Meropenem, (09/27) Please clarify if the diagnosis is: [ ] Sepsis not POA [ ] Sepsis POA [ ] Sepsis ruled out [ ] Other condition, please specify [ ] Unable to determine Mild sepsis with leukocytosis and fever MTDD
== END 2022-10-05 18:01 | disposition home or self-care (01) | DRG 853 ==
LOC: EC 07:59 → 5NMEDONC 11:13
PROVIDERS: ADMIT Internal Medicine; ATTEND Internal Medicine
PROC: 0FT44ZZ Resection of Gallbladder, Percutaneous Endoscopic Approach (ICD-10-PCS; principal; 2022-10-04 13:30)
DX: A41.9 Sepsis, unspecified organism (principal); K85.90 Acute pancreatitis without necrosis or infection, unspecified; K56.7 Ileus, unspecified; K81.0 Acute cholecystitis; K75.9 Inflammatory liver disease, unspecified; Z28.310 Unvaccinated for COVID-19; K52.9 Noninfective gastroenteritis and colitis, unspecified; E87.6 Hypokalemia; I34.0 Nonrheumatic mitral (valve) insufficiency; K21.9 Gastro-esophageal reflux disease without esophagitis; E78.5 Hyperlipidemia, unspecified; I10 Essential (primary) hypertension; F90.9 Attention-deficit hyperactivity disorder, unspecified type; R77.8 Other specified abnormalities of plasma proteins; E66.9 Obesity, unspecified; Z68.36 Body mass index [BMI] 36.0-36.9, adult; Z79.899 Other long term (current) drug therapy; Z71.3 Dietary counseling and surveillance
CPT/HCPCS: 36415; 74176; 74177; 76705; 78226; 80048; 80053; 80061; 80076; 82150; 83615; 83690; 83735; 84132; 84145; 84484; 85025; 85610; 85730; 86140; 87040; 88304; 93005; 93306; 96374; 96375; 96376; 99285

== ENCOUNTER 2023-11-16 11:57 | Emergency (ER) | payer BC ==
--- NOTE | 2023-11-16 12:13 | ED ---
Dizziness HPI - General Source: patient, family, RN notes reviewed <Ariadna Marr - Last Filed: 11/16/23 17:37> <Olya Cruz - Last Filed: 11/16/23 23:20> - General Stated Complaint: dizzy L side pain Time Seen by Provider: 11/16/23 12:11 - History of Present Illness Initial Comments: Patient is a 48-year-old male presenting to the ER with a chief complaint of dizziness. Patient also was endorsing left sided flank/abdominal pain. Patient reports that he feels dizzy and dehydrated. He states he feels that if he sits down he is going to pass out. He states for the past two weeks he feels a pain on the right side of his head and he feels lightheaded. Denies any fevers, chills, chest pain, shortness of breath. (Ariadna Marr) 48-year-old male presents to the emergency department for evaluation of lightheadedness. Patient states that this started around 2 days ago while he was at the gym. He states that he had been lifting heavy weights and then shor tly after this started feeling lightheaded. He does report that he feels like he pulled something in his left side during this time. He also endorses that he may have been a little bit dehydrated when this came on. He states that he hydrated with some Powerade following this and the episode resolved. He reports this happened again while he walked into the bank. He reports that he also felt he may have been a little dehydrated at that time as well. He admits to starting a new diet and losing weight recently due to this. He denies any other associated symptoms with this. Denies fever, chills, chest pain, shortness of breath, nausea, vomiting. (Olya Cruz) - Related Data Home Medications Medication Instructions Recorded Confirmed Atorvastatin [Lipitor] 20 mg PO HS 09/25/22 09/25/22 Dextroamphetamine/Amphetamine 15 mg PO DAILY 09/25/22 09/25/22 [Adderall Xr 15 mg Capsule] Losartan Potassium 100 mg PO HS 09/25/22 09/25/22 Zolpidem [Ambien] 10 mg PO HS 09/25/22 09/25/22 Previous Rx's Medication Instructions Recorded HYDROcodone/APAP 5-325MG [[place] 1 tab PO Q6HR PRN #6 tab 09/27/22 5-325] Pantoprazole Sodium [Protonix] 40 mg PO DAILY #30 tab 09/27/22 Amoxic-Pot Clav 875-125Mg 1 tab PO BID 7 Days #14 tab 10/05/22 [Augmentin 875-125] Ibuprofen [Motrin] 600 mg PO Q8HR PRN #30 tab 10/05/22 amLODIPine [Norvasc] 5 mg PO DAILY 30 Days #30 tab 10/05/22 Allergies Allergy/AdvReac Type Severity Reaction Status Date / Time Milk Containing Products AdvReac Swelling Verified 11/16/23 13:26 (Dairy) [Dairy] Review of Systems ROS Other: All systems not noted in ROS Statement are negative. <Ariadna Marr - Last Filed: 11/16/23 17:37> ROS Other: All systems not noted in ROS Statement are negative. <Olya Cruz - Last Filed: 11/16/23 23:20> ROS Statement: Those systems with pertinent positive or pertinent negative responses have been documented in the HPI. Past Medical History Past Medical History: GERD/Reflux, Hyperlipidemia, Hypertension History of Any Multi-Drug Resistant Organisms: None Reported Past Surgical History: No Surgical Hx Reported Past Anesthesia/Blood Transfusion Reactions: No Reported Reaction Smoking Status: Never smoker - Past Family History Mother Family Medical History: Diabetes Mellitus Father Additional Family Medical History / Comment(s): mental illness <Ariadna Marr - Last Filed: 11/16/23 17:37> General Exam <Ariadna Marr - Last Filed: 11/16/23 17:37> Limitations: no limitations General appearance: alert, in no apparent distress Head exam: Present: atraumatic, normocephalic, normal inspection Eye exam: Present: normal appearance, PERRL, EOMI. Absent: scleral icterus, co njunctival injection, periorbital swelling ENT exam: Present: normal exam, mucous membranes moist Neck exam: Present: normal inspection, full ROM. Absent: tenderness, meningismus, lymphadenopathy Respiratory exam: Present: normal lung sounds bilaterally. Absent: respiratory distress, wheezes, rales, rhonchi, stridor Cardiovascular Exam: Present: regular rate, normal rhythm, normal heart sounds. Absent: systolic murmur, diastolic murmur, rubs, gallop, clicks GI/Abdominal exam: Present: soft, normal bowel sounds. Absent: distended, tenderness, guarding, rebound, rigid Extremities exam: Present: normal inspection, full ROM, normal capillary refill. Absent: tenderness, pedal edema, joint swelling, calf tenderness Back exam: Present: normal inspection, full ROM. Absent: tenderness Neurological exam: Present: alert, oriented X3, CN II-XII intact, normal gait. Absent: motor sensory deficit Psychiatric exam: Present: normal affect, normal mood Skin exam: Present: warm, dry, intact, normal color. Absent: rash <Olya Cruz - Last Filed: 11/16/23 23:20> - General Exam Comments Initial Comments: Visual Physical Exam General: Well-appearing, nontoxic, no acute distress. Head: Normocephalic, atraumatic Eyes: PERRLA, EOMI ENT: Airway patent Chest: Nonlabored breathing Skin: No visual rash, normal skin tone Neuro: Alert and oriented 3 Musculoskeletal: No gross abnormalities (Ariadna Marr) Course Vital Signs 11/16/23 11/16/23 13:17 21:23 Temperature 97.3 F L 97.9 F Pulse Rate 82 64 Respiratory 18 16 Rate Blood Pressure 146/93 132/80 O2 Sat by Pulse 96 95 Oximetry Medical Decision Making - Lab Data Result diagrams: 11/16/23 12:55 11/16/23 12:55 <Ariadna Marr - Last Filed: 11/16/23 17:37> - Lab Data Result diagrams: 11/16/23 12:55 11/16/23 12:55 <Olya Cruz - Last Filed: 11/16/23 23:20> - Medical Decision Making I performed the quick note portion of the exam. Electronically signed by Ariadna Marr PA-C (Ariadna Marr) Was pt. sent in by a medical professional or institution ([facility], [employer], urgent care, hospital, or fci...) When possible be specific @ -No Did you speak to anyone other than the patient for history (EMS, parent, family, police, friend...)? What history was obtained from this source @ -No Did you review nursing and triage notes (agree or disagree)? Why? @ -I reviewed and agree with nursing and triage notes Were old charts reviewed (outside hosp., previous admission, EMS record, old EKG, old radiological studies, urgent care reports/EKG's, fci records)? Report findings @ -No old charts were reviewed Differential Diagnosis (chest pain, altered mental status, abdominal pain women, abdominal pain men, vaginal bleeding, weakness, fever, dyspnea, syncope, headache, dizziness, GI bleed, back pain, seizure, CVA, palpatations, mental health, musculoskeletal)? @ -Differential Dizziness: Benign paroxysmal positional Vertigo, Menieres disease, otitis media, acoustic neuroma, vertebrobasilar insufficiency, cerebellar stroke, encephalitis, hypovolemic, arrhythmia, coronary artery syndrome, anemia, this is not meant to be an all-inclusive list EKG interpreted by me (3pts min.). @ -EKG at 1243 shows sinus rhythm with one PVC, rate 86, OR 143, QRS 96, QTQTc [id number] X-rays interpreted by me (1pt min.). @ -X-ray obtained shows no acute process CT interpreted by me (1pt min.). @ -CT brain shows no acute intracranial hemorrhage U/S interpreted by me (1pt. min.). @ -None done What testing was considered but not performed or refused? (CT, X-rays, U/S, labs)? Why? @ -None What meds were considered but not given or refused? Why? @ -None Did you discuss the management of the patient with other professionals (professionals i.e. DrMiguel Angel, PA, B[employer]BIN INSPECTOR, lab, RT, psych nurse, clinical social work therapist, buckle attaching machine operator, teacher, equal opportunity officer, correctional case records supervisor)? Give summary @ -No Was smoking cessation discussed for >3mins.? @ -No Was critical care preformed (if so, how long)? @ -No Were there social determinants of health that impacted care today? How? (Homelessness, low income, unemployed, alcoholism, drug addiction, transportation, low edu. Level, literacy, decrease access to med. care, detention, rehab)? @ -No Was there de-escalation of care discussed even if they declined (Discuss DNR or withdrawal of care, Hospice)? DNR status @ -No What co-morbidities impacted this encounter? (DM, HTN, Smoking, COPD, CAD, Cancer, CVA, ARF, Chemo, Hep., AIDS, mental health diagnosis, sleep apnea, morbid obesity)? @ -None Was patient admitted / discharged? Hospital course, mention meds given and route, prescriptions, significant lab abnormalities, going to OR and other pertinent info. @ -Discharge. Patient presented to the emergency department for evaluation of lightheadedness. Laboratory studies obtained. All are essentially unremarkable including 2 negative troponins and negative D-dimer. Normal WBC, hemoglobin, BUN/creatinine. Patient's LFTs are slightly elevated which he has a history of. UA negative for nitrite, leukocyte esterase. COVID, influenza, RSV negative. Chest x-ray shows no acute process. CT brain shows no acute intracranial hemorrhage. Discussed findings of laboratory studies and imaging. Patient is feeling increasingly anxious because of the long wait. He is requesting anxiety medication. Patient was given a dose of Xanax. Discussed plan for discharge to which he is understanding and agreeable. Patient stable at time of discharge. Case discussed with Dr. Holbrook. Delayed disposition due to the patient being in the waiting room for 7 hours, D-dimer was added following my evaluation of the patient. Undiagnosed new problem with uncertain prognosis? @ -No Drug Therapy requiring intensive monitoring for toxicity (Heparin, Nitro, Insulin, Cardizem)? @ -No Were any procedures done? @ -No Diagnosis/symptom? @ -Lightheadedness Acute, or Chronic, or Acute on Chronic? @ -Acute Uncomplicated (without systemic symptoms) or Complicated (systemic symptoms)? @ -Uncomplicated Side effects of treatment? @ -No Exacerbation, Progression, or Severe Exacerbation? @ -No Poses a threat to life or bodily function? How? (Chest pain, USA, GA, pneumonia, PE, COPD, DKA, ARF, appy, cholecystitis, CVA, Diverticulitis, Homicidal, Suicidal, threat to staff... and all critical care pts) @ -No (Olya Cruz) - Lab Data Lab Results 11/16/23 11/16/23 11/16/23 Range/Units 12:55 12:55 12:55 WBC 8.6 (3.8-10.6) k/uL RBC 5.62 (4.30-5.90) m/uL Hgb 15.5 (13.0-17.5) gm/dL Hct 48.4 (39.0-53.0) % MCV 86.0 (80.0-100.0) fL MCH 27.6 (25.0-35.0) pg MCHC 32.1 (31.0-37.0) g/dL RDW 13.7 (11.5-15.5) % Plt Count 302 (150-450) k/uL MPV 7.9 PT (10.0-12.5) sec INR (<1.2) APTT (22.0-30.0) sec D-Dimer (<0.60) mg/L FEU Sodium 137 (137-145) mmol/L Potassium 4.3 (3.5-5.1) mmol/L Chloride 105 (98-107) mmol/L Carbon Dioxide 23 (22-30) mmol/L Anion Gap 9 mmol/L BUN 12 (9-20) mg/dL Creatinine 1.02 (0.66-1.25) mg/dL Est GFR (CKD-EPI)AfAm >90 (>60 ml/min/1.73 sqM) Est GFR (CKD-EPI)NonAf 87 (>60 ml/min/1.73 sqM) Glucose 74 (74-99) mg/dL Calcium 8.8 (8.4-10.2) mg/dL Total Bilirubin 0.8 (0.2-1.3) mg/dL AST 63 H (17-59) U/L ALT 75 H (4-49) U/L Alkaline Phosphatase 73 (38-126) U/L Troponin I (0.000-0.034) ng/mL Total Protein 7.0 (6.3-8.2) g/dL Albumin 4.5 (3.5-5.0) g/dL Urine Color Urine Appearance (Clear) Urine pH (5.0-8.0) Ur Specific [place] (1.001-1.035) Urine Protein (Negative) Urine Glucose (UA) (Negative) Urine Ketones (Negative) Urine Blood (Negative) Urine Nitrite (Negative) Urine Bilirubin (Negative) Urine Urobilinogen (<2.0) mg/dL Ur Leukocyte Esterase (Negative) Influenza Type A (PCR) Not Detected (Not Detectd) Influenza Type B (PCR) Not Detected (Not Detectd) RSV (PCR) Not Detected (Not Detectd) SARS-CoV-2 (PCR) Not Detected (Not Detectd) 11/16/23 11/16/23 11/16/23 Range/Units 12:55 12:55 12:55 WBC (3.8-10.6) k/uL RBC (4.30-5.90) m/uL Hgb (13.0-17.5) gm/dL Hct (39.0-53.0) % MCV (80.0-100.0) fL MCH (25.0-35.0) pg MCHC (31.0-37.0) g/dL RDW (11.5-15.5) % Plt Count (150-450) k/uL MPV PT 11.5 (10.0-12.5) sec INR 1.1 (<1.2) APTT 27.3 (22.0-30.0) sec D-Dimer (<0.60) mg/L FEU Sodium (137-145) mmol/L Potassium (3.5-5.1) mmol/L Chloride (98-107) mmol/L Carbon Dioxide (22-30) mmol/L Anion Gap mmol/L BUN (9-20) mg/dL Creatinine (0.66-1.25) mg/dL Est GFR (CKD-EPI)AfAm (>60 ml/min/1.73 sqM) Est GFR (CKD-EPI)NonAf (>60 ml/min/1.73 sqM) Glucose (74-99) mg/dL Calcium (8.4-10.2) mg/dL Total Bilirubin (0.2-1.3) mg/dL AST (17-59) U/L ALT (4-49) U/L Alkaline Phosphatase (38-126) U/L Troponin I <0.012 (0.000-0.034) ng/mL Total Protein (6.3-8.2) g/dL Albumin (3.5-5.0) g/dL Urine Color Colorless Urine Appearance Clear (Clear) Urine pH 6.5 (5.0-8.0) Ur Specific [place] 1.001 (1.001-1.035) Urine Protein Negative (Negative) Urine Glucose (UA) Negative (Negative) Urine Ketones Negative (Negative) Urine Blood Negative (Negative) Urine Nitrite Negative (Negative) Urine Bilirubin Negative (Negative) Urine Urobilinogen <2.0 (<2.0) mg/dL Ur Leukocyte Esterase Negative (Negative) Influenza Type A (PCR) (Not Detectd) Influenza Type B (PCR) (Not Detectd) RSV (PCR) (Not Detectd) SARS-CoV-2 (PCR) (Not Detectd) 11/16/23 11/16/23 Range/Units 17:27 20:11 WBC (3.8-10.6) k/uL RBC (4.30-5.90) m/uL Hgb (13.0-17.5) gm/dL Hct (39.0-53.0) % MCV (80.0-100.0) fL MCH (25.0-35.0) pg MCHC (31.0-37.0) g/dL RDW (11.5-15.5) % Plt Count (150-450) k/uL MPV PT (10.0-12.5) sec INR (<1.2) APTT (22.0-30.0) sec D-Dimer <0.17 (<0.60) mg/L FEU Sodium (137-145) mmol/L Potassium (3.5-5.1) mmol/L Chloride (98-107) mmol/L Carbon Dioxide (22-30) mmol/L Anion Gap mmol/L BUN (9-20) mg/dL Creatinine (0.66-1.25) mg/dL Est GFR (CKD-EPI)AfAm (>60 ml/min/1.73 sqM) Est GFR (CKD-EPI)NonAf (>60 ml/min/1.73 sqM) Glucose (74-99) mg/dL Calcium (8.4-10.2) mg/dL Total Bilirubin (0.2-1.3) mg/dL AST (17-59) U/L ALT (4-49) U/L Alkaline Phosphatase (38-126) U/L Troponin I <0.012 (0.000-0.034) ng/mL Total Protein (6.3-8.2) g/dL Albumin (3.5-5.0) g/dL Urine Color Urine Appearance (Clear) Urine pH (5.0-8.0) Ur Specific [place] (1.001-1.035) Urine Protein (Negative) Urine Glucose (UA) (Negative) Urine Ketones (Negative) Urine Blood (Negative) Urine Nitrite (Negative) Urine Bilirubin (Negative) Urine Urobilinogen (<2.0) mg/dL Ur Leukocyte Esterase (Negative) Influenza Type A (PCR) (Not Detectd) Influenza Type B (PCR) (Not Detectd) RSV (PCR) (Not Detectd) SARS-CoV-2 (PCR) (Not Detectd) Disposition <Ariadna Marr - Last Filed: 11/16/23 17:37> Is patient prescribed a controlled substance at d/c from ED?: No <Olya Cruz - Last Filed: 11/16/23 23:20> Clinical Impression: Lightheadedness Disposition: HOME SELF-CARE Condition: Stable Additional Instructions: Please follow up with your primary care provider. Return to the emergency depa rtment for new or worsening symptoms. Referrals: Helder Daniels MD [Primary Care Provider] - 1-2 days
[2023-11-16 13:08] LABS: HCT 48.4 % (39.0-53.0); HGB 15.5 gm/dL (13.0-17.5); MCH 27.6 pg (25.0-35.0); MCHC 32.1 g/dL (31.0-37.0); Mean Platelet Volume 7.9; Platelet Count 302 k/uL (150-450); RBC 5.62 m/uL (4.30-5.90); RDW 13.7 % (11.5-15.5); WBC 8.6 k/uL (3.8-10.6)
[2023-11-16 13:09] LABS: Appearance,Urine Clear (Clear); Bilirubin,Urine Negative (Negative); Blood,Urine Negative (Negative); Color,Urine Colorless; Glucose,Urine (UA) Negative (Negative); Ketones,Urine Negative (Negative); Leukocyte Esterase,Urine Negative (Negative); Nitrite,Urine Negative (Negative); PH, Urine 6.5 (5.0-8.0); Protein,Urine Negative (Negative); Specific Gravity,Urine 1.001 (1.001-1.035); Urobilinogen,Urine <2.0 mg/dL (<2.0)
[2023-11-16 13:16] LABS: INR 1.1 (<1.2); Partial Thromboplastin Time 27.3 sec (22.0-30.0); Prothrombin Time 11.5 sec (10.0-12.5)
[2023-11-16 13:21] LABS: ALT 75 U/L (4-49); AST 63 U/L (17-59); African American GFR (CKD) >90 (>60 ml/min/1.73 sqM); Albumin 4.5 g/dL (3.5-5.0); Alkaline Phosphatase 73 U/L (38-126); Anion Gap 9 mmol/L; Blood Urea Nitrogen 12 mg/dL (9-20); Calcium 8.8 mg/dL (8.4-10.2); Carbon Dioxide 23 mmol/L (22-30); Chloride 105 mmol/L (98-107); Glucose 74 mg/dL (74-99); Non-African American GFR(CKD) 87 (>60 ml/min/1.73 sqM); Potassium 4.3 mmol/L (3.5-5.1); Sodium 137 mmol/L (137-145); Total Bilirubin 0.8 mg/dL (0.2-1.3)
--- NOTE | 2023-11-16 15:28 | XR ---
EXAMINATION TYPE: XR chest 2V DATE OF EXAM: 11/16/2023 COMPARISON: 08/28/2013 INDICATION: TECHNIQUE: Frontal and lateral views of the chest are obtained. FINDINGS: The heart size is normal. The pulmonary vasculature is normal. The lungs are clear. IMPRESSION: 1. No acute pulmonary process.
--- NOTE | 2023-11-16 19:22 | CT ---
EXAMINATION TYPE: CT brain wo con CT DLP: 1157.5 mGycm, Automated exposure control for dose reduction was used. DATE OF EXAM: 11/16/2023 6:48 PM COMPARISON: None. CLINICAL INDICATION:Male, 48 years old with history of lightheaded, near syncope TECHNIQUE: Brain: Axial CT images of the brain were obtained with coronal and sagittal reformats created and rev iewed. Contrast used: None. Oral contrast used: None. FINDINGS: Brain: Extra-axial spaces: No abnormal extra-axial fluid collections. Ventricular system: Within normal limits Cerebral parenchyma: No acute intraparenchymal hemorrhage or mass effect. The august-white junction is well differentiated. Cerebellum: Unremarkable. Mass effect: No evidence of midline shift. Intracranial vasculature: unremarkable Soft tissues: Normal. Calvarium/osseous structures: No depressed skull fracture. Paranasal sinuses and mastoid air cells: Mild scattered paranasal sinus disease. Visualized orbits: Orbital contents are intact. IMPRESSION: No acute intracranial process.
[2023-11-16] MEDS ORDERED: ALPRAZolam 0.25 MG TAB PO STA (21:12)
[2023-11-16 21:43] VITALS: BP 132/80; PULSE 64; RESP 16; TEMP 97.9
== END 2023-11-16 21:23 | disposition home or self-care (01) ==
LOC: EC 11:57
DX: R42 Dizziness and giddiness (principal); I49.3 Ventricular premature depolarization; I10 Essential (primary) hypertension; E78.5 Hyperlipidemia, unspecified; Z20.822 Contact with and (suspected) exposure to COVID-19; Z79.899 Other long term (current) drug therapy; Z91.011 Allergy to milk products
CPT/HCPCS: 36415; 70450; 71046; 80053; 81003; 84484; 85027; 85379; 85610; 85730; 87636; 93005; 99284

== ENCOUNTER 2023-12-22 17:30 | Emergency (ER) | payer OTHER, BC ==
--- NOTE | 2023-12-22 18:00 | ED ---
General Adult HPI - General Source: patient, RN notes reviewed Mode of arrival: ambulatory Limitations: no limitations <Olya Cruz - Last Filed: 12/22/23 17:57> <Ten Lawson - Last Filed: 12/22/23 21:12> - General Chief complaint: Allergic Reaction Stated complaint: Swelling in both hands Time Seen by Provider: 12/22/23 17:57 - History of Present Illness Initial comments: Quick note: 48-year-old male presents to the emergency department for evaluation of bilateral hand swelling and redness. Patient states that 3 months ago he was exposed to ethyl acetate at work on his hands. He notes that since then when he is at work his hands swell and become red. He notes that this resolves when he gets home typically. He believes that it is associated with heat. (Olya Cruz) This is a 48-year-old male who presents to the emergency department complaining that when he seems to go to work his hands get red his arms. His chest gets red and he becomes very warm. Patient states he thinks he has some to do with heat because when he goes into a colder environment it goes away. Patient also states it only appears to be happening at work. Patient does admit has been ongoing for about 3 months ever since he got some chemicals on his hand but that was 3 months ago. Patient states that he also started mushroom tea and some nitrates to have better blood flow to his body about 3 months ago as well. Patient has no difficulty breathing and no difficulty swallowing. (Ten Lawson) - Related Data Home Medications Medication Instructions Recorded Confirmed Atorvastatin [Lipitor] 20 mg PO HS 09/25/22 09/25/22 Dextroamphetamine/Amphetamine 15 mg PO DAILY 09/25/22 09/25/22 [Adderall Xr 15 mg Capsule] Losartan Potassium 100 mg PO HS 09/25/22 09/25/22 Zolpidem [Ambien] 10 mg PO HS 09/25/22 09/25/22 Previous Rx's Medication Instructions Recorded HYDROcodone/APAP 5-325MG [[place] 1 tab PO Q6HR PRN #6 tab 09/27/22 5-325] Pantoprazole Sodium [Protonix] 40 mg PO DAILY #30 tab 09/27/22 Amoxic-Pot Clav 875-125Mg 1 tab PO BID 7 Days #14 tab 10/05/22 [Augmentin 875-125] Ibuprofen [Motrin] 600 mg PO Q8HR PRN #30 tab 10/05/22 amLODIPine [Norvasc] 5 mg PO DAILY 30 Days #30 tab 10/05/22 predniSONE [Deltasone] 40 mg PO DAILY #8 tab 12/22/23 Allergies Allergy/AdvReac Type Severity Reaction Status Date / Time Milk Containing Products AdvReac Swelling Verified 12/22/23 17:53 (Dairy) [Dairy] Review of Systems ROS Other: All systems not noted in ROS Statement are negative. <Olya Cruz - Last Filed: 12/22/23 17:57> ROS Other: All systems not noted in ROS Statement are negative. <Ten Lawson - Last Filed: 12/22/23 21:12> ROS Statement: Those systems with pertinent positive or pertinent negative responses have been documented in the HPI. Past Medical History Past Medical History: GERD/Reflux, Hyperlipidemia, Hypertension History of Any Multi-Drug Resistant Organisms: None Reported Past Surgical History: No Surgical Hx Reported Past Anesthesia/Blood Transfusion Reactions: No Reported Reaction Past Psychological History: No Psychological Hx Reported Smoking Status: Never smoker Past Alcohol Use History: None Reported Past Drug Use History: None Reported - Past Family History Mother Family Medical History: Diabetes Mellitus Father Additional Family Medical History / Comment(s): mental illness <Olya Cruz - Last Filed: 12/22/23 17:57> General Exam Limitations: no limitations <Olya Cruz - Last Filed: 12/22/23 17:57> <Ten Lawson - Last Filed: 12/22/23 21:12> - General Exam Comments Initial Comments: Visual Physical Exam Vital signs reviewed General: Well-appearing, nontoxic, no acute distress. Head: Normocephalic, atraumatic Eyes: PERRLA, EOMI ENT: Airway patent Chest: Nonlabored breathing Skin: No visual rash, normal skin tone Neuro: Alert and oriented 3 Musculoskeletal: No gross abnormalities (Olya Cruz) GENERAL: Patient is well-developed and well-nourished. Patient is nontoxic and well- hydrated and is in no acute distress. ENT: Neck is soft and supple. No significant lymphadenopathy is noted. Oropharynx is clear. Moist mucous membranes. Neck has full range of motion without eliciting any pain. EYES: The sclera were anicteric and conjunctiva were pink and moist. Extraocular movements were intact and pupils were equal round and reactive to light. Eyelids were unremarkable. PULMONARY: Unlabored respirations. Good breath sounds bilaterally. No audible rales rhonchi or wheezing was noted. CARDIOVASCULAR: There is a regular rate and rhythm without any murmurs gallops or rubs. SKIN: Patient's hands are very erythematous as well as his arms and his anterior chest. NEUROLOGIC: Patient is alert and oriented x3. Cranial nerves II through XII are grossly intact. Motor and sensory are also intact. Normal speech, volume and content. Symmetrical smile. MUSCULOSKELETAL: Normal extremities with adequate strength and full range of motion. LYMPHATICS: No significant lymphadenopathy is noted PSYCHIATRIC: Normal psychiatric evaluation. (Ten Lawson) Course Vital Signs 12/22/23 12/22/23 17:49 19:50 Temperature 98.2 F 98 F Pulse Rate 103 H 97 Respiratory 20 17 Rate Blood Pressure 154/97 144/88 O2 Sat by Pulse 97 99 Oximetry Medical Decision Making <Olya Cruz - Last Filed: 12/22/23 17:57> <Ten Lawson - Last Filed: 12/22/23 21:12> - Medical Decision Making Quick note preformed and signed by Olya Cruz PA-C (Olya Cruz) Was pt. sent in by a medical professional or institution (HILARY Perez, HUMAN RESOURCES COMPLIANCE MANAGER, urgent care, hospital, or long-term...) When possible be specific @ -[No] Did you speak to anyone other than the patient for history (EMS, parent, family, police, friend...)? What history was obtained from this source @ -[No] Did you review nursing and triage notes (agree or disagree)? Why? @ -[I reviewed and agree with nursing and triage notes] Were old charts reviewed (outside hosp., previous admission, EMS record, old EKG, old radiological studies, urgent care reports/EKG's, long-term records)? Report findings @ -[No old charts were reviewed] Differential Diagnosis (chest pain, altered mental status, abdominal pain women, abdominal pain men, vaginal bleeding, weakness, fever, dyspnea, syncope, headache, dizziness, GI bleed, back pain, seizure, CVA, palpatations, mental health, musculoskeletal)? @ -[not applicable] EKG interpreted by me (3pts min.). @ -[As above] X-rays interpreted by me (1pt min.). @ -[None done] CT interpreted by me (1pt min.). @ -[None done] U/S interpreted by me (1pt. min.). @ -[None done] What testing was considered but not performed or refused? (CT, X-rays, U/S, labs)? Why? @ -[None] What meds were considered but not given or refused? Why? @ -[None] Did you discuss the management of the patient with other professionals (professionals i.e. , PA, HUMAN RESOURCES COMPLIANCE MANAGER, lab, RT, psych nurse, social work case manager, park manager, teacher, plant protection officer, case assistant)? Give summary @ -[No] Was smoking cessation discussed for >3mins.? @ -[No] Was critical care preformed (if so, how long)? @ -[No] Were there social determinants of health that impacted care today? How? (Homelessness, low income, unemployed, alcoholism, drug addiction, transportation, low edu. Level, literacy, decrease access to med. care, senior care, rehab)? @ -[No] Was there de-escalation of care discussed even if they declined (Discuss DNR or withdrawal of care, Hospice)? DNR status @ -[No] What co-morbidities impacted this encounter? (DM, HTN, Smoking, COPD, CAD, Cancer, CVA, ARF, Chemo, Hep., AIDS, mental health diagnosis, sleep apnea, morbid obesity)? @ -[None] Was patient admitted / discharged? Hospital course, mention meds given and route, prescriptions, significant lab abnormalities, going to OR and other pertinent info. @ -[hospital course] Undiagnosed new problem with uncertain prognosis? @ -[No] Drug Therapy requiring intensive monitoring for toxicity (Heparin, Nitro, Insulin, Cardizem)? @ -[No] Were any procedures done? @ -[No] Diagnosis/symptom? @ -[default] Acute, or Chronic, or Acute on Chronic? @ -[default] Uncomplicated (without systemic symptoms) or Complicated (systemic symptoms)? @ -[default] Side effects of treatment? @ -[No] Exacerbation, Progression, or Severe Exacerbation? @ -[No] Poses a threat to life or bodily function? How? (Chest pain, [place], [place], pneumonia, PE, COPD, DKA, ARF, appy, cholecystitis, CVA, Diverticulitis, Homicidal, Suicidal, threat to staff... and all critical care pts) @ -[No] (Ten Lawson) Disposition <Olya Cruz - Last Filed: 12/22/23 17:57> Is patient prescribed a controlled substance at d/c from ED?: No Time of Disposition: 19:31 <Ten Lawson - Last Filed: 12/22/23 21:12> Clinical Impression: Allergic reaction Disposition: HOME SELF-CARE Instructions (If sedation given, give patient instructions): Allergies (ED) Additional Instructions: Patient needs to stop taking his nitrates and mushroom coffee Prescriptions: predniSONE [Deltasone] 40 mg PO DAILY #8 tab Referrals: Helder Daniels MD [Primary Care Provider] - 1-2 days
[2023-12-22] MEDS: predniSONE 50 MG TAB PO STA (19:15)
[2023-12-22 20:30] VITALS: BP 144/88; PULSE 97; RESP 17; TEMP 98
== END 2023-12-22 19:50 | disposition home or self-care (01) ==
LOC: EC 17:30
DX: T78.40XA Allergy, unspecified, initial encounter (principal); I10 Essential (primary) hypertension; E78.5 Hyperlipidemia, unspecified; Z79.899 Other long term (current) drug therapy; Z91.011 Allergy to milk products
CPT/HCPCS: 99283; J7512

== ENCOUNTER → 2024-03-20 | Outpatient (CLI) | payer BC ==
[2024-03-20 15:25] VITALS: BP 143/86; PULSE 106; RESP 18; TEMP 97.9
--- NOTE | 2024-03-20 17:04 | P.SLEEP ---
History of Present Illness H&P Date: 03/20/24 This is a 48-year-old male patient, muscular morbidly obese male patient with a BMI of 42.1. 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 He is coming in due to concerns of obstructive sleep apnea. Has been having this issue for approximately 2 years. He has loud snoring, he is very much concerned about his sleep and he is very anxious as the patient is unable to maintain sleep due to frequent nocturnal arousals and sleep fragmentation. The patient goes to bed around 2:30 AM and gets out of bed at around 8:30 AM in the morning. Throughout the night, he wakes up choking and gasping for air and his sleep is excessively fragmented and he feels tired and fatigued and sleepy during the day. He his work hours are between 2:30 PM and midnight. He is chronically fatigued and sleepy. His Hertel score is at 12. He can easily take a nap when he is given the opportunity to do so. No nocturnal seizures. No heartburn. No chest pain. No cardiac arrhythmias. No history of any congestion heart failure. Based on all this, the patient is coming in for further investigation. Due to increased anxiety during sleep, the patient has been utilizing BuSpar 10 mg p.o. twice a day. He is known to have hypertension and hyperlipidemia. He has also sustained a chemical burn/occupational skin burn due to exposure to chemicals at work and he has undergone a recent skin biopsy awaiting final pathology and diagnosis. No sleep paralysis. No hallucinations. No cataplexy. He is a mouth breather. He sleeps on his side with the head of the bed elevated at around 20 to 30 degrees. Review of Systems Constitutional: Reports daytime sleepiness, Reports fatigue, Reports weight gain Eyes: denies as per HPI, denies blurred vision, denies bulging eye, denies decreased vision, denies diplopia, denies discharge, denies dry eye, denies irritation, denies itching, denies pain, denies photophobia, denies loss of peripheral vision, denies loss of vision, denies tunnel vision/blind spots Ears: deny: decreased hearing, ear discharge, earache, tinnitus Ears, nose, mouth and throat: Reports as per HPI Breasts: absent: as per HPI, gynecomastia Cardiovascular: Reports as per HPI Respiratory: Reports as per HPI, Reports sleep apnea, Reports snoring Gastrointestinal: Reports as per HPI Genitourinary: Reports as per HPI Musculoskeletal: Reports as per HPI Musculoskeletal: absent: ankle pain, ankle stiffness, ankle swelling, as per HPI, elbow pain, elbow stiffness, elbow swelling, foot pain, foot stiffness, foot swelling, hand pain, hand stiffness, hand swelling, hip pain, hip stiffness, hip swelling, knee pain, knee stiffness, knee swelling, shoulder pain, shoulder stiffness, shoulder swelling, wrist pain, wrist stiffness, wrist swelling Integumentary: Reports as per HPI Neurological: Reports as per HPI Psychiatric: Reports as per HPI Endocrine: Reports as per HPI, Reports fatigue Hematologic/Lymphatic: Reports as per HPI Allergic/Immunologic: Reports as per HPI Past Medical History Past Medical History: GERD/Reflux, Hyperlipidemia, Hypertension History of Any Multi-Drug Resistant Organisms: None Reported Past Surgical History: Cholecystectomy Past Anesthesia/Blood Transfusion Reactions: No Reported Reaction Past Psychological History: Anxiety Smoking Status: Never smoker Past Alcohol Use History: None Reported Past Drug Use History: None Reported - Past Family History Mother Family Medical History: Diabetes Mellitus Father Family Medical History: Sleep Apnea/CPAP/BIPAP Additional Family Medical History / Comment(s): mental illness (bipolar) Medications and Allergies Home Medications Medication Instructions Recorded Confirmed Type Atorvastatin [Lipitor] 20 mg PO HS 09/25/22 03/20/24 History Dextroamphetamine/Amphetamine 15 mg PO DAILY 09/25/22 09/25/22 History [Adderall Xr 15 mg Capsule] Losartan Potassium 100 mg PO HS 09/25/22 03/20/24 History Zolpidem [Ambien] 10 mg PO HS 09/25/22 09/25/22 History HYDROcodone/APAP 5-325MG [[place] 1 tab PO Q6HR PRN #6 tab 09/27/22 Rx 5-325] Pantoprazole Sodium [Protonix] 40 mg PO DAILY #30 tab 09/27/22 03/20/24 Rx Amoxic-Pot Clav 875-125Mg 1 tab PO BID 7 Days #14 tab 10/05/22 Rx [Augmentin 875-125] Ibuprofen [Motrin] 600 mg PO Q8HR PRN #30 tab 10/05/22 Rx amLODIPine [Norvasc] 5 mg PO DAILY 30 Days #30 tab 10/05/22 Rx predniSONE [Deltasone] 40 mg PO DAILY #8 tab 12/22/23 Rx busPIRone HCL 10 mg PO BID 03/20/24 03/20/24 History hydroCHLOROthiazide [Hydrodiuril] 25 mg PO DAILY 03/20/24 03/20/24 History Allergies Allergy/AdvReac Type Severity Reaction Status Date / Time Milk Containing Products AdvReac Swelling Verified 12/22/23 17:53 (Dairy) [Dairy] Physical Exam Vitals: Vital Signs Temp Pulse Resp BP Pulse Ox 03/20/24 15:23 97.9 F 106 H 18 143/86 97 Intake and Output 03/20/24 03/20/24 03/20/24 06:59 14:59 22:59 Other: Weight 141.067 kg Obese, calm and comfortable, not in acute distress. Body mass index is 42. The patient appeared well nourished and normally developed. Vital signs as documented. Head exam is unremarkable. No scleral icterus or corneal arcus noted. Neck is without jugular venous distension, thyromegaly, or carotid bruits. The patient is a Mallampati class IV. Carotid upstrokes are brisk bilaterally. Lungs are clear to auscultation and percussion. Cardiac exam reveals the PMI to be normally sized and situated. Rhythm is regular. First and second heart sounds normal. No murmurs, rubs or gallops. Abdominal exam reveals normal bowel sounds, no masses, no organomegaly and no aortic enlargement. Extremities are nonedematous and both femoral and pedal pulses are normal. Examination of the skin revealed no evidence of significant rashes, suspicious appearing nevi or other concerning lesions. Neurologically, the patient is awake and alert and the patient does not have any focal neurological deficit. Cranial nerves are essentially intact. Assessment and Plan Plan: Loud snoring, sleep fragmentation, chronic somnolence and sleepiness with an Hertel score of 12, high clinical suspicion for obstructive sleep apnea. Patient is a Mallampati class IV Obesity with a BMI of 42 Chronic anxiety, currently on BuSpar Hypertension Hyperlipidemia Acid reflux Plan The patient will need a home sleep study to evaluate for sleep breathing disorder/sleep apnea. Overall clinical suspicion for sleep apnea is high. Will proceed with a home sleep study and if positive will proceed with a CPAP titration to treat his symptomatic obstructive sleep apnea. Meanwhile, we will continue sleeping on the side with the head of the bed elevated. Continue BuSpar. Implement good sleep hygiene measures. Avoid alcohol drinking at least 3 hours prior to going to bed. Will continue to follow. Sleep Note - Sleep Data ESS Total: 12 - Sleep Note Sleep Note: Temperature: 97.9 F Pulse Rate: 106 Respiratory Rate: 18 Blood Pressure: 143/86 SpO2: 97 Height: 6 ft Weight: 141.067 kg BMI: Neck Circumference: 18.5
== END ==
LOC: 3 N SLEEP 14:43
PROVIDERS: ATTEND Internal Medicine Critical Care Medicine
DX: R06.83 Snoring (principal); R40.0 Somnolence; F41.9 Anxiety disorder, unspecified; E66.9 Obesity, unspecified; I10 Essential (primary) hypertension; E78.5 Hyperlipidemia, unspecified; K21.9 Gastro-esophageal reflux disease without esophagitis; Z68.41 Body mass index [BMI] 40.0-44.9, adult; Z91.011 Allergy to milk products; Z79.899 Other long term (current) drug therapy
CPT/HCPCS: 99211

== ENCOUNTER → 2024-04-02 | Outpatient (CLI) | payer BC ==
--- NOTE | 2024-04-20 22:47 | P.PCN ---
Date of Procedure: 05/13/24 Operative Findings: Home sleep study testing Date of service is 04/13/2024 History This is a 48-year-old male patient, muscular morbidly obese male patient with a BMI of 42.1. 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 He is coming in due to concerns of obstructive sleep apnea. Has been having this issue for approximately 2 years. He has loud snoring, he is very much concerned about his sleep and he is very anxious as the patient is unable to maintain sleep due to frequent nocturnal arousals and sleep fragmentation. The patient goes to bed around 2:30 AM and gets out of bed at around 8:30 AM in the morning. Throughout the night, he wakes up choking and gasping for air and his sleep is excessively fragmented and he feels tired and fatigued and sleepy during the day. He his work hours are between 2:30 PM and midnight. He is chronically fatigued and sleepy. His [place] score is at 12. He can easily take a nap when he is given the opportunity to do so. No nocturnal seizures. No heartburn. No chest pain. No cardiac arrhythmias. No history of any congestion heart failure. Based on all this, the patient is coming in for further investigation. Due to increased anxiety during sleep, the patient has been utilizing BuSpar 10 mg p.o. twice a day. He is known to have hypertension and hyperlipidemia. He has also sustained a chemical burn/occupational skin burn due to exposure to chemicals at work and he has undergone a recent skin biopsy awaiting final pathology and diagnosis. No sleep paralysis. No hallucinations. No cataplexy. He is a mouth breather. He sleeps on his side with the head of the bed elevated at around 20 to 30 degrees. Physical findings The patient's weight is 141 kg with a height of 6 feet. Technical description The [employer] system was used to complete his home sleep study. There is a type III home sleep study. Total recording duration was 10 hours and 30 minutes. The study started at 11:23 PM and ended at 9:37 AM. There was a total of 10 hours and 1 minutes of flow monitoring and 9 hours and 57 minutes of oxygen saturation monitoring. Results Respiratory analysis showed a total of 28 obstructive apneas and 10 and 18 obstructive hypopneas and the resulting AHI was 34.5 consistent with severe obstructive sleep apnea. Oxygenation analysis There was multiple oxygen saturations encountered throughout the sleep study. The baseline pulse ox was 96% on room air oxygen. Average pulse ox during sleep was 92% with a minimum pulse ox of 69%. This patient spent approximately 1 hours and 25 minutes of sleep time below pulse ox of 89% Cardiac summary Average heart rate was 85 with a minimum heart of 50 and a maximum of 128 Assessment Severe obstructive sleep apnea with an AHI of 34.5 Severe nocturnal oxygen desaturation with a minimum pulse ox of 69% Loud snoring with chronic hypersomnia sleepiness and an [place] score of 12 Obesity with a BMI of 42 Chronic anxiety on BuSpar Hypertension Hyperlipidemia Acid reflux Plan Proceed with CPAP titration for severe symptomatic obstructive sleep apnea.
== END ==
LOC: 3 N SLEEP 19:36
PROVIDERS: ATTEND Internal Medicine Critical Care Medicine
DX: Z53.21 Procedure and treatment not carried out due to patient leaving prior to being seen by health care provider (principal)

== ENCOUNTER → 2024-04-13 | Outpatient (CLI) | payer BC ==
--- NOTE | 2024-05-11 08:30 | P.PCN ---
Date of Procedure: 05/13/24 Operative Findings: Home sleep study testing Date of service is 04/13/2024 History This is a 48-year-old male patient, muscular morbidly obese male patient with a BMI of 42.1. 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 He is coming in due to concerns of obstructive sleep apnea. Has been having this issue for approximately 2 years. He has loud snoring, he is very much concerned about his sleep and he is very anxious as the patient is unable to maintain sleep due to frequent nocturnal arousals and sleep fragmentation. The patient goes to bed around 2:30 AM and gets out of bed at around 8:30 AM in the morning. Throughout the night, he wakes up choking and gasping for air and his sleep is excessively fragmented and he feels tired and fatigued and sleepy during the day. He his work hours are between 2:30 PM and midnight. He is chronically fatigued and sleepy. His [place] score is at 12. He can easily take a nap when he is given the opportunity to do so. No nocturnal seizures. No heartburn. No chest pain. No cardiac arrhythmias. No history of any congestion heart failure. Based on all this, the patient is coming in for further investigation. Due to increased anxiety during sleep, the patient has been utilizing BuSpar 10 mg p.o. twice a day. He is known to have hypertension and hyperlipidemia. He has also sustained a chemical burn/occupational skin burn due to exposure to chemicals at work and he has undergone a recent skin biopsy awaiting final pathology and diagnosis. No sleep paralysis. No hallucinations. No cataplexy. He is a mouth breather. He sleeps on his side with the head of the bed elevated at around 20 to 30 degrees. Physical findings The patient's weight is 141 kg with a height of 6 feet. Technical description The [employer] system was used to complete his home sleep study. There is a type III home sleep study. Total recording duration was 10 hours and 30 minutes. The study started at 11:23 PM and ended at 9:37 AM. There was a total of 10 hours and 1 minutes of flow monitoring and 9 hours and 57 minutes of oxygen saturation monitoring. Results Respiratory analysis showed a total of 28 obstructive apneas and 10 and 18 obstructive hypopneas and the resulting AHI was 34.5 consistent with severe obstructive sleep apnea. Oxygenation analysis There was multiple oxygen saturations encountered throughout the sleep study. The baseline pulse ox was 96% on room air oxygen. Average pulse ox during sleep was 92% with a minimum pulse ox of 69%. This patient spent approximately 1 hours and 25 minutes of sleep time below pulse ox of 89% Cardiac summary Average heart rate was 85 with a minimum heart of 50 and a maximum of 128 Assessment Severe obstructive sleep apnea with an AHI of 34.5 Severe nocturnal oxygen desaturation with a minimum pulse ox of 69% Loud snoring with chronic hypersomnia sleepiness and an [place] score of 12 Obesity with a BMI of 42 Chronic anxiety on BuSpar Hypertension Hyperlipidemia Acid reflux Plan Proceed with CPAP titration for severe symptomatic obstructive sleep apnea.
== END ==
LOC: 3 N SLEEP 09:59
PROVIDERS: ATTEND Internal Medicine Critical Care Medicine
DX: G47.33 Obstructive sleep apnea (adult) (pediatric) (principal); G47.36 Sleep related hypoventilation in conditions classified elsewhere; G47.8 Other sleep disorders; R40.0 Somnolence; E66.9 Obesity, unspecified; F41.9 Anxiety disorder, unspecified; I10 Essential (primary) hypertension; E78.5 Hyperlipidemia, unspecified; K21.9 Gastro-esophageal reflux disease without esophagitis; Z91.011 Allergy to milk products; Z79.899 Other long term (current) drug therapy; Z68.41 Body mass index [BMI] 40.0-44.9, adult

== ENCOUNTER → 2025-02-06 | Outpatient (CLI) | payer BC ==
--- NOTE | 2025-02-06 08:11 | US ---
EXAMINATION TYPE: US abdomen complete DATE OF EXAM: 02/06/2025 COMPARISON: CT & US 2021 CLINICAL INDICATION: Male, 49 years old with history of R94.5 ABNORMAL LFT'S; TECHNIQUE: Grayscale and color Doppler imaging of the abdomen was performed. FINDINGS: EXAM MEASUREMENTS: Liver Length: 17.9 cm normal is 15.5 cm. CBD: 0.6 cm Spleen: 11.8 cm Right Kidney: 11.5 x 5.5 x 5.4 cm Left Kidney: 12.0 x 6.5 x 5.3 cm Pancreas: obscured by overlying midline bowel gas Liver: measures slightly enlarged, attenuating, mildly heterogeneous Gallbladder: surgically absent Evidence for sonographic Shipley's sign: no CBD: visualized portions wnl, limited by overlying bowel gas Spleen: wnl Right Kidney: wnl Left Kidney: wnl Upper IVC: wnl Abd Aorta: proximal and mid portions obscured by overlying midline bowel gas, distal portion wnl IMPRESSION: 1. [facility], , 02/06/2025 8:08 AM
== END | disposition home or self-care (01) ==
LOC: RADUSWWP 06:58
PROVIDERS: ATTEND Family Medicine
DX: R16.0 Hepatomegaly, not elsewhere classified (principal); R94.5 Abnormal results of liver function studies
CPT/HCPCS: 76700